=== PATIENT | male | born 1950 | race Caucasian/White ===

== ENCOUNTER 2019-11-11 05:32 | Outpatient (RCR) | payer MEDICARE, OTHER, SELFPAY | END 2019-11-24 00:01 | LOC: ONCMED 05:32 | PROVIDERS: Family Provider Family Medicine; Visit Provider Internal Medicine Hematology & Oncology | DX: Z51.12 Encounter for antineoplastic immunotherapy (principal); C34.11 Malignant neoplasm of upper lobe, right bronchus or lung; J43.9 Emphysema, unspecified; F17.210 Nicotine dependence, cigarettes, uncomplicated; M06.9 Rheumatoid arthritis, unspecified; I48.92 Unspecified atrial flutter; R63.4 Abnormal weight loss; E03.9 Hypothyroidism, unspecified; Z79.899 Other long term (current) drug therapy; Z79.82 Long term (current) use of aspirin; Z79.01 Long term (current) use of anticoagulants; Z79.891 Long term (current) use of opiate analgesic; Z92.3 Personal history of irradiation; Z92.21 Personal history of antineoplastic chemotherapy | CPT/HCPCS: 36591; 80053 ×2; 85025 ×2; 96413 ×2; 99213; 99214 ×2; J1642 ×4; J7050 ×2; J9173 ×4 ==

== ENCOUNTER 2019-12-23 05:52 | Outpatient (RCR) | payer MEDICARE, OTHER, SELFPAY ==
--- NOTE | 2019-11-29 23:02 | ONC FU_ITS ---
[facility] Patient Note Patient: Chaitanya Underwood Unit #: [id number]: 1950 Dictated By: Artie QuinnDate of Visit: Nov 26, 2019 Onc MED Follow-Up/Prog Note Chief Complaint: Lung cancer History of Present Illness: Mr. Underwood is a 69-year-old gentleman who developed right upper back pain including spasm and stiffness. The pain was also radiating to the right arm and axillary area. It was a progressive in nature. He was evaluated by his primary care physician and on 11/03/2018 he had x-ray of the thoracic spine which was suspicious for large mass right upper lobe. On 11/04/[address] scan of thoracic spine which showed no evidence of thoracic spine fracture, central canal or neuroforaminal stenosis or widening or destruction. Again there were reports of the right upper lobe mass abuts the posterior and medial upper lung pleural without evidence of rib or vertebral body destruction. Thoracic spine central canal and neuroforaminal metastatic disease not entirely excluded. On same day he had CT scan of chest done which showed right upper lobe apical segment centrally necrotic mass with irregular thickened wall. No evidence of chest wall invasion or extension into thoracic spine foramina or vertebral bodies.. Mass measures 6.7 x 7.3 x 7.7. Right middle lobe groundglass 4.9 mm nodule is identified. Right lower lobe lateral segment 5 mm noncalcified pulmonary nodule unchanged. Right hilar 2.3 x 1.5 x 1.8 x 1.8 cm necrotic appearing lymph node is also noted. No axillary, mediastinal or left hilar enlarged lymph node seen. Chronic emphysema and pulmonary artery enlargement also seen. Unchanged right middle and lower lobe subcentimeter nodules. 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 CT PET scan done on 12/13/2018 reported 8.2 x 7.7 x 8.9 right apex mass with central necrosis SUV 18.9. Right superior hilar lymph node with SUV 10.9 and additional mid right hilum and precarinal lymph node with SUV of 7.2. No left-sided lymphadenopathy or osseous or liver metastases. 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 Status post colonoscopy done in October 2018 #2 polyps of sigmoid colon removed otherwise unremarkable Mr Underwood has a 40+ year history of smoking now pipe smoker. Had a 20+ pound weight loss due to poor appetite. Rheumatoid arthritis and was on anti-RA medication. Which will be on hold during chemotherapy except low-dose prednisone on as-needed basis He was started on combined chemoradiation with weekly carboplatin and Taxol on 12/30/2018. This treatment plan was concluded combined chemoradiation on 01/30/2019 followed by consolidation therapy with 3 week carboplatin/Taxol on 02/19/2019 and 03/19/2019. He then started on maintenance therapy with immunotherapy durvalumab biweekly for 12 months on 05/01/2019. Patient was on low dose methotrexate and Humira for chronic arthritis, low-dose prednisone and ibuprofen as-needed basis for arthritis again Patient has history of atrial flutter for which he underwent ablation and now on low-dose anticoagulation with Eliquis 2.5 mg twice a day Follow-up CT scan of chest done on 03/20/2019 showed interval cavitation and slightly smaller right upper lobe neoplasm; postradiation changes and stable appearance right lower lobe 3-4 mm noncalcified pulmonary nodule, chronic emphysema; Decrease in the right hilar lymphadenopathy He does admit that he is having a flare of joint/muscle pain and swelling on the day after the durvalumab is administered. He states he is having significant pain in the last 4-5 days. He is using Tylenol and occasionally ibuprofen for the pain. His prednisone dose has not changed. He continues to take 5 mg twice a day. He states he sees Dr. Sheth He does continue with the methotrexate. He is not yet considered resuming the Humira as we have limited data of use with immunotherapy Follow-up CT PET scan done on 08/08/2019 showed marked interval improvement in the right upper lobe mass next Resolution of malignant right hilar and mediastinal lymph nodes and resolution of right cervical lymph node. Continues on durvalumab maintenance therapy. CT PET scan done on 10/24/2019 showed there is a minimal ongoing improvement in the right upper lobe mass now measures 6.6 x 5 cm with SUV of 10.7 and continues to demonstrate significant central necrosis and cavitation. He continues with immunotherapy. Mr. Underwood presents today stating he is having more muscle and joint pain. He states it is been getting worse after each cycle and is now to the point to where he is almost measurable . He states the pain had been letting up between cycles but now does not. He states his pain is as bad today as it was the day after treatment. He has been trying oxycodone/APAP 5/325 mg and is not getting adequate relief. He states that he has had a history of left pleurisy and this pain hurts worse or as bad as a per se. He states his ball valving the left line and the right side chest wall. He states the chest wall pain feels a lot like pleurisy. He states that he thinks maybe the prednisone did help some but is not eager to increase it at this time. He has weaned himself down to 5 mg [address] He states Dr[address] Weiss did talk to him about changing his pain medication and he is willing to do that at this point. He states his pain is affecting his appetite and his ability to take care of himself as much as able to get out do things that he wants to do. He has had shortness of breath with the chest wall pain. He denies any diarrhea or constipation. He said no abdominal cramping. He states he is coughing off and on however it is been nonproductive and there is been no hemoptysis. He denies fever or chills. His states that she has seen a decline in his performance status as well to. His ECOG is 2. Past Medical History: Atrial flutter History of polio Past Surgical History: L-5 discectomy Left hammer toe surgery Left knee repair Right rotator cuff repair Partial colon resection in 2010 Allergies: Aricept Medications: Aspirin 1 Tablet (of 81 mg) Tablet Oral daily Colace 1 (100 mg) Capsule Oral daily PRN DilTIAZem HCl 1 Tablet (of 60 mg) Oral b.i.d. Eliquis 1 Tablet (of 2.5 mg) Oral b.i.d. Folic Acid 1 Tablet (of 2000 mg) Oral daily Ibuprofen 1 Tablet (of 200 mg) Tablet Oral q 6 hours PRN Irbesartan 1 Tablet (of 150 mg) Oral daily methotrexate 1 mg Solution q 7 days Metoprolol Tartrate 1 Tablet (of 50 mg) Oral b.i.d. MiraLax Pack Oral daily Oxycodone-Acetaminophen 1 Tablet (of 10-325 mg) Oral q 4 hours PRN Pantoprazole Sodium 1 Tablet (of 40 mg) Tablet, enteric coated Oral daily PredniSONE 1 Tablet (of 5 mg) Oral daily Family History: Mr. Underwood's mother at age 60: emphysema. Mr. Underwood's father at age 57: brain cancer. His paternal grandfather is : lung cancer. Social History: Mr. Underwood is and he is retired. Mr. Underwood no longer smokes but had smoked for 45 years. He has no history of drinking. He has indicated exposure to the following products: pipe. Pt states he quit smoking this past weekend. Review Of Symptoms: Constitutional Denies fevers, chills, worsening night sweats. He has excessive fatigue-due to pain. Allergic/Immunologic No reactions. Eyes Denies significant visual changes. No diplopia. No amaurosis. ENMT Denies changes in hearing, sore throat, mouth sores, difficulty or changes in swallowing ability, and/or sinus drainage. Hematologic/Lymphatic Denies easy bruising or bleeding. The patient denies any tender or palpable lymph nodes. Respiratory He is having dyspnea on exertion due to persistent chest wall pain. He has intermittent cough but no hemoptysis. Denies orthopnea. Cardiovascular Denies anginal chest pain, palpitations or orthopnea. Gastrointestinal Denies nausea, vomiting, diarrhea, GI bleeding, or worsening constipation. He has chronic constipation but is controlled with meds . Denies change in bowel habits and/or stool color, no heartburn or early satiety. Genitourinary (M) Denies hematuria, dysuria, increased frequency, urgency, hesitancy or incontinence. Musculoskeletal Denies joint pain, swelling or redness-currently. No decreased range of motion. Is having flare of RA symptoms the day after treatment and now they are lasting the entire 2 weeks between treatments-see above. Integumentary Denies chronic rashes, inflammation, ulcerations or skin changes. Neurologic Denies headache, blurred vision, and no areas of focal weakness or numbness. Assisted gait with cane. No sensory problems. Psychiatric Denies insomnia, depression, renuka or mood swings. Vital Signs: Performed on Nov 26, 2019 14:09 Height - 69.00 in Weight - 148.0 lbs (LOW) BSA - 1.82 sq.m BMI - 21.86 Temperature - 98.2 F (LOW) Pulse - 58 /min (LOW) Respiration - 22 /min BP - 117/53 mm(hg) O2 Sat - 100 % Pain - 6,1 - No physically strenuous activity, but ambulatory and able to carry out light or sedentary work (e.g. office work, light house work). (ECOG) Physical Examination: Constitutional Alert, oriented, no acute distress. Skin pink, warm and dry. Head Normocephalic; atraumatic. Eyes Conjunctivae and sclerae are clear and without icterus. Pupils are reactive and equal. Neck Supple without masses or thyromegaly. No jugular venous distension. Hematologic/Lymphatic No petechiae or purpura. No tender or palpable lymph nodes in the cervical or supraclavicular areas. Respiratory Lungs are clear to auscultation without rhonchi or wheezing. Cardiovascular Regular rate and rhythm of heart without murmurs,clicks, gallops or rubs. Chest Left subclavian venous access device insertion site is unremarkable. Abdomen Non-tender, non-distended, no masses, ascites. Good bowel sounds noted in all quads. No guarding or rebound tenderness. No pulsatile masses. Back/Spine Non-tender to palpation. Extremities No visible deformities, no cyanosis, clubbing or edema. Musculoskeletal No tenderness or swelling, normal range of motion without obvious weakness. Integumentary No rashes or lesions. Neurologic No sensory or motor deficits, normal cerebellar function, gait assisted with cane-chronic. Psychiatric Alert and oriented times three. Coherent speech. Verbalizes understanding of our discussions today. Laboratory:Test performed on Nov 10, 2019 08:10 Sodium 139 mmol/L Potassium 3.9 mmol/L Chloride 100 mmol/L CO2 26 mmol/L Anion Gap 16.9 BUN 27 mg/dL Creatinine 0.8 mg/dL Cr Clearance (Est) 83.5900 mL/min eGFR 96.4 mL/min Glucose 97 mg/dl Calcium 9.5 mg/dL Protein, Total 7.2 g/dL Albumin 4.4 g/dL Globulin 2.8 gm/dL Bilirubin, Total 0.4 mg/dL ALT (SGPT) 10 U/L AST (SGOT) 15 U/L Alkaline Phosphatase 95 U/L WBC 7.8 10 3/uL RBC 3.30 10 6/uL HGB 10.6 g/dL HCT 32.9 % MCV 99.7 fl MCH 32.1 pg MCHC 32.2 g/dl RDW 14.9 % Platelet Count 227 10 3/cmm MPV 10.5 fl Neutrophils 5.7 10 3/uL Lymphocytes 1.0 10 3/uL Monocytes 0.9 10 3/uL Eosinophils 0.1 10 3/uL Basophils 0.1 10 3/uL Neutrophil % 73.2 % Lymphocyte % 13.0 % Monocyte % 11.2 % Eosinophil % 1.7 % Basophils % 0.6 % Impression: Poorly differentiated squamous cell carcinoma of right upper lobe per CT-guided biopsy done on 11/14/2018 CT scan of chest done on 11/04/2018 showed right upper lobe mass 6.7 x 7.3 x 7.7 cm with right hilar 2.3 x 1.5 x 1.8 x 1.[address] scan of thoracic spine showed no evidence of thoracic spine fracture, or destruction or neuroforaminal stenosis. CT PET scan done on 12/13/2018 showed 8.2 x 7.7 x 8.9 cms mass right apex with central necrosis and SUV 18.9. T4 Right superior hilar lymph node with SUV 10.9 Additional mid right hilar and precarinal lymphadenopathy with SUV 7.2 No left sided lymphadenopathy or osseous liver metastases. A subcentimeter right cervical level IV lymph node FDG positive suspicious for metastatic disease N3 History of atrial flutter, being managed by cardiology Anemia, normocytic normochromic, due to chemotherapy MRI scan of the head done on 12/10/2018 showed no brain metastases Clinical stage IIIC Right upper back/axillary area pain due to right upper lobe malignancy Chronic emphysema/chronic smoking Weight loss History of colonic high-grade dysplastic polyps status post segmental resection with end-to-end anastomosis and recently done colonoscopy in October 2018 was unremarkable except 2 benign polyps were removed. Started on combined chemoradiation on 12/30/2018 with weekly carboplatin and Taxol Concluded on 01/30/2019 Along with SB RT to the cervical lymph node seen on CT PET scan Started on consolidation therapy with 3 weekly dose of carboplatin/Taxol on 02/19/2019 and finished 2 cycles of consolidation chemotherapy on 03/19/2019 as patient is high risk for recurrence of disease, as per NCCN guidelines, consolidation therapy with two cycle of chemotherapy followed by maintenance therapy with immunotherapy with durvalumab every 2 weeks for 12 months , may give him the best recurrence/progression free status, as literature has shown overall survival at 24 months was 66.3% for durvalumab versus 55.6% for placebo and progression free survival was 17.2 months for durvalumab versus 5.6 month with placebo and median time to or distant metastases was significant longer with durvalumab e.g 28.3 months versus 16.2 months with placebo Follow-up CT scan scan of chest done on 03/20/2019 showed interval cavitation and slightly smaller right upper lobe neoplasm. No interval rib destruction Interval right lateral mediastinal and tracheoesophageal groove fat induration at the level of the mass. Possible represent postradiation changes however tumoral infiltration not entirely excluded Stable appearance of right lower lobe 3-4 mm noncalcified pulmonary nodule Chronic emphysema Cold extremities, hypotension with mild bradycardia, blood pressure 92/39 pulse 60/m, probably medication induced patient is on CARMEN inhibitor, beta blockers and calcium channel beltran, discussed with Dr. Bardales merchandiser seasonal on 05/14/2019 and will reduce his irbesartan dose to 75 mg by mouth daily from 150 mg by mouth daily. Decrease right hilar lymphadenopathy measuring up to 12 mm compared to 18 mm. Follow-up CT PET scan done on 08/08/2019 showed right upper lobe mass now measures 7.3 x 4.8 cm is significantly more necrotic and now demonstrates central cavitation with medial hypermetabolic segments of soft tissue demonstrating an SUV of 11.9. This is consistent with positive response to therapy. There has been resolution of right superior hilar, right mid hilum, pre-carinal and right cervical level IV lymph node. He did have follow-up PET/CT on 10/24/2019 which continues to report minimal improvement in the right upper lobe mass. At that time it measured 6.6 x 5 cm with an SUV of 10.7. There is continued evidence of significant central necrosis and cavitation. There were no other findings to indicate metastatic disease or osseous disease. Mr. Underwood has completed 15 cycles of the Imfinzi. He states that every cycle he is having significant pain but is worsening every time. He states that just about the time it is due to repeat the Imfinzi he is starting to get slight relief. However with this last cycle he has not gotten any relief at all between the cycles. He is requesting to stop the Imfinzi at least temporarily to see if this will help his symptoms. Plan: 1. Hold Imfinzi at Mr. Underwood's request due to worsening side effects. 2. We will plan to set him up with a PET CT for restaging. His last PET/CT was September 2019-however, he is now experiencing more chest wall and lung pain; significant joint and muscle pain after each treatment with immunotherapy-Presumed flare of his rheumatoid arthritis. 3. He is currently using oxycodone 5/325 mg 2 tablets every 4 hours and this is not controlling his pain. We will switch him to MS IR 15 mg and have him try 1 or 2 every 2-4 hours as needed pain. We have also discussed that he could increase his prednisone from 5 mg daily back to 5 mg twice daily but he does not really want to change the prednisone currently. He states he really wants to get off of it. He is aware that he does not feel the morphine is helping much with his pain that he can try that???increasing the prednisone to 5 twice daily. 4. We could plan to add gabapentin in the future if the MSIR and increase prednisone is not helping his pain. 5. We will plan to have him follow-up with Dr. Weiss with a CBC CMP and a TSH after his PET scan. Requested the PET/CT scan be on December 05, 2019. I have also asked that the follow-up appointment not be on Saturday as we have not been getting the PET CT results until Saturday. 6. Mr. Underwood was instructed to contact us in interim should questions or problems arise. 7. Written prescription for MSIR per Dr. Lombardo. I have asked Mr. Underwood to let us know early next week if this is not helping his pain. Signed By: Artie Quinn-TORY, AOROMAN Weiss MD <<Signature on File>>
[2019-12-09 09:00] LABS: Basophils % 0.3 %; Eosinophils # 0.1 10^3/uL (0.0-0.8); Eosinophils % 0.4 %; Hematocrit 34.1 % (42.0-52.0); Lymphocytes # 0.8 10^3/uL (0.8-4.8); Lymphocytes % 7.2 %; Mean Corpuscular HGB Conc 32.3 g/dL (30.0-36.0); Mean Corpuscular Hemoglobin 32.8 pg (28.0-34.0); Mean Corpuscular Volume 101.8 fL (80-94); Mean Platelet Volume 10.7 fL (7.4-10.4); Monocytes # 0.7 10^3/uL (0.2-0.9); Monocytes % 5.9 %; Neutrophils # 9.5 10^3/uL (1.8-7.7); Neutrophils % 85.8 %; Nucleated Red Blood Cells % 0 %; Platelet Count 229 10^3/cmm (130-400); Red Blood Count 3.35 10^6/uL (4.1-5.3); Red Cell Distribution Width 15.6 % (12.1-15.1); White Blood Count 11.1 10^3/uL (4.0-10.0)
[2019-12-09 09:24] LABS: Alanine Aminotransferase 10 U/L (0-41); Alkaline Phosphatase 91 IU/L (40-130); Anion Gap 14.7 (5-19); Aspartate Amino Transferase 14 U/L (0-40); Blood Urea Nitrogen 30 mg/dL (8-23); Calcium 10.2 mg/Dl (8.8-10.2); Carbon Dioxide 27 mmol/L (22-29); Chloride 98 mmol/L (98-107); Globulin 3.3 g/dL (1.3-4.6); Glomerular Filtration Rate 84.2 mL/min (90-130); Glucose 123 mg/dL (74-106); Potassium 4.7 mmol/L (3.5-5.1); Sodium 135 mmol/L (136-145); Thyroid Stimulating Hormone 2.89 uIU/mL (0.27-4.20); Total Bilirubin 0.6 mg/dL (0.15-1.2); Total Protein 7.3 g/dL (6.6-8.7)
--- NOTE | 2019-12-10 08:11 | ONC FU_ITS ---
Dr. Weiss follow up note Patient: Chaitanya Underwood Unit #: [id number]: 1950 Dicatated By: Carmen Weiss M.D.Date of Visit:Dec 09, 2019 Onc Med Follow-up/Prog Note History of Present Illness: Mr. Underwood is a 69-year-old gentleman who developed right upper back pain including spasm and stiffness. The pain was also radiating to the right arm and axillary area. It was a progressive in nature. He was evaluated by his primary care physician and on 11/03/2018 he had x-ray of the thoracic spine which was suspicious for large mass right upper lobe. On 11/04/[address] scan of thoracic spine which showed no evidence of thoracic spine fracture, central canal or neuroforaminal stenosis or widening or destruction. Again there were reports of the right upper lobe mass abuts the posterior and medial upper lung pleural without evidence of rib or vertebral body destruction. Thoracic spine central canal and neuroforaminal metastatic disease not entirely excluded. On same day he had CT scan of chest done which showed right upper lobe apical segment centrally necrotic mass with irregular thickened wall. No evidence of chest wall invasion or extension into thoracic spine foramina or vertebral bodies.. Mass measures 6.7 x 7.3 x 7.7. Right middle lobe groundglass 4.9 mm nodule is identified. Right lower lobe lateral segment 5 mm noncalcified pulmonary nodule unchanged. Right hilar 2.3 x 1.5 x 1.8 x 1.8 cm necrotic appearing lymph node is also noted. No axillary, mediastinal or left hilar enlarged lymph node seen. Chronic emphysema and pulmonary artery enlargement also seen. Unchanged right middle and lower lobe subcentimeter nodules. 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 CT PET scan done on 12/13/2018 reported 8.2 x 7.7 x 8.9 right apex mass with central necrosis SUV 18.9. Right superior hilar lymph node with SUV 10.9 and additional mid right hilum and precarinal lymph node with SUV of 7.2. No left-sided lymphadenopathy or osseous or liver metastases. 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 Status post colonoscopy done in October 2018 #2 polyps of sigmoid colon removed otherwise unremarkable Mr Underwood has a 40+ year history of smoking now pipe smoker. Had a 20+ pound weight loss due to poor appetite. Rheumatoid arthritis and was on anti-RA medication. Which will be on hold during chemotherapy except low-dose prednisone on as-needed basis He was started on combined chemoradiation with weekly carboplatin and Taxol on 12/30/2018. This treatment plan was concluded combined chemoradiation on 01/30/2019 followed by consolidation therapy with 3 week carboplatin/Taxol on 02/19/2019 and 03/19/2019. He then started on maintenance therapy with immunotherapy durvalumab biweekly for 12 months on 05/01/2019. Patient was on low dose methotrexate and Humira for chronic arthritis, low-dose prednisone and ibuprofen as-needed basis for arthritis again Patient has history of atrial flutter for which he underwent ablation and now on low-dose anticoagulation with Eliquis 2.5 mg twice a day Follow-up CT scan of chest done on 03/20/2019 showed interval cavitation and slightly smaller right upper lobe neoplasm; postradiation changes and stable appearance right lower lobe 3-4 mm noncalcified pulmonary nodule, chronic emphysema; Decrease in the right hilar lymphadenopathy He does admit that he is having a flare of joint/muscle pain and swelling on the day after the durvalumab is administered. He states he is having significant pain in the last 4-5 days. He is using Tylenol and occasionally ibuprofen for the pain. His prednisone dose has not changed. He continues to take 5 mg twice a day. He states he sees Dr. Sheth He does continue with the methotrexate. He is not yet considered resuming the Humira as we have limited data of use with immunotherapy Follow-up CT PET scan done on 08/08/2019 showed marked interval improvement in the right upper lobe mass next Resolution of malignant right hilar and mediastinal lymph nodes and resolution of right cervical lymph node. Continues on durvalumab maintenance therapy. CT PET scan done on 10/24/2019 showed there is a minimal ongoing improvement in the right upper lobe mass now measures 6.6 x 5 cm with SUV of 10.7 and continues to demonstrate significant central necrosis and cavitation. He continues with immunotherapy. having more muscle and joint pain. He states it is been getting worse after each cycle and is now to the point to where he is almost measurable . He states the pain had been letting up between cycles but now does not. He states his pain is as bad today as it was the day after treatment. He has been trying oxycodone/APAP 5/325 mg and is not getting adequate relief. He states that he has had a history of left pleurisy and this pain hurts worse or as bad as a per se. He states his ball valving the left line and the right side chest wall. Was started on short-acting morphine Follow-up CT PET scan done on 12/05/2019 showed right upper lobe mass is minimally progressed in size at 7.7 x 4.9 cm but now has SUV of 17.2 up from 10.7 on previous study. Progression is most pronounced in the medial paravertebral portion of the mass. The central portion mass is entirely FDG negative indicating necrosis. Denies ongoing erosion of right fifth rib and a new lytic erosion of T5 vertebral body. Came for follow-up, complaining of progressive mid back pain not sufficiently controlled with short-acting morphine and otherwise no urine or stool incontinence, no lower extremity weakness. No fever or chills, no nausea or vomiting. Patient has history of chronic back pain in the past he has cord ' back surgery'for back pain. Also has history of disc prolapse. But no fever or chills no nausea or vomiting, no shortness of breath no peripheral neuropathy. Medications: Aspirin 1 Tablet (of 81 mg) Tablet Oral daily, Colace 1 (100 mg) Capsule Oral daily PRN, DilTIAZem HCl 1 Tablet (of 60 mg) Oral b.i.d., Eliquis 1 Tablet (of 2.5 mg) Oral b.i.d., Folic Acid 1 Tablet (of 2000 mg) Oral daily, Ibuprofen 1 Tablet (of 200 mg) Tablet Oral q 6 hours PRN, Irbesartan 1 Tablet (of 150 mg) Oral daily, methotrexate 1 mg Solution q 7 days, Metoprolol Tartrate 1 Tablet (of 50 mg) Oral b.i.d., MiraLax Pack Oral daily, Morphine Sulfate 1 - 2 Tablet (of 15 mg) Oral q 2 to 4 hours PRN, Oxycodone-Acetaminophen 1 Tablet (of 10-325 mg) Oral q 4 hours PRN, Pantoprazole Sodium 1 Tablet (of 40 mg) Tablet, enteric coated Oral daily, PredniSONE 1 Tablet (of 5 mg) Oral daily Allergies: Aricept Review of Systems: Constitutional - Appetite is fair and weight is stable. No fever, chills, hot flashes. Positive for occasional night sweats. Energy level is fair, ENMT - No sinus congestion/drainage. No mouth sores. No sore throat or difficulty swallowing, Hematologic/Lymphatic - Pt reports easy bruising, Respiratory - Occasional shortness of breath. Positive for mild cough. No pleuritic pain or hemoptysis, Cardiovascular - No angina pain. No palpitations, Gastrointestinal - No nausea, no vomiting. No heartburn or acid reflux. No diarrhea. Mild constipation. No blood in the stool or black stools, Genitourinary (M) - No dysuria or hematuria. No urinary frequency. No urgency or incontinence, Musculoskeletal - Positive for joint pain, Neurologic - No headache or dizziness. Occasional numbness/tingling in hands and feet. Pt also reports what he believes is nerve pain in his back, Psychiatric - No anxiety/depression at this time, Positive for insomnia. Vital Signs: Performed on Dec 09, 2019 09:53 Height - 69.00 in Weight - 145.8 lbs (LOW) BSA - 1.81 sq.m BMI - 21.53 Temperature - 98.4 F Pulse - 63 /min Respiration - 18 /min BP - 110/47 mm(hg) O2 Sat - 100 % Pain - 9 Performance Status: 2 - Ambulatory/capable of all self-care, unable to perform any work activities. Up and about more than 50% of waking hours. (ECOG) Physical Examination: ENMT - No oral exudates, ulcers, masses, thrush or mucositis. Oropharynx clear. Tongue normal, Respiratory - Lungs are clear to auscultation without rhonchi or wheezing, Cardiovascular - Regular rate and rhythm of heart, Abdomen - Non-tender, non-distended, Good bowel sounds. No guarding or rebound tenderness. No pulsatile masses, Extremities - no edema. Lab/Imaging: Test performed on Dec 09, 2019 09:32 Glucose 123 mg/dL BUN 30 mg/dL Creatinine 0.9 mg/dL Cr Clearance (Est) 74.30 mL/min Sodium 135 mmol/L Potassium 4.7 mmol/L Chloride 98 mmol/L CO2 27 mmol/L Calcium 10.2 mg/dL Protein, Total 7.3 g/dL Albumin 4 g/dL Globulin 3.3 g/dL Bilirubin, Total 0.6 mg/dL Alkaline Phosphatase 91 IU/L AST (SGOT) 14 IU/L ALT (SGPT) 10 IU/L WBC 11.1 10^9/L RBC 3.35 10^12/L HGB 11 g/dL HCT 34.1 % MCV 101.8 fl MCH 32.8 pg MCHC 32.3 g/dL RDW 15.6 % Platelet Count 229 10^9/L MPV 10.7 fL Neutrophils (Gran) 9.5 10^9/L Lymphocytes 0.8 10^9/L Monocytes 0.7 10^9/L Eosinophils 0.1 10^9/L Basophils 0 10^9/L Manual Lymphocytes 7.2 % Manual Monocytes 5.9 % Manual Eosinophils 0.4 % Manual Basophils 0.3 % NRBCs 0 /100 WBC Test performed on Dec 09, 2019 08:45 Neutrophil % 0.4 % Test performed on Nov 10, 2019 08:10 Anion Gap 16.9 eGFR 96.4 mL/min Lymphocyte % 13.0 % Monocyte % 11.2 % Eosinophil % 1.7 % Basophils % 0.6 % Impression: Poorly differentiated squamous cell carcinoma of right upper lobe per CT-guided biopsy done on 11/14/2018 CT scan of chest done on 11/04/2018 showed right upper lobe mass 6.7 x 7.3 x 7.7 cm with right hilar 2.3 x 1.5 x 1.8 x 1.[address] scan of thoracic spine showed no evidence of thoracic spine fracture, or destruction or neuroforaminal stenosis. CT PET scan done on 12/13/2018 showed 8.2 x 7.7 x 8.9 cms mass right apex with central necrosis and SUV 18.9. T4 Right superior hilar lymph node with SUV 10.9 Additional mid right hilar and precarinal lymphadenopathy with SUV 7.2 No left sided lymphadenopathy or osseous liver metastases. A subcentimeter right cervical level IV lymph node FDG positive suspicious for metastatic disease N3 History of atrial flutter, being managed by cardiology Anemia, normocytic normochromic, due to chemotherapy MRI scan of the head done on 12/10/2018 showed no brain metastases Clinical stage IIIC Right upper back/axillary area pain due to right upper lobe malignancy Chronic emphysema/chronic smoking Weight loss History of colonic high-grade dysplastic polyps status post segmental resection with end-to-end anastomosis and recently done colonoscopy in October 2018 was unremarkable except 2 benign polyps were removed. Started on combined chemoradiation on 12/30/2018 with weekly carboplatin and Taxol Concluded on 01/30/2019 Along with SB RT to the cervical lymph node seen on CT PET scan Started on consolidation therapy with 3 weekly dose of carboplatin/Taxol on 02/19/2019 and finished 2 cycles of consolidation chemotherapy on 03/19/2019 as patient is high risk for recurrence of disease, as per NCCN guidelines, consolidation therapy with two cycle of chemotherapy followed by maintenance therapy with immunotherapy with durvalumab every 2 weeks for 12 months , may give him the best recurrence/progression free status, as literature has shown overall survival at 24 months was 66.3% for durvalumab versus 55.6% for placebo and progression free survival was 17.2 months for durvalumab versus 5.6 month with placebo and median time to or distant metastases was significant longer with durvalumab e.g 28.3 months versus 16.2 months with placebo Follow-up CT scan scan of chest done on 03/20/2019 showed interval cavitation and slightly smaller right upper lobe neoplasm. No interval rib destruction Interval right lateral mediastinal and tracheoesophageal groove fat induration at the level of the mass. Possible represent postradiation changes however tumoral infiltration not entirely excluded Stable appearance of right lower lobe 3-4 mm noncalcified pulmonary nodule Chronic emphysema Cold extremities, hypotension with mild bradycardia, blood pressure 92/39 pulse 60/m, probably medication induced patient is on CARMEN inhibitor, beta blockers and calcium channel beltran, discussed with Dr. Bardales milliner helper on 05/14/2019 and will reduce his irbesartan dose to 75 mg by mouth daily from 150 mg by mouth daily. Decrease right hilar lymphadenopathy measuring up to 12 mm compared to 18 mm. Follow-up CT PET scan done on 08/08/2019 showed right upper lobe mass now measures 7.3 x 4.8 cm is significantly more necrotic and now demonstrates central cavitation with medial hypermetabolic segments of soft tissue demonstrating an SUV of 11.9. This is consistent with positive response to therapy. There has been resolution of right superior hilar, right mid hilum, pre-carinal and right cervical level IV lymph node. He did have follow-up PET/CT on 10/24/2019 which continues to report minimal improvement in the right upper lobe mass. At that time it measured 6.6 x 5 cm with an SUV of 10.7. There is continued evidence of significant central necrosis and cavitation. There were no other findings to indicate metastatic disease or osseous disease. Mr. Underwood has completed 15 cycles of the Imfinzi. He states that every cycle he is having significant pain but is worsening every time. He states that just about the time it is due to repeat the Imfinzi he is starting to get slight relief. However with this last cycle he has not gotten any relief at all between the cycles. He is requesting to stop the Imfinzi at least temporarily to see if this will help his symptoms. Plan: . Discussed with patient regarding his CT PET scan which was done on 12/05/2019 showed minimal progression in the size of right upper lobe mass which is 7.7 x 4.9 cm now an SUV of 17.2 up from 10.7 on the previous study. Progression is more pronounced in the medial paravertebral portion of the mass. Center portion of the mass is FDG negative indicating necrosis. There is ongoing erosion of right fifth rib and new lytic erosion of T5 vertebral body. As per patient every time with immunotherapy infusion his pain gets worse and now his mid back pain is more pronounced and progressive and CT PET scan did not show enough changes to explain reason for progressive mid back pain except ongoing healing of right fifth rib and now a lytic erosion lesion of T5 vertebral body. At this point we'll consider MRI scan of thoracic spine to rule out nonmalignant reasons for back pain including disc prolapse or nerve impingement or vertebral or paravertebral pathology. And we'll discuss with radiation oncology regarding CT PET scan and MRI scan findings and if there is any role of palliative radiation In the meantime we will discontinue with durvalumab and consider starting him on palliative chemotherapy with weekly cisplatin/Gemzar, will modified dose according to his performance status and plan to give him cisplatin 25 mg/m??? day 1 and 8 along with gemcitabine thousand milligrams per meter squared on day 1 and 8 and repeat cycle every 21 days Also consider adding long-acting morphine 30 mg every 12 hours and he will continue his pain medication for breakthrough and patient return to clinic after MRI scan of thoracic spine in the meantime we'll obtain approval from his insurance regarding chemotherapy. All the side effect possible benefits associated with chemotherapy including bone marrow suppression, nephrotoxicity, ototoxicity especially with cisplatin were mentioned further teaching will be done by chemotherapy nurse. Signed By: Carmen Weiss M.D. <<Signature on File>>
[2019-12-17 09:23] LABS: Basophils % 0.1 %; Eosinophils # 0.1 10^3/uL (0.0-0.8); Eosinophils % 1.3 %; Hemoglobin 9.9 g/dL (11.7-16.6); Lymphocytes # 0.6 10^3/uL (0.8-4.8); Mean Corpuscular Hemoglobin 31.9 pg (28.0-34.0); Mean Corpuscular Volume 96.8 fL (80-94); Mean Platelet Volume 10.9 fL (7.4-10.4); Monocytes # 0.8 10^3/uL (0.2-0.9); Monocytes % 10.5 %; Neutrophils # 6.4 10^3/uL (1.8-7.7); Neutrophils % 79.7 %; Nucleated Red Blood Cells % 0 %; Platelet Count 210 10^3/cmm (130-400); Red Cell Distribution Width 14.6 % (12.1-15.1)
--- NOTE | 2019-12-17 09:28 | MR_ITS ---
WS: [id number] MRI THORACIC SPINE with and without contrast. HISTORY: RESTAGING EVAL; HX CANCER;BACK PAIN;LUNG CANCER COMPARISON: PET/CT 12/05/2019 TECHNIQUE: Multiplanar sequences are performed in sagittal and axial planes. Study performed with and without contrast. Survey the cervical spine demonstrates disc bulging and stenosis centrally. Progression of known metastatic involvement of the thoracic vertebra and the adjacent paravertebral s oft tissues and ribs. T1 areas of decreased signal in the RIGHT lateral T4 and T5 vertebral bodies wi th extension into the posterior elements and through the T4-5 disc space and paravertebral soft tissu es. Mass from the RIGHT upper lobe pulmonary neoplasm with contiguous extension into the soft tissue s and osseous structures. RIGHT upper lobe, paravertebral and osseous mass extends over at least a le ngth of 8.7 cm and transversely greater than 7 cm. There is enhancement of soft tissues and bone invo lvement of the transverse process and posterior elements of T5 and to a lesser extent T4. Neoplastic extension into the T4-5 neural foramen. There is enhancement abutting the RIGHT lateral thecal sac an d epidural space. Additional mild enhancement in the RIGHT T3-4 foramen. Metastatic involvement of th e fourth and fifth ribs posterior laterally on the RIGHT. There is pleural thickening and enhancement in the RIGHT upper lobe and necrotic RIGHT upper lobe pulmonary mass. Compared to the PET/CT the necrotic RIGHT upper lobe mass and pleural involvement have not significan tly changed. Progression of metastatic disease to the fourth and fifth vertebral bodies. No cord compression. There is enhancement in the prevertebral soft tissue space extending into the posterior mediastinum a djacent to the esophagus. Visualized upper abdomen is negative. MR/MR thoracic spine wo/w [id number] IMPRESSION: 1. 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 2. Soft tissue tumor enhancement extends through the RIGHT T4-5 foramen to abu t the epidural space. There is no cord compression at this time. Additional enh ancement without extension to the epidural space in the RIGHT T3-4 foramen. 3. Necrotic RIGHT upper lobe neoplasm and adjacent pleural involvement. Pleura l involvement has progressed but the overall neoplasm on this examination is pr obably not changed. 4. Soft tissue tumor extends into the prevertebral soft tissue space and exten ds posterior to the esophagus at the T3-T5 levels.
[2019-12-17 09:37] LABS: Alanine Aminotransferase 10 U/L (0-41); Albumin Level 3.5 g/dL (3.5-5.2); Alkaline Phosphatase 80 IU/L (40-130); Aspartate Amino Transferase 15 U/L (0-40); Blood Urea Nitrogen 23 mg/dL (8-23); Calcium 10.1 mg/Dl (8.8-10.2); Carbon Dioxide 28 mmol/L (22-29); Chloride 93 mmol/L (98-107); Globulin 3.1 g/dL (1.3-4.6); Glomerular Filtration Rate 84.2 mL/min (90-130); Glucose 127 mg/dL (74-106); Sodium 132 mmol/L (136-145); Total Bilirubin 0.4 mg/dL (0.15-1.2); Total Protein 6.6 g/dL (6.6-8.7)
--- NOTE | 2019-12-21 15:34 | ONC FU_ITS ---
Dr. Weiss follow up note Patient: Chaitanya Underwood Unit #: [id number]: 1950 Dicatated By: Carmen Weiss M.D.Date of Visit:Dec 21, 2019 Onc Med Follow-up/Prog Note History of Present Illness: Mr. Underwood is a 69-year-old gentleman who developed right upper back pain including spasm and stiffness. The pain was also radiating to the right arm and axillary area. It was a progressive in nature. He was evaluated by his primary care physician and on 11/03/2018 he had x-ray of the thoracic spine which was suspicious for large mass right upper lobe. On 11/04/[address] scan of thoracic spine which showed no evidence of thoracic spine fracture, central canal or neuroforaminal stenosis or widening or destruction. Again there were reports of the right upper lobe mass abuts the posterior and medial upper lung pleural without evidence of rib or vertebral body destruction. Thoracic spine central canal and neuroforaminal metastatic disease not entirely excluded. On same day he had CT scan of chest done which showed right upper lobe apical segment centrally necrotic mass with irregular thickened wall. No evidence of chest wall invasion or extension into thoracic spine foramina or vertebral bodies.. Mass measures 6.7 x 7.3 x 7.7. Right middle lobe groundglass 4.9 mm nodule is identified. Right lower lobe lateral segment 5 mm noncalcified pulmonary nodule unchanged. Right hilar 2.3 x 1.5 x 1.8 x 1.8 cm necrotic appearing lymph node is also noted. No axillary, mediastinal or left hilar enlarged lymph node seen. Chronic emphysema and pulmonary artery enlargement also seen. Unchanged right middle and lower lobe subcentimeter nodules. 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 CT PET scan done on 12/13/2018 reported 8.2 x 7.7 x 8.9 right apex mass with central necrosis SUV 18.9. Right superior hilar lymph node with SUV 10.9 and additional mid right hilum and precarinal lymph node with SUV of 7.2. No left-sided lymphadenopathy or osseous or liver metastases. 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 Status post colonoscopy done in October 2018 #2 polyps of sigmoid colon removed otherwise unremarkable Mr Underwood has a 40+ year history of smoking now pipe smoker. Had a 20+ pound weight loss due to poor appetite. Rheumatoid arthritis and was on anti-RA medication. Which will be on hold during chemotherapy except low-dose prednisone on as-needed basis He was started on combined chemoradiation with weekly carboplatin and Taxol on 12/30/2018. This treatment plan was concluded combined chemoradiation on 01/30/2019 followed by consolidation therapy with 3 week carboplatin/Taxol on 02/19/2019 and 03/19/2019. He then started on maintenance therapy with immunotherapy durvalumab biweekly for 12 months on 05/01/2019. Patient was on low dose methotrexate and Humira for chronic arthritis, low-dose prednisone and ibuprofen as-needed basis for arthritis again Patient has history of atrial flutter for which he underwent ablation and now on low-dose anticoagulation with Eliquis 2.5 mg twice a day Follow-up CT scan of chest done on 03/20/2019 showed interval cavitation and slightly smaller right upper lobe neoplasm; postradiation changes and stable appearance right lower lobe 3-4 mm noncalcified pulmonary nodule, chronic emphysema; Decrease in the right hilar lymphadenopathy He does admit that he is having a flare of joint/muscle pain and swelling on the day after the durvalumab is administered. He states he is having significant pain in the last 4-5 days. He is using Tylenol and occasionally ibuprofen for the pain. His prednisone dose has not changed. He continues to take 5 mg twice a day. He states he sees Dr. Sheth He does continue with the methotrexate. He is not yet considered resuming the Humira as we have limited data of use with immunotherapy Follow-up CT PET scan done on 08/08/2019 showed marked interval improvement in the right upper lobe mass next Resolution of malignant right hilar and mediastinal lymph nodes and resolution of right cervical lymph node. Continues on durvalumab maintenance therapy. CT PET scan done on 10/24/2019 showed there is a minimal ongoing improvement in the right upper lobe mass now measures 6.6 x 5 cm with SUV of 10.7 and continues to demonstrate significant central necrosis and cavitation. He continues with immunotherapy. having more muscle and joint pain. He states it is been getting worse after each cycle and is now to the point to where he is almost measurable . He states the pain had been letting up between cycles but now does not. He states his pain is as bad today as it was the day after treatment. He has been trying oxycodone/APAP 5/325 mg and is not getting adequate relief. He states that he has had a history of left pleurisy and this pain hurts worse or as bad as a per se. He states his ball valving the left line and the right side chest wall. Was started on short-acting morphine Follow-up CT PET scan done on 12/05/2019 showed right upper lobe mass is minimally progressed in size at 7.7 x 4.9 cm but now has SUV of 17.2 up from 10.7 on previous study. Progression is most pronounced in the medial paravertebral portion of the mass. The central portion mass is entirely FDG negative indicating necrosis. Denies ongoing erosion of right fifth rib and a new lytic erosion of T5 vertebral body. complaining of progressive mid back pain not sufficiently controlled with short-acting morphine and otherwise no urine or stool incontinence, no lower extremity weakness. No fever or chills, no nausea or vomiting. Patient has history of chronic back pain in the past he has ' back surgery'for back pain. 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 There is no cord compression at this time. Additional enhancement without extension to the epidural space and the right T3-4 for a month. Necrotic right upper lobe neoplasm and adjacent pleural involvement. Involvement has progressed but overall neoplasm on the examination is probably not changed. Soft tissue tumor extends into prevertebral soft tissue space and extends posterior to the esophagus at the T3-5 levels. Came for follow-up, complaining of mid back pain especially when he moves and current pain medication is controlling that reasonably well. Pain is less when he stabilize his spine. Denies any lower extremity weakness or numbness denies any urine or stool incontinence. He is here to discuss but is MRI thoracic spine findings and further plans Medications: Aspirin 1 Tablet (of 81 mg) Tablet Oral daily, Colace 1 (100 mg) Capsule Oral daily PRN, DilTIAZem HCl 1 Tablet (of 60 mg) Oral b.i.d., Eliquis 1 Tablet (of 2.5 mg) Oral b.i.d., Folic Acid 1 Tablet (of 2000 mg) Oral daily, Ibuprofen 1 Tablet (of 200 mg) Tablet Oral q 6 hours PRN, Irbesartan 1 Tablet (of 150 mg) Oral daily, methotrexate 1 mg Solution q 7 days, Metoprolol Tartrate 1 Tablet (of 50 mg) Oral b.i.d., MiraLax Pack Oral daily, Morphine Sulfate 1 - 2 Tablet (of 15 mg) Oral q 2 to 4 hours PRN, Oxycodone-Acetaminophen 1 Tablet (of 10-325 mg) Oral q 4 hours PRN, Pantoprazole Sodium 1 Tablet (of 40 mg) Tablet, enteric coated Oral daily, PredniSONE 1 Tablet (of 5 mg) Oral daily Allergies: Aricept Review of Systems: Constitutional - Appetite is fair and weight is stable. No fever, chills, hot flashes. Positive for occasional night sweats. Energy level is fair, ENMT - No sinus congestion/drainage. No mouth sores. No sore throat or difficulty swallowing, Hematologic/Lymphatic - Pt reports easy bruising, Respiratory - Occasional shortness of breath. Positive for mild cough. No pleuritic pain or hemoptysis, Cardiovascular - No angina pain. No palpitations, Gastrointestinal - No nausea, no vomiting. No heartburn or acid reflux. No diarrhea. Mild constipation. No blood in the stool or black stools, Genitourinary (M) - No dysuria or hematuria. No urinary frequency. No urgency or incontinence, Musculoskeletal - Positive for joint pain, Neurologic - No headache or dizziness. Occasional numbness/tingling in hands and feet. Pt also reports what he believes is nerve pain in his back, Psychiatric - No anxiety/depression at this time, Positive for insomnia. Vital Signs: Performed on Dec 21, 2019 08:43 Height - 69.00 in Weight - 142.8 lbs (LOW) BSA - 1.79 sq.m BMI - 21.09 Temperature - 98.5 F Pulse - 66 /min Respiration - 20 /min BP - 103/40 mm(hg) O2 Sat - 97 % Pain - 8 Performance Status: 2 - Ambulatory/capable of all self-care, unable to perform any work activities. Up and about more than 50% of waking hours. (ECOG) Physical Examination: ENMT - No oral exudates, ulcers, masses, thrush or mucositis. Oropharynx clear. Tongue normal, Respiratory - Lungs are clear to auscultation without rhonchi or wheezing, Cardiovascular - Regular rate and rhythm of heart, Abdomen - Non-tender, non-distended, Good bowel sounds. No guarding or rebound tenderness. No pulsatile masses, Extremities - no edema. Lab/Imaging: Test performed on Dec 17, 2019 09:05 Sodium 132 mmol/L Potassium 4.0 mmol/L Chloride 93 mmol/L CO2 28 mmol/L Anion Gap 15.0 BUN 23 mg/dL Creatinine 0.9 mg/dL Cr Clearance (Est) 74.50 mL/min eGFR 84.2 mL/min Glucose 127 mg/dL Calcium 10.1 mg/Dl Protein, Total 6.6 g/dL Albumin 3.5 g/dL Globulin 3.1 g/dL Bilirubin, Total 0.4 mg/dL ALT (SGPT) 10 U/L AST (SGOT) 15 U/L Alkaline Phosphatase 80 IU/L WBC 8.0 10 3/uL RBC 3.10 10 6/uL HGB 9.9 g/dL HCT 30.0 % MCV 96.8 fL MCH 31.9 pg MCHC 33.0 g/dL RDW 14.6 % Platelet Count 210 10 3/cmm MPV 10.9 fL Neutrophils 6.4 10 3/uL Lymphocytes 0.6 10 3/uL Monocytes 0.8 10 3/uL Eosinophils 0.1 10 3/uL Basophils 0.0 10 3/uL Neutrophil % 79.7 % Lymphocyte % 8.0 % Monocyte % 10.5 % Eosinophil % 1.3 % Basophils % 0.1 % Test performed on Dec 09, 2019 09:32 Manual Lymphocytes 7.2 % Manual Monocytes 5.9 % Manual Eosinophils 0.4 % Manual Basophils 0.3 % NRBCs 0 /100 WBC Impression: Poorly differentiated squamous cell carcinoma of right upper lobe per CT-guided biopsy done on 11/14/2018 CT scan of chest done on 11/04/2018 showed right upper lobe mass 6.7 x 7.3 x 7.7 cm with right hilar 2.3 x 1.5 x 1.8 x 1[address] scan of thoracic spine showed no evidence of thoracic spine fracture, or destruction or neuroforaminal stenosis. CT PET scan done on 12/13/2018 showed 8.2 x 7.7 x 8.9 cms mass right apex with central necrosis and SUV 18.9. T4 Right superior hilar lymph node with SUV 10.9 Additional mid right hilar and precarinal lymphadenopathy with SUV 7.2 No left sided lymphadenopathy or osseous liver metastases. A subcentimeter right cervical level IV lymph node FDG positive suspicious for metastatic disease N3 History of atrial flutter, being managed by cardiology Anemia, normocytic normochromic, due to chemotherapy MRI scan of the head done on 12/10/2018 showed no brain metastases Clinical stage IIIC Right upper back/axillary area pain due to right upper lobe malignancy Chronic emphysema/chronic smoking Weight loss History of colonic high-grade dysplastic polyps status post segmental resection with end-to-end anastomosis and recently done colonoscopy in October 2018 was unremarkable except 2 benign polyps were removed. Started on combined chemoradiation on 12/30/2018 with weekly carboplatin and Taxol Concluded on 01/30/2019 Along with SB RT to the cervical lymph node seen on CT PET scan Started on consolidation therapy with 3 weekly dose of carboplatin/Taxol on 02/19/2019 and finished 2 cycles of consolidation chemotherapy on 03/19/2019 as patient is high risk for recurrence of disease, as per NCCN guidelines, consolidation therapy with two cycle of chemotherapy followed by maintenance therapy with immunotherapy with durvalumab every 2 weeks for 12 months , may give him the best recurrence/progression free status, as literature has shown overall survival at 24 months was 66.3% for durvalumab versus 55.6% for placebo and progression free survival was 17.2 months for durvalumab versus 5.6 month with placebo and median time to or distant metastases was significant longer with durvalumab e.g 28.3 months versus 16.2 months with placebo Follow-up CT scan scan of chest done on 03/20/2019 showed interval cavitation and slightly smaller right upper lobe neoplasm. No interval rib destruction Interval right lateral mediastinal and tracheoesophageal groove fat induration at the level of the mass. Possible represent postradiation changes however tumoral infiltration not entirely excluded Stable appearance of right lower lobe 3-4 mm noncalcified pulmonary nodule Chronic emphysema Cold extremities, hypotension with mild bradycardia, blood pressure 92/39 pulse 60/m, probably medication induced patient is on CARMEN inhibitor, beta blockers and calcium channel beltran, discussed with Dr. Bardales chief credit officer on 05/14/2019 and will reduce his irbesartan dose to 75 mg by mouth daily from 150 mg by mouth daily. Decrease right hilar lymphadenopathy measuring up to 12 mm compared to 18 mm. Follow-up CT PET scan done on 08/08/2019 showed right upper lobe mass now measures 7.3 x 4.8 cm is significantly more necrotic and now demonstrates central cavitation with medial hypermetabolic segments of soft tissue demonstrating an SUV of 11.9. This is consistent with positive response to therapy. There has been resolution of right superior hilar, right mid hilum, pre-carinal and right cervical level IV lymph node. He did have follow-up PET/CT on 10/24/2019 which continues to report minimal improvement in the right upper lobe mass. At that time it measured 6.6 x 5 cm with an SUV of 10.7. There is continued evidence of significant central necrosis and cavitation. There were no other findings to indicate metastatic disease or osseous disease. Mr. Underwood has completed 15 cycles of the Imfinzi. He states that every cycle he is having significant pain but is worsening every time. He states that just about the time it is due to repeat the Imfinzi he is starting to get slight relief. However with this last cycle he has not gotten any relief at all between the cycles. He is requesting to stop the Imfinzi at least temporarily to see if this will help his symptoms. Plan: . Discussed with patient regarding his labs white blood count 8 hemoglobin 9.9 hematocrit 30 platelets 210,000 CMP within normal limit except sodium 132. An MRI scan of thoracic spine findings which showed disease progression but no cord compression or epidural space involvement. Clinically, patient is doing reasonably well at in moderate distress due to progressive mid upper back pain and follow-up MRI scan of thoracic spine shows disease progression but no evidence of cord compression or epidural space involvement at this time. His case was discussed with radiation oncology Dr. Aldana who will evaluate him for palliative radiation if possible if not then will consider palliative chemotherapy with weekly cisplatin/gemcitabine, once approval from his insurance obtained. We will refer him to radiation oncology for evaluation if palliative radiation is considered then will hold his chemotherapy therapy until radiation is completed otherwise start him on palliative chemotherapy as planned. And return to clinic 1 week after chemotherapy is initiated. Patient was also advised to use thoracic brace to stabilize T4-T5 spine area, which may improve his pain while taking pain medication as directed. Role of hospice was also discussed but patient and his wants to try radiation if possible if not then palliative chemotherapy before they consider hospice care. Signed By: Carmen Weiss M.D. <<Signature on File>>
[2019-12-22] MEDS: sodium chloride 0.9% 1,000 ML 999 ML IV (10:25)
--- NOTE | 2019-12-23 | CTR_ITS ---
Radation Therapy Planning CT images; total exam DLP: 386.16 mGy-cm MTDD
== END 2019-12-25 23:59 | disposition home or self-care (01) ==
LOC: ONCMED 05:52
PROVIDERS: Internal Medicine Hematology & Oncology; Family Provider Family Medicine; PCP Family Medicine; Visit Provider Radiology Radiation Oncology
DX: C79.51 Secondary malignant neoplasm of bone (principal); C34.11 Malignant neoplasm of upper lobe, right bronchus or lung; C77.8 Secondary and unspecified malignant neoplasm of lymph nodes of multiple regions; C78.2 Secondary malignant neoplasm of pleura; R63.4 Abnormal weight loss; M06.9 Rheumatoid arthritis, unspecified; I48.92 Unspecified atrial flutter; Z79.01 Long term (current) use of anticoagulants; J43.9 Emphysema, unspecified; D64.81 Anemia due to antineoplastic chemotherapy; G89.3 Neoplasm related pain (acute) (chronic); Z79.899 Other long term (current) drug therapy; Z79.82 Long term (current) use of aspirin; Z79.52 Long term (current) use of systemic steroids; Z79.891 Long term (current) use of opiate analgesic; Z90.49 Acquired absence of other specified parts of digestive tract; Z92.3 Personal history of irradiation; Z87.891 Personal history of nicotine dependence; Z86.12 Personal history of poliomyelitis; Z92.21 Personal history of antineoplastic chemotherapy
CPT/HCPCS: 36591; 72157; 77290; 77334; 77470; 80053; 84443; 85025; 96360; 99214; 99215; A9579; J7030; Q9967

== ENCOUNTER → 2019-12-29 13:13 | Outpatient (BNVA) | payer MEDICARE, OTHER, SELFPAY | PROVIDERS: Family Provider Family Medicine; PCP Family Medicine; Visit Provider Internal Medicine Rheumatology | DX: M05.89 Other rheumatoid arthritis with rheumatoid factor of multiple sites (principal); Z79.899 Other long term (current) drug therapy; M15.9 Polyosteoarthritis, unspecified; J44.9 Chronic obstructive pulmonary disease, unspecified; Z87.891 Personal history of nicotine dependence | CPT/HCPCS: 99214 ==

== ENCOUNTER 2020-01-08 05:47 | Outpatient (RCR) | payer MEDICARE, OTHER, SELFPAY ==
--- NOTE | 2019-12-31 17:57 | ONCRAD TMN_ITS ---
Radiation Oncology Weekly Treatment Management Patient: Chaitanya Underwood MR#: [id number] : 1950> Age: 69> Sex: Male Dictated by: Dr. Armand Aldana Date of Service: 12/30/2019 Referring Physician(s) : Fernando Guerrero M.D. Primary Diagnosis: C79.51 - Secondary malignant neoplasm of bone, Diagnosed 12/21/2019 (Active) C34.11 - Malignant neoplasm of upper lobe, right bronchus or lung, Diagnosed 11/14/2018 (Active) Stage IIIB, T4, N3, M0 Radiotherapy to date: Course: T SpineSBRT, Treatment Site: T spine SBRT, Ref. ID: [id number], Energy: 6X, Dose/Fx (cGy): 500, #Fx: , Dose Correction (cGy): 0, Total Dose (cGy): 500, Start Date: 12/30/2019, Elapsed Days: 0 Current Complaints/Interval History: Constitutional Complains of fever. Denies lack of appetite. Weight gain of 5 lbs since starting decadron. Complains of mid upper back pain that was improved with decadron Respiratory Denies cough, dyspnea and wheezing. Gastrointestinal Complains of constipation. Current Medications: Aspirin, colace, dilTIAZem HCl, eliquis, folic Acid, ibuprofen, irbesartan, methotrexate, metoprolol Tartrate, miraLax, morphine Sulfate, morphine Sulfate, morphine Sulfate ER, oxycodone-Acetaminophen, oxycodone-Acetaminophen, pantoprazole Sodium, predniSONE. Allergies: Aricept. Vital Signs: Performed on 12/30/2019 1:56 PM Weight - 149 lbs, Temperature - 97.9 f, Pulse - 57, Respiration - 16, O2 Sat - 100 %, Pain - 7 and BP - 139/ 59 mm(hg)(/low). Physical Exam: Appears stable, no skin erythema or desquamation. Performance Status: 2 - Ambulatory/capable of all self-care, unable to perform any work activities. Up and about more than 50% of waking hours. (ECOG) Lab: Test performed on 12/17/2019 9:05 AM RBC - 3.10 10 6/ul (low), HGB - 9.9 g/dl (low), HCT - 30.0 % (low), MCV - 96.8 fl (high), MPV - 10.9 fl (high), Lymphocytes - 0.6 10 3/ul (low), Sodium - 132 mmol/l (low), Chloride - 93 mmol/l (low), eGFR - 84.2 ml/min (low) and Glucose - 127 mg/dl (high). Imaging: No new diagnostic imaging was performed since the last weekly treatment visit. All radiation therapy related imaging (including but not limited to CBCT generated images) was reviewed. Appropriate changes, if any, were made to assure accurate target localization. Impression/Plan: Tolerating treatment well. Continue treatment as planned. I instructed the patient to decrease the use of morphine since his pain is better and he is constipated. Continue decadron 4mg bid and start tapering to 4mg daily on this coming Saturday x 5days, then continue tapering to 2mg daily x 5 days and then stop. CPT: 49134 Signed by: Dr. Armand Aldana>12/31/2019 5:55:49 PM <<Signature on File>>
== END 2020-01-23 23:59 | disposition home or self-care (01) ==
LOC: ONCMED 05:47
PROVIDERS: Family Provider Family Medicine; PCP Family Medicine; Visit Provider Radiology Radiation Oncology
DX: Z51.0 Encounter for antineoplastic radiation therapy (principal); C79.51 Secondary malignant neoplasm of bone; C34.11 Malignant neoplasm of upper lobe, right bronchus or lung; G89.3 Neoplasm related pain (acute) (chronic); K59.00 Constipation, unspecified; Z79.01 Long term (current) use of anticoagulants; Z79.891 Long term (current) use of opiate analgesic
CPT/HCPCS: 77014; 77280; 77295; 77300; 77334; 77336; 77370; 77373; 77435

== ENCOUNTER 2020-01-20 15:35 | Inpatient (IN) | payer MEDICARE, OTHER, SELFPAY ==
[2020-01-20 15:43] VITALS: BP 137/43; PULSE 62; RESP 18; TEMP 36.8; O2SAT 97; BMI 22.1
--- NOTE | 2020-01-20 20:00 | XR_ITS ---
WS: [id number] Portable AP upright chest, 01/20/2020 Clinical Data: soa Comparison: Portable chest, 11/14/2018. Findings: The right upper lobe mass has diminished slightly in size compared to the previous chest x- ray. There is a left subclavian catheter ending in the superior vena cava. The left lung is normal. T he pulmonary vascularity is not increased. No pneumonia or pneumothorax is seen. The aortic arch show s calcification and tortuosity. Heart is normal. The pulmonary vascularity is not increased. The righ t pedicle on the T5 vertebral body is absent which is consistent with invasion of the T5 vertebral b tess. XR/XR chest 1V portable [id number] Impression: 1. Decrease in size of right apical mass. 2. Satisfactory position of left subclavian catheter. 3. Atherosclerosis.
--- NOTE | 2020-01-20 20:01 | ECG_ITS ---
Measurements Intervals [place] Rate: 128 P: [place]: 0 QRS: 50 QRSD: 102 T: 56 QT: 294 QTc: 429 ATRIAL FLUTTER WITH RAPID VENTRICULAR RESPONSE INDETERMINATE AXIS INCOMPLETE RIGHT BUNDLE BRANCH BLOCK MODERATE ST DEPRESSION [0.05+ mV ST DEPRESSION] Compared to ECG 01/14/2016 07:13:08 Indeterminate axis now present Incomplete right bundle-branch block now present ST (T wave) deviation now present Sinus rhythm no longer present Early repolarization no longer present Electronically Signed On 01-21-2020 6:27:14 [employer] by Lidia Kenny M.D. [email or web address]
--- NOTE | 2020-01-20 20:03 | ED_ITS ---
Entered by Capri Murphy, acting as scribe for Jan 20, 2020 15:35 HPI - SOB/Dyspnea General: Chief Complaint: Shortness of Breath/Dyspnea Stated Complaint: sob Time Seen by Provider: 01/20/20 20:00 Source: patient and RN notes reviewed Mode of arrival: ambulatory Limitations: no limitations History of Present Illness: HPI Narrative: 69 yo male presents to ED with complaints of shortness of breath and bilateral lower extremity swelling. He said he called Dr Aldana's nurse last week, after he was taken off of steroids for a week, and has had no relief of the swelling. He feels better sleeping while in a recliner. He said he had an episode of sharp RLQ pain that lasted a few seconds. MD elicited complaint: shortness of breath Pertinent past history: other (primary squamous cell carcinoma of R lung) Onset (ago): week(s) (1) Context: other (medication change) Timing: constant Severity: moderate Exacerbating factors: lying flat and exertion Relieving factors: rest and upright position Known history of: other (primary squamous cell carcinoma or R lung) Associated symptoms: Reports orthopnea; Deny abdominal pain, fever(s), nausea, polyuria or vomiting Related Data: Home oxygen amount: none Review of Systems General: Reports: 10 or more systems reviewed and unremarkable except in HPI and below Const: Denies: fever or chills Eyes: Denies: change in vision ENMT: Denies: throat pain Card: Reports: shortness of breath when lying down GI: Denies: abdominal pain, nausea, vomiting or change in bowel habits Musc: Denies: muscle weakness Skin/Breast: Denies: rash Neuro: Denies: headache Psych: Denies: hopelessness or suicidal ideation Endo: Denies: excessive urination Jasmeet/Lymph: Denies: easy bruising or easy bleeding All/Imm: Denies: hives PFS ED PFSH: Medical History (Updated 12/29/19 @ 07:33 by Rosalee Sheth MD) Immunosuppression 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 Social History (Updated 12/29/19 @ 13:48 by Kim Drew LPN) Smoking and tobacco status: never smoked Quit status (tobacco): has quit using tobacco Year quit tobacco: 2108 Lives independently: Yes Household members: spouse Marital status: History of recent travel: No Physical Exam Const: COMMON NORMALS: no apparent distress, oriented x3, alert and well nourished HENMT: COMMON NORMALS: normocephalic and external nose normal HEAD & SCALP: normocephalic NOSE: external nose normal MOUTH: no trismus Eye: COMMON NORMALS: EOMs intact bilaterally and conjunctivae normal CONJUNCTIVA: Yes conjunctivae normal Neck/C-Spine: COMMON NORMALS: full ROM, no lymphadenopathy and supple CERVICAL SPINE: Yes cervical ROM normal Lymph: LYMPHATIC: no lymphadenopathy noted Resp: COMMON NORMALS: normal respiratory effort, no retractions, no use of accessory muscles and clear to auscultation bilaterally EFFORT & INSPECTION: Yes able to speak in complete sentences AUSCULTATION: clear to auscultation bilaterally Cardio: OTHER: Tacky rate approximately 140 on exam GI: COMMON NORMALS: normal to inspection, nondistended, normoactive bowel sounds, soft to palpation, non-tender and no masses INSPECTION: Yes normal to inspection AUSCULTATION: Yes normoactive bowel sounds PALPATION: Yes soft, No guarding and No rigid Back/Pelvis: OTHER: Normal range of motion Extremity: RIGHT LOWER EXTREMITY: Yes lower leg (2+ edema) LEFT LOWER EXTREMITY: Yes lower leg (2+ edema) Neuro: COMMON NORMALS: oriented x3 and CN's II-XII intact bilaterally SENSORIUM/ORIENTATION: Yes alert SPEECH: speech normal Psych: COMMON NORMALS: mental status grossly normal Skin: COMMON NORMALS: no rashes or lesions noted GENERAL SKIN EXAM: no rashes or lesions noted Course Vital Signs: Vital signs: Vital Signs Temperature 98.3 F 01/20/20 15:43 Pulse Rate 62 01/20/20 15:43 Respiratory Rate 10 L 01/20/20 21:23 Blood Pressure 137/43 01/20/20 15:43 Pulse Oximetry 98 01/20/20 21:23 MDM - SOB/Dyspnea MDM Narrative: Medical decision making narrative: 69-year-old male with 1 week history of significant lower extremity edema and known history of lung cancer undergoing radiation but not chemotherapy. On exam he had a heart rate in the 140s and has a known history of a flutter. He was given Cardizem 20 mg IV which improved his heart rate temporarily to the 70s but then increased back up to 140. Cardizem drip was ordered to be started and hospitalist was consulted for admission. He would likely benefit from at least observation stay for further work-up of his new lower extremity edema. He has not had an echo that I can find recently but his chest x-ray does not show an enlarged heart at this time. Lab Data: Labs: Lab Results 01/20/20 01/20/20 01/20/20 Range/Units 20:08 20:08 20:08 WBC 4.3 (4.0-10.0) 10^3/ uL RBC 3.24 L (4.1-5.3) 10^6/u L Hgb 10.0 L (11.7-16.6) g/dL Hct 30.9 L (42.0-52.0) % MCV 95.4 H (80-94) fL MCH 30.9 (28.0-34.0) pg MCHC 32.4 (30.0-36.0) g/dL RDW 16.8 H (12.1-15.1) % Plt Count 206 (130-400) 10^3/c mm MPV 10.3 (7.4-10.4) fL Neut % (Auto) 75.5 % Lymph % (Auto) 13.2 % Humphreys % (Auto) 9.5 % Eos % (Auto) 0.9 % Baso % (Auto) 0.2 % Neut # (Auto) 3.3 (1.8-7.7) 10^3/u L Lymph # (Auto) 0.6 L (0.8-4.8) 10^3/u L Humphreys # (Auto) 0.4 (0.2-0.9) 10^3/u L Eos # (Auto) 0.0 (0.0-0.8) 10^3/u L Baso # (Auto) 0.0 (0.0-0.1) 10^3/u L Nucleated RBC % (a uto) 0 % Nucleated RBCs # 0.0 /100WBC Sodium 130 L (136-145) mmol/L Potassium 4.1 (3.5-5.1) mmol/L Chloride 95 L (98-107) mmol/L Carbon Dioxide 27 (22-29) mmol/L Anion Gap 12.1 (5-19) BUN 24 H (8-23) mg/dL Creatinine 0.6 L (0.7-1.2) mg/dL GFR Calculation 134.4 H (90-130) mL/min Glucose 87 (65-115) mg/dL Calcium 9.8 (8.5-10.5) mg/dL Magnesium 1.8 (1.7-2.3) mg/dL Total Bilirubin 0.6 (0.15-1.2) mg/dL AST 25 (0-40) U/L ALT 34 (0-41) U/L Alkaline Phosphata se 97 (40-130) IU/L NT-Pro-B Natriuret Pep 1632 H (0-125) pg/mL Total Protein 6.8 (6.6-8.7) g/dL Albumin 3.0 L (3.5-5.2) g/dL Globulin 3.8 (1.3-4.6) g/dL Imaging Data^: CXR: Attestation: I personally reviewed and interpreted this imaging study as follows: My impression: No cardiomegaly. There is opacity which is his tumor right upper lobe that appears unchanged from previous x-ray EKG Data^: EKG 1: Attestation: I personally reviewed and interpreted this EKG as follows: EKG Interpretation Date: 01/20/20 EKG interpretation time: 21:18 Interpretation: A flutter with RVR rate 128 Discharge Plan Discharge Prescriptions: No Action irbesartan 75 mg tablet 75 mg PO DAILY RF: 0 diltiazem HCl 60 mg capsule,extended release 12 hr 60 mg PO BID RF: 0 metoprolol tartrate 50 mg tablet 50 mg PO BID RF: 0 Eliquis 2.5 mg tablet 2.5 mg PO BID RF: 0 pantoprazole 40 mg tablet,delayed release (DR/EC) 40 mg PO DAILY RF: 0 aspirin [Adult Aspirin Regimen] 81 mg tablet,delayed release (DR/EC) 81 mg PO DAILY RF: 0 FOLIC ACID 2,000 mg tablet 1 cap PO DAILY RF: 0 prednisone 5 mg tablet 5 mg PO DAILY PRN (Reason: UNKNOWN) RF: 0 oxycodone-acetaminophen [Percocet] 5-325 mg tablet 1 tab PO Q6H PRN (Reason: Pain) RF: 0 morphine 30 mg capsule, ER multiphase 24 hr 30 mg PO Q24H RF: 0 morphine 30 mg tablet 30 mg PO Q6H PRN (Reason: Pain) RF: 0 Coding Level of Care Code ED Oil Filters Inspector for Chg Fwd Exam Comprehensive The documentation recorded by the Jeffrey chan Valerie R, accurately reflects the service I personally performed and the decisions made by me, Barb Clemons MD Jan 20, 2020 15:35
[2020-01-20 20:16] LABS: Basophils % 0.2 %; Eosinophils % 0.9 %; Hematocrit 30.9 % (42.0-52.0); Lymphocytes # 0.6 10^3/uL (0.8-4.8); Lymphocytes % 13.2 %; Mean Corpuscular HGB Conc 32.4 g/dL (30.0-36.0); Mean Corpuscular Hemoglobin 30.9 pg (28.0-34.0); Mean Corpuscular Volume 95.4 fL (80-94); Mean Platelet Volume 10.3 fL (7.4-10.4); Monocytes # 0.4 10^3/uL (0.2-0.9); Monocytes % 9.5 %; Neutrophils # 3.3 10^3/uL (1.8-7.7); Neutrophils % 75.5 %; Nucleated Red Blood Cells % 0 %; Platelet Count 206 10^3/cmm (130-400); Red Blood Count 3.24 10^6/uL (4.1-5.3); Red Cell Distribution Width 16.8 % (12.1-15.1); White Blood Count 4.3 10^3/uL (4.0-10.0)
[2020-01-20 20:44] LABS: Alanine Aminotransferase 34 U/L (0-41); Alkaline Phosphatase 97 IU/L (40-130); Anion Gap 12.1 (5-19); Aspartate Amino Transferase 25 U/L (0-40); Blood Urea Nitrogen 24 mg/dL (8-23); Calcium 9.8 mg/dL (8.5-10.5); Carbon Dioxide 27 mmol/L (22-29); Chloride 95 mmol/L (98-107); Globulin 3.8 g/dL (1.3-4.6); Glomerular Filtration Rate 134.4 mL/min (90-130); Glucose 87 mg/dL (65-115); NT Pro B Type Natriuretic Pept 1632 pg/mL (0-125); Potassium 4.1 mmol/L (3.5-5.1); Sodium 130 mmol/L (136-145); Total Bilirubin 0.6 mg/dL (0.15-1.2); Total Protein 6.8 g/dL (6.6-8.7)
[2020-01-20 21:17] VITALS: RESP 11; O2SAT 97
[2020-01-20] MEDS: morphine 4 mg/mL SDV 1 mL IVP (21:17)
[2020-01-20 21:23] VITALS: RESP 10; O2SAT 98
[2020-01-20 21:23] LABS: Magnesium 1.8 mg/dL (1.7-2.3)
[2020-01-20] MEDS: FUROsemide 10 mg/mL SDV 2mL 20 MG IVP (21:29)
[2020-01-20 23:32] VITALS: BP 132/77; PULSE 68; RESP 18; O2SAT 98
[2020-01-20 23:51] VITALS: BP 119/56; PULSE 64; RESP 14; TEMP 36.8; O2SAT 98
[2020-01-21] VITALS (60 sets, daily range): BP systolic 81–121; BP diastolic 50–68; PULSE 59–143; RESP 4–28; TEMP 36.6–36.8; O2SAT 92–95
--- NOTE | 2020-01-21 00:53 | PC.NURSE ---
PT CAME TO ROOM 112-2 FROM ED. PT HAS BILATERAL 2+ PITTING EDEMA WITH THE RIGHT LEG BEING LARGER THAN THE LEFT. PT CAME WITH A CARDIZEM GTTS, BUT IT WAS NOT GOING. WHEN PT WAS HOOKED UP TO THE MONITOR. PT WAS IN NSR AT A RATE OF 64. CARDIZEM WASN'T RESTARTED. APPLICATION SYSTEMS ENGINEER NURSE ACCESSED PT'S PORT USING STERILE TECHNIQUE. PT V/S BP 119/56, HR 60, RR 12, SPO2 96%, T 98.2. THERE IS BRUISING AROUND THE RIGHT FOOT TOES THAT THE PT SAID CAME FROM WORKING ON THEIR SINK AT HOME. PT STATES THAT THEY MUST HAVE BROKEN SOME BLOOD VESSELS. PT ALSO STATED THAT BILATERAL LOWER EXTREMITIES ARE VERY SENSITIVE TO TOUCH. PT C/O 5/10 PAIN IN BLE. WILL CONTINUE TO MONITOR.
--- NOTE | 2020-01-21 02:37 | PC.NURSE ---
SALES ENGINEER ENGINEERED PRODUCTS NURSE STARTED CARDIZEM GTT AT 5ML/HR D/T PT HR JUMPING UP TO 146. DR SAGE WAS NOTIFIED.
--- NOTE | 2020-01-21 02:50 | USCV_ITS ---
Chaitanya Underwood Age: 69 Gender: M : 1950 Exam Date: 01/21/2020 08:05 Ordering Phys: Ludmila Hackett MD Technologist: Shannan Hilario Exam Location: [facility] – [place] Indication: SOB AND EDEMA BP: 104 / 68 HR: 58 Rhythm: Sinus Technical Quality: Adequate MEASUREMENTS (Male / Female) Normal Values 2D ECHO LV Diastolic Diameter PLAX 3.7 cm 4.2 - 5.9 / 3.9 - 5.3 cm LV Systolic Diameter PLAX 2.6 cm LV Chamber Size 4.1 cm IVS Diastolic Thickness 0.9 cm 0.6 - 1.0 / 0.6 - 0.9 cm IVS Systolic Thickness 2.0 cm LVPW Diastolic Thickness 1.5 cm 0.6 - 1.0 / 0.6 - 0.9 cm LVPW Systolic Thickness 1.6 cm RV Chamber Size 3.5 cm LVOT Diameter 2.1 cm LV Ejection Fraction 2D Teich 58.4 % LV Ejection Fraction MOD 2C 50.4 % LV Ejection Fraction 2C AL 46.1 % LA Diameter 4.0 cm LA Width 3.6 cm LA Height 6.3 cm RA Width 3.6 cm RA Height 4.6 cm Aorta at Sinotubular Diameter 2.9 cm M-MODE LV Diastolic Diameter MM 4.9 cm 4.2 - 5.9 / 3.9 - 5.3 cm LV Systolic Diameter MM 3.2 cm LV Ejection Fraction MM Teich 63.3 % IVS Diastolic Thickness MM 1.3 cm 0.6 - 1.0 / 0.6 - 0.9 cm IVS Systolic Thickness MM 1.8 cm LVPW Diastolic Thickness MM 1.3 cm 0.6 - 1.0 / 0.6 - 0.9 cm LVPW Systolic Thickness MM 1.8 cm RV Diastolic Diameter MM 2.5 cm Aortic Annulus Diameter 3.6 cm LA Ao Ratio MM 1.1 MV E Point Septal Separation 0.1 cm DOPPLER AV Peak Velocity 122.0 cm/s LVOT Peak Velocity 59.0 cm/s AV Area Cont Eq vti 1.9 cm squared AV Area Cont Eq pk 1.6 cm squared MV Area PHT 3.6 cm squared Mitral E to A Ratio 1.4 MV E' Velocity 16.0 cm/s Mitral E to MV E' Ratio 5.0 Mitral E to LV E' Lateral Ratio 4.9 Mitral E to LV E' Septal Ratio 5.2 TR Peak Velocity 276.0 cm/s TR Peak Gradient 30.5 mmHg TR Mean Velocity 219.4 cm/s TR Mean Gradient 20.4 mmHg TR Velocity Time Integral 67.6 cm TV Peak E Velocity 70.0 cm/s Right Atrial Pressure 3.0 mmHg Pulmonary Artery Systolic Pressu 33.5 mmHg PV Peak Velocity 47.0 cm/s RV Acceleration Time 0.1 s RV Ejection Time 0.3 s RV AcT/ET 0.4 FINDINGS Left Ventricle Normal left ventricular cavity size and systolic function. Left ventricular ejection fraction is estimated at 60 %. No diagnostic regional wall motion abnormality. Normal diastolic function. Right Ventricle Probably mildly increased right ventricular size and normal systolic function. Right ventricular systolic pressure 38 mmHg. Right Atrium Normal right atrial size. Right atrial pressure estimated at 8 mmHg. Left Atrium Left atrium not well visualized. Mitral Valve Thickened mitral valve. Trace mitral valve regurgitation. Aortic Valve Mildly thickened trileaflet aortic valve. No aortic valve stenosis. Tricuspid Valve Structurally normal tricuspid valve. Mild tricuspid valve regurgitation. Pulmonic Valve Structurally normal pulmonic valve. No pulmonary valve stenosis. Trace pulmonary valve regurgitation. Pericardium No pericardial effusion. Aorta Aorta not well visualized. CONCLUSIONS 1. Normal left ventricular cavity size and systolic function. Left ventricular ejection fraction is estimated at 60 %. No diagnostic regional wall motion abnormality. 2. Right atrial pressure estimated at 8 mmHg. 3. Pulmonary artery pressure estimated at 38 mmHg. 4. Mild tricuspid valve regurgitation. 5. When compared to previous echocardiogram dated 01/14/2016, diastolic function seems to have improved. Lidia Kenny MD (Electronically Signed) Final Date: 21 January 2020 18:34 S
--- NOTE | 2020-01-21 03:11 | PC.NURSE ---
DOOR FRAME BUILDER NURSE INCREASED CARDIZEM TO 10ML/HR.
--- NOTE | 2020-01-21 03:13 | PC.NURSE ---
Increased Cardizem gtt to 10 cc/hour related to heart rate @ 144
[2020-01-21] MEDS: morphine IR 15 mg Tablet 30 MG PO ×3 (03:21→18:02)
--- NOTE | 2020-01-21 05:16 | PC.NURSE ---
Increased Cardizem drip to 15 cc/hour, heart rate 144
--- NOTE | 2020-01-21 05:56 | PC.NURSE ---
CARTOGRAPHY SUPERVISOR NURSE INCREASED CARDIZEM GTT TO 15ML/HR FOR HR 142. PT HAS 0 C/O CHEST PAIN AT THIS TIME. WILL CONTINUE TO MONITOR.
--- NOTE | 2020-01-21 06:58 | P.HP_ITS ---
Providers/Chief Complaint Admitting Physician: Ludmila Hackett MD Primary Care Provider: Fernando Guerrero MD Chief Complaint: sob History of Present Illness Chaitanya Underwood is a 69 year old male who presented to the emergency room with increasing difficulty breathing as well as increasing lower extremity edema. This is been developing over the last couple of weeks. He tries to stay active but has not been able to do as much as he usually does because of the shortness of breath. He had been on steroids in the form of prednisone for many years because of rheumatoid arthritis and was switched to dexamethasone during the course of his treatment for lung cancer. Because of the increasing lower extremity edema the steroids were decreased in dose and ultimately stopped. Dr. Sheth, his environmental emergencies assistant, is aware that he is not on any steroids at the moment. Despite not being on the steroids anymore, he has not had any relief from the edema. He admits that he does not elevate his legs very much. He has chronic problems with pain in his back and cannot lie down in a bed. He does not always elevate his feet when he does sleep in a recliner. He has chronic pain in his legs that is also gotten worse as the degree of swelling has worsened. He has not been on any diuretics. He does not carry a diagnosis of CHF though does have a history of atrial flutter. He is chronically on anticoagulation for this. No known history of coronary artery disease but again he does have rheumatoid arthritis. Review of Systems Const: Reports: change in weight, fatigue, malaise and night sweats; Denies: fever, chills or change in appetite Eyes: Denies: change in vision ENMT: Denies: throat pain Card: Reports: palpitations, edema, swelling of feet/ankles, shortness of breath on exertion and shortness of breath when lying down; Denies: chest pain Resp: Reports: shortness of breath, productive cough and non-productive cough; Denies: pain on inspiration or coughing up blood GI: Denies: abdominal pain, nausea, vomiting or change in bowel habits Musc: Reports: back pain, extremity pain, joint pain and muscle weakness; Denies: redness or joint warmth Skin/Breast: Denies: rash Neuro: Reports: numbness in extremities (Left more so than right chronically) and weakness in extremities (Left more so than right chronically); Denies: headache Endo: Denies: excessive urination Jasmeet/Lymph: Denies: easy bruising or easy bleeding Medications/Allergies Allergies Allergy/AdvReac Type Severity Reaction Status Date / Time donepezil [From Aricept] AdvReac Intermediate DIARRHEA Verified 12/29/19 13:36 Additional Medication Information Additional Medication Information: Home Medications Medication Instructions Recorded Confirmed Type FOLIC ACID 1 cap PO DAILY 12/29/19 01/20/20 History apixaban 2.5 mg tablet 2.5 mg PO BID 12/29/19 01/20/20 History aspirin 81 mg tablet,delayed 81 mg PO DAILY 12/29/19 01/20/20 History release diltiazem HCl 60 mg 60 mg PO BID 12/29/19 01/20/20 History capsule,extended release 12 hr irbesartan 75 mg tablet 75 mg PO DAILY 12/29/19 01/20/20 History metoprolol tartrate 50 mg tablet 50 mg PO BID 12/29/19 01/20/20 History morphine 30 mg capsule,extended 30 mg PO Q24H 12/29/19 01/20/20 History release 24 hr multiphase morphine 30 mg immediate release 30 mg PO Q6H PRN 12/29/19 01/20/20 History tablet oxycodone-acetaminophen 5 mg-325 1 tab PO Q6H PRN 12/29/19 01/20/20 History mg tablet pantoprazole 40 mg tablet,delayed 40 mg PO DAILY 12/29/19 01/20/20 History release prednisone 5 mg tablet 5 mg PO DAILY PRN 12/29/19 01/20/20 History PFSH Acute PFSH: Medical History Atrial flutter Chronic anticoagulation Eliquis History of post-polio syndrome Left lower extremity chronically smaller than right lower extremity Immunosuppression Methotrexate and prednisone for rheumatoid arthritis 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 Has completed chemotherapy. Immunotherapy has been stopped. Has received palliative radiation to the spine. Seropositive rheumatoid arthritis of multiple joints Surgical History History of discectomy L5 History of left knee surgery History of partial colectomy History of repair of right rotator cuff Status post left foot surgery Hammertoe Family History Other Cancer Lung disease Social History Smoking and tobacco status: never smoked Quit status (tobacco): has quit using tobacco Year quit tobacco: 2108 Lives independently: Yes Household members: spouse Marital status: History of recent travel: No Vitals/I&O/Wt Last Vital Signs Temp 98 F 01/21/20 06:06 Pulse 94 01/21/20 06:06 Resp 21 H 01/21/20 06:06 BP 104/68 01/21/20 06:06 Pulse Ox 95 01/21/20 06:06 01/20/20 01/20/20 01/21/20 14:59 22:59 06:59 Intake Total 145.583 / 145.583 Output Total 350 / 350 Balance -204.417 / -204.417 Weight last 48 hrs Weight 68.039 kg Physical Exam Const: COMMON NORMALS: oriented x3 and alert HENMT: HEAD & SCALP: normocephalic and atraumatic Eye: COMMON NORMALS: PERRL and EOMs intact bilaterally Neck/C-Spine: COMMON NORMALS: supple Resp: COMMON NORMALS: normal respiratory effort and no use of accessory muscles AUSCULTATION: rales bilateral at the base Cardio: COMMON NORMALS: regular rate, no gallops, no murmurs and no rub GI: COMMON NORMALS: soft to palpation and non-tender AUSCULTATION: Yes normoactive bowel sounds Back/Pelvis: THORACIC SPINE/UPPER BACK: Yes pain with ROM LUMBAR SPINE /LOWER BACK: Yes pain with ROM Extremity: NARRATIVE EXTREMITY EXAM: Left lower extremity is atrophied compared to right lower extremity. Both extremities have 3+ pitting edema. More marked on the right than the left even beyond the comparison for the baseline atrophy. Patient has prominent MCPs on both hands left more so than right. No acute synovitis is noted. Both lower extremities are tender to touch in the areas of the swelling. Neuro: COMMON NORMALS: moves all extremities Psych: COMMON NORMALS: thought process normal and cooperative Skin: NARRATIVE SKIN EXAM: Hyperpigmented chronic changes noted to sun exposed areas. On the lower extremities he has some stretch mccarty from the degree of edema noted. There is an area of hyperpigmentation and dry skin above the medial malleolus on the right but it is not warm to touch. Data : 01/20/20 20:08 01/20/20 20:08 A&P Assessment and plan (1) Dyspnea on exertion: Suspect multifactorial, related to lung cancer, impact of increasing pain in his back on breathing plus or minus some pulmonary hypertension/cor pulmonale/CHF. No significant wheezes currently but does have some bibasilar Rales. Status: Acute Code(s): R06.09 - Other forms of dyspnea (2) Lower extremity edema: Patient is slightly hypoproteinemic which is a developing issue for him but his albumin is only down to 3 currently. It certainly can account for some of the edema that we are seeing. I think it is probably exacerbated by some venous insufficiency and the fact that he does not really ever elevate his legs due to his back discomfort. He is chronically on anticoagulation in the form of Eliquis for atrial flutter so blood clot is less likely but still within the differential. No indication of lymphatic obstruction on exam but would be difficult to tell fully. Status: Acute Code(s): R60.0 - Localized edema (3) Atrial flutter: With rapid ventricular response. I suspect some part related to progressive shortness of breath. It is possible that lack of rate control for a flutter is contributing to the symptoms he has been having as well. Status: Chronic Qualifiers: Atrial flutter type: typical Qualified Code(s): I48.3 - Typical atrial flutter Code(s): I48.92 - Unspecified atrial flutter (4) Chronic anticoagulation: With Eliquis Status: Chronic Code(s): Z79.01 - oysterman (current) use of anticoagulants (5) Primary squamous cell carcinoma of right lung: With metastases to the spine. Has completed chemotherapy. Immunotherapy has been stopped due to symptoms. Has received palliative radiation to the spine. Status: Chronic Code(s): C34.91 - Malignant neoplasm of unspecified part of right bronchus or lung (6) Seropositive rheumatoid arthritis of multiple joints: Not currently on prednisone though has been on it chronically. Methotrexate has been held for radiation therapy but has been resumed. Takes folate regularly. Status: Chronic Code(s): M05.79 - Rheumatoid arthritis with rheumatoid factor of multiple sites without organ or systems involvement Additional A&P Information Inpatient admission Telemetry monitoring Continue Cardizem drip currently as patient does achieve good rate control with this. Probably need to look at increasing his chronic Cardizem dosing. We will continue metoprolol. Check echocardiogram Continue daily Lasix for now and monitor response to treatment Continue ARB Monitor renal function with diuresis CLAUDY hose Venous Dopplers of the legs Continue Eliquis which is a home medication Elevate lower extremities which I discussed with the patient Low threshold for stress dose steroids in this patient who has recently come off of them Continue usual pain medications for rheumatoid arthritis PT evaluation Supportive care otherwise Full code Plans discussed with patient and he was given an opportunity to ask questions. Attestations Medical Necessity Statement*: Anticipated stay greater than 2 midnights in a patient with significant lower extremity edema and increasing dyspnea and comorbid conditions as noted above. Attempts to address this on an outpatient basis have been unsuccessful thus far. Plans are as indicated. Coding Level of Care Code Acute Wall Insulation Sprayer for Antoine Granados Diagnoses Dyspnea on exertion R06.09 Lower extremity edema R60.0 Atrial flutter I48.3 Atrial flutter type: typical Chronic anticoagulation Z79.01 Primary squamous cell carcinoma of right lung C34.91 Seropositive rheumatoid arthritis of multiple joints M05.79
--- NOTE | 2020-01-21 07:50 | USCV_ITS ---
Chaitanya Underwood Age: 69 Gender: M : 1950 Exam Date: 01/21/2020 08:29 Ordering Phys: Ludmila Hackett MD Technologist: Shannan Hilario Exam Location: [facility] [place] Indication: SWOLLEN LEGS HISTORY: Bilateral leg swelling PROCEDURES: The venous duplex Doppler examination of both lower extremities was performed in the standard fashion. The following venous structures were evaluated: common femoral vein, profunda vein, proximal portion of the greater saphenous vein, superficial femoral vein, and the popliteal vein. In addition, the posterior tibial and peroneal trunk were evaluated. Serial compression, augmentation maneuvers, and spectral Doppler flow evaluation were performed. FINDINGS: Edema noted lower legs. Normal 2-D Doppler and augmentation and compressibility throughout the lower extremity venous structures. Additional imaging through the proximal calf veins also reveals no thrombus. Limited evaluation of the greater saphenous vein is patent with no thrombus. CONCLUSIONS No DVT bilateral lower extremities. Bilateral subcutaneous lower extremity edema noted. Dr. Caitlin Gonzales DO (Electronically Signed) Final Date: 21 January 2020 14:16 S
[2020-01-21] MEDS: losartan 50 mg Tablet 25 MG PO (09:37)
[2020-01-21] MEDS: FUROsemide 10 mg/mL SDV 4mL 20 MG IVP (09:37)
[2020-01-21] MEDS: aspirin 81 mg EC Tablet PO (09:37)
[2020-01-21] MEDS: pantoprazole DR 40 mg Tablet PO (09:37)
[2020-01-21] MEDS: apixaban 5 mg Tablet 2.5 MG PO ×2 (09:37→17:59)
[2020-01-21] MEDS: folic acid 1 mg Tablet 2 MG PO (09:37)
[2020-01-21] MEDS: metoprolol tartrate 50 mg Tablet PO ×2 (09:38→18:00)
[2020-01-21] MEDS: sennosides-docusate Tablet 1 TAB PO ×2 (09:38→18:00)
--- NOTE | 2020-01-21 10:37 | PM.PN ---
Subjective Subjective: Interval history: History and physical was reviewed. Patient reports he is feeling pretty good currently. He reports he cannot usually tell when he is in atrial fibrillation flutter. He reports he does have some calf tenderness on the right. Relates skin seems to hurt there as well. Medications: Reviewed: Yes Vitals/I&O/Wt Last Vital Signs Temp 98 F 01/21/20 06:06 Pulse 143 H 01/21/20 09:35 Resp 18 01/21/20 09:36 BP 104/68 01/21/20 09:37 Pulse Ox 95 01/21/20 06:06 01/20/20 01/21/20 01/21/20 22:59 06:59 14:59 Intake Total 145.583 / 145.583 42.75 / 42.75 Output Total 350 / 350 300 / 300 Balance -204.417 / -204.417 -257.25 / -257.25 Weight last 48 hrs Weight 68.039 kg Physical Exam Narrative: EXAM NARRATIVE: General exam is no apparent distress Cardiovascular regular rate and rhythm without murmur. Telemetry indicates sinus rhythm currently Lungs are clear but with diminished breath sounds at the bases Abdomen is soft with positive bowel sounds Extremities 1+ edema bilaterally right greater than left. Data : 01/20/20 20:08 01/20/20 20:08 A&P Assessment and plan (1) Dyspnea on exertion: Suspect multifactorial, related to lung cancer, impact of increasing pain in his back on breathing plus or minus some pulmonary hypertension/cor pulmonale/CHF. No significant wheezes currently but does have some bibasilar Rales. Overall he feels improved. A. fib with RVR could have contributed. He is back in this rhythm currently. Continue low-dose Lasix Status: Acute Code(s): R06.09 - Other forms of dyspnea (2) Lower extremity edema: Likely venous stasis. Await venous duplex to rule out DVT Could be some element of acute diastolic heart failure secondary to his atrial fibrillation/flutter. He could have had lack of control for quite some time. Status: Acute Code(s): R60.0 - Localized edema (3) Atrial flutter: Was in sinus rhythm earlier. After diltiazem drip was discontinued and he got his oral diltiazem his atrial fibrillation/flutter has recurred. Digoxin 500 mcg IV x1. 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 Has completed chemotherapy. Immunotherapy has been stopped due to symptoms. Has received palliative radiation to the spine. Status: Chronic Code(s): C34.91 - Malignant neoplasm of unspecified part of right bronchus or lung (6) Seropositive rheumatoid arthritis of multiple joints: Not currently on prednisone though has been on it chronically. Methotrexate has been held for radiation therapy but has been resumed. Takes folate regularly. Status: Chronic Code(s): M05.79 - Rheumatoid arthritis with rheumatoid factor of multiple sites without organ or systems involvement Additional A&P Information Rheumatoid arthritis, continue pain medications Continue physical therapy Full code Eliquis will suffice for DVT prophylaxis Attestations Medical Necessity Statement*: Needs continued hospitalization, for adjustment of medications for atrial flutter/fibrillation with rapid ventricular rate. Coding Level of Care Code Acute Milk Drying Machine Operator for Antoine Granados Diagnoses Dyspnea on exertion R06.09 Lower extremity edema R60.0 Atrial flutter I48.3 Atrial flutter type: typical Chronic anticoagulation Z79.01 Primary squamous cell carcinoma of right lung C34.91 Seropositive rheumatoid arthritis of multiple joints M05.79
[2020-01-21] MEDS: digoxin 250 mcg/ml INJ 2 mL 500 MCG IVP (10:51)
--- NOTE | 2020-01-21 12:44 | PC.CHAP ---
Pastoral Care Encounter/Spiritual Assessment Type of Contact [] Declined lead care manager visit [] Patient/Family/Request visit [] Outpatient visit [] Follow-up visit [] Physician referral [] Code/Alert [x] Routine visit [] Staff referral [] Actively dying [] Patient sleeping [] Family support [] [] Out of room [] Palliative care [] [] Receiving care in room [] Pre-surgical visit [] Trauma [] Long length of stay [] ICU visit [] Other: Relational/Emotional Strength [x] Patient feels connected with others/family/visitors/staff [] Distress [] Loneliness/isolation [] Abandonment Spirituality of Patient [x] Person of Soo [] Attends Church of their Soo [x] Believes in Prayer [] Reads Bible or Yazidism materials [] There are Spiritual issues to be addressed Office Machine Installer Interventions [x] Prayer [x] Active listening [x] Non-anxious presence [x] Spiritual/emotional support [] Crisis/trauma care [x] Spiritual counseling [] Bereavement support [] Provided bereavement packet [] Provided Bible/devotional materials [] Provided toy/stuffed animal, coloring book to patient or family member [] Provided Communion [] Anointing/[place] [] Salvation [] Completed spiritual assessment [] Other: Impact on Illness or Injury [] Angry [] Fearful [] Anxious [] Often cries [] Exhaustion [] Unable to work [] Unable to attend jew [] Unable to walk/stand [] Unable to read [] Unable to drive [] Unable to eat/drink [] Unable to sleep [] Unable to be with family [] Patient intubated [x] Other: n/a Summary Time spent with patient 3-minutes
[2020-01-21] MEDS: digoxin 250 mcg/ml INJ 2 mL IVP (18:01)
[2020-01-21] MEDS: morphine ER (12 HR) 30 mg tablet PO (18:05)
[2020-01-22] VITALS: BP 130/52; PULSE 66; RESP 20; TEMP 36.8; O2SAT 90
[2020-01-22 02:37] VITALS: RESP 22; O2SAT 96
[2020-01-22] MEDS: morphine IR 15 mg Tablet 30 MG PO (02:37)
[2020-01-22 03:47] LABS: Eosinophils % 0.7 %; Hematocrit 27.7 % (42.0-52.0); Hemoglobin 9.2 g/dL (11.7-16.6); Lymphocytes # 0.7 10^3/uL (0.8-4.8); Lymphocytes % 16.2 %; Mean Corpuscular HGB Conc 33.2 g/dL (30.0-36.0); Mean Corpuscular Hemoglobin 31.7 pg (28.0-34.0); Mean Corpuscular Volume 95.5 fL (80-94); Mean Platelet Volume 10.1 fL (7.4-10.4); Monocytes # 0.5 10^3/uL (0.2-0.9); Monocytes % 11.8 %; Neutrophils # 3.1 10^3/uL (1.8-7.7); Neutrophils % 70.8 %; Nucleated Red Blood Cells % 0 %; Platelet Count 204 10^3/cmm (130-400); Red Cell Distribution Width 16.5 % (12.1-15.1); White Blood Count 4.3 10^3/uL (4.0-10.0)
[2020-01-22 04:00] VITALS: BP 128/53; PULSE 66; RESP 15; TEMP 36.8; O2SAT 91
[2020-01-22 04:05] LABS: Blood Urea Nitrogen 12 mg/dL (8-23); Calcium 9.1 mg/dL (8.5-10.5); Carbon Dioxide 27 mmol/L (22-29); Chloride 97 mmol/L (98-107); Glomerular Filtration Rate 134.4 mL/min (90-130); Glucose 94 mg/dL (65-115); Magnesium 1.6 mg/dL (1.7-2.3); Osmolality Calculated 270 mOsm/kg (285-295); Sodium 132 mmol/L (136-145)
[2020-01-22 05:38] VITALS: BMI 22.1
[2020-01-22 08:00] VITALS: BP 128/56; PULSE 66; RESP 17; TEMP 36.7; O2SAT 93
[2020-01-22] MEDS: FUROsemide 10 mg/mL SDV 4mL 20 MG IVP (09:05)
[2020-01-22 09:06] VITALS: BP 128/56; PULSE 64
[2020-01-22] MEDS: apixaban 5 mg Tablet 2.5 MG PO (09:06)
[2020-01-22] MEDS: losartan 50 mg Tablet 25 MG PO (09:06)
[2020-01-22] MEDS: pantoprazole DR 40 mg Tablet PO (09:06)
[2020-01-22] MEDS: aspirin 81 mg EC Tablet PO (09:06)
[2020-01-22] MEDS: digoxin 125 mcg Tablet PO (09:06)
[2020-01-22] MEDS: sennosides-docusate Tablet 1 TAB PO (09:06)
[2020-01-22] MEDS: metoprolol tartrate 50 mg Tablet PO (09:07)
[2020-01-22] MEDS: folic acid 1 mg Tablet 2 MG PO (09:07)
--- NOTE | 2020-01-22 11:17 | PM.DCS ---
Discharge Providers Date of Admission: 01/20/20 22:48 Date of Discharge: January 22, 2020 Attending Provider at Admission: Ludmila Hackett MD Attending Provider at Discharge: Ross Handley MD Primary Care Provider: Fernando Guerrero MD Diagnoses at Discharge Discharge Diagnosis (1) Dyspnea on exertion: Status: Acute Problem details: Resolved (2) Lower extremity edema: Status: Acute Problem details: Resolved. Discharged on Lasix (3) Atrial flutter: Status: Chronic Problem details: Rate uncontrolled. With addition of digoxin rate is now controlled. Qualifiers: Atrial flutter type: typical Qualified Code(s): I48.3 - Typical atrial flutter (4) Chronic anticoagulation: Status: Chronic Problem details: Eliquis (5) Primary squamous cell carcinoma of right lung: Status: Chronic Problem details: With metastases to the spine. Has completed chemotherapy. Immunotherapy has been stopped. Has received palliative radiation to the spine. (6) Seropositive rheumatoid arthritis of multiple joints: Status: Chronic Reason for Visit Reason for Visit: Reason For Visit: sob Hospital Course Discharge Summary: Chaitanya presented to the hospital short of breath, with lower extremity swelling. He was noted to be in atrial fibrillation with rapid ventricular rate. He was placed in the hospital and diuresis initiated. Cardizem was started for his atrial fibrillation/flutter. With IV Cardizem his rate became under better control. With restart of his home medicines he had recurrent of atrial fibrillation and digoxin was added. From that point forward rate was under good control and he subsequently converted to sinus rhythm. He had no evidence of significant bradycardia during this hospital stay. With diuresis his lower extremities improved dramatically. Lower extremity venous duplex demonstrated no V DVT. Echocardiogram demonstrated EF of 60%, pulmonary artery pressure of 38. By January 22 he was doing much better and it was thought he could be discharged home. At that time he was on room air, with a heart rate of 64 and no dizziness with ambulation. Physical Exam Narrative: EXAM NARRATIVE: General exam is no apparent distress Cardiovascular regular rate and rhythm without murmur Lungs clear Abdomen is soft with positive bowel sounds Extremities no cyanosis clubbing or edema Discharge Data Data Completed and Pending: Completed Studies During Hospitalization Category Date Time Status XR chest 1V aleks ble [id number] Urgent Exams 01/20/20 20:00 Completed CV echo complete* [id number] Routine Ultrasound 01/21/20 02:50 [place] [id number] Routin e Ultrasound 01/21/20 07:50 Completed Labs from last 24 hours 01/22/20 01/22/20 03:25 03:25 WBC 4.3 RBC 2.90 L Hgb 9.2 L Hct 27.7 L MCV 95.5 H MCH 31.7 MCHC 33.2 RDW 16.5 H Plt Count 204 MPV 10.1 Neut % (Auto) 70.8 Lymph % (Auto) 16.2 [place] % (Auto) 11.8 Eos % (Auto) 0.7 Baso % (Auto) 0.0 Neut # (Auto) 3.1 Lymph # (Auto) 0.7 L [place] # (Auto) 0.5 Eos # (Auto) 0.0 Baso # (Auto) 0.0 Nucleated RBC % (a uto) 0 Nucleated RBCs # 0.0 Sodium 132 L Potassium 4.0 Chloride 97 L Carbon Dioxide 27 Anion Gap 12.0 BUN 12 Creatinine 0.6 L GFR Calculation 134.4 H Glucose 94 Calculated Osmolal ity 270 L Calcium 9.1 Magnesium 1.6 L Vitals: Last Vital Signs Temp 98.1 F 01/22/20 08:00 Pulse 64 01/22/20 09:06 Resp 17 01/22/20 08:00 BP 128/56 01/22/20 09:06 Pulse Ox 93 01/22/20 08:00 Discharge Plan Discharge Patient Disposition: Home, Self-Care Condition: Stable Prescriptions: New potassium chloride 10 mEq Tablet Extended Release 10 meq PO DAILY Qty: 30 RF: 0 digoxin 125 mcg (0.125 mg) Tablet 125 mcg PO DAILY Qty: 30 RF: 0 furosemide [Lasix] 20 mg tablet 20 mg PO QAM Qty: 30 RF: 0 Continued irbesartan 75 mg tablet 75 mg PO DAILY RF: 0 diltiazem HCl 60 mg capsule,extended release 12 hr 60 mg PO BID RF: 0 metoprolol tartrate 50 mg tablet 50 mg PO BID RF: 0 Eliquis 2.5 mg tablet 2.5 mg PO BID RF: 0 pantoprazole 40 mg tablet,delayed release (DR/EC) 40 mg PO DAILY RF: 0 aspirin [Adult Aspirin Regimen] 81 mg tablet,delayed release (DR/EC) 81 mg PO DAILY RF: 0 FOLIC ACID 2,000 mg tablet 1 cap PO DAILY RF: 0 prednisone 5 mg tablet 5 mg PO DAILY PRN (Reason: UNKNOWN) RF: 0 oxycodone-acetaminophen [Percocet] 5-325 mg tablet 1 tab PO Q6H PRN (Reason: Pain) RF: 0 morphine 30 mg capsule, ER multiphase 24 hr 30 mg PO Q24H RF: 0 morphine 30 mg tablet 30 mg PO Q6H PRN (Reason: Pain) RF: 0 Discharge Orders: Discharge Order (Routine); Ordered 01/22/20 Ordered By: Ross Handley Referrals: Armin Bardales MD [Physician] - 2 weeks (Follow-up atrial fibrillation, addition of digoxin. Digoxin level on follow-up) Fernando Guerrero MD [Primary Care Provider] - 4-7 days Discharge Diet: Cardiac Discharge Activity: Resume usual activity Activity Restrictions/Additional Instructions: Take medicine as prescribed Follow-up as instructed Weigh yourself daily, if over 3 pounds weight gain in 2 days call cardiology. Discharge Attestations Time Spent in Discharge Care*: greater than 30 min Quality Metrics Clinical Quality Measures During this hospital stay, did patient experience: None Coding Level of Care Code Acute Expenditure Requisition Clerk for Chg Fwd Diagnoses Dyspnea on exertion R06.09 Lower extremity edema R60.0 Atrial flutter I48.3 Atrial flutter type: typical Chronic anticoagulation Z79.01 Primary squamous cell carcinoma of right lung C34.91 Seropositive rheumatoid arthritis of multiple joints M05.79
[2020-01-22 12:38] VITALS: BP 128/56; PULSE 64
--- NOTE | 2020-01-22 17:04 | PC.RESP ---
Patient does not have a qualifying hx of lung disease at this time.
== END 2020-01-22 13:41 | disposition home or self-care (01) | DRG 309 ==
LOC: ER 20:00 → CSU 23:03
PROVIDERS: Admitting Provider Hospitalist; Emergency Provider Emergency Medicine; Family Provider Family Medicine; PCP Family Medicine; Visit Provider Internal Medicine
DX: I48.91 Unspecified atrial fibrillation (principal); C79.51 Secondary malignant neoplasm of bone; C34.91 Malignant neoplasm of unspecified part of right bronchus or lung; I48.92 Unspecified atrial flutter; Z88.8 Allergy status to other drugs, medicaments and biological substances; Z79.82 Long term (current) use of aspirin; Z79.891 Long term (current) use of opiate analgesic; Z79.899 Other long term (current) drug therapy; Z79.01 Long term (current) use of anticoagulants; M05.9 Rheumatoid arthritis with rheumatoid factor, unspecified; Z87.891 Personal history of nicotine dependence; I87.8 Other specified disorders of veins; R06.09 Other forms of dyspnea
CPT/HCPCS: 12345; 36415; 71045; 80048; 80053; 83735; 83880; 85025; 93005; 93306; 93970; 96375; 97110; 97161; 99282; J1160; J1642; J1940; J2270; J3490

== ENCOUNTER → 2020-02-09 12:09 | Outpatient (BNVA) | payer MEDICARE, OTHER, SELFPAY | PROVIDERS: Family Provider Family Medicine; PCP Family Medicine; Visit Provider Internal Medicine Rheumatology | DX: M05.79 Rheumatoid arthritis with rheumatoid factor of multiple sites without organ or systems involvement (principal); M19.90 Unspecified osteoarthritis, unspecified site; C34.11 Malignant neoplasm of upper lobe, right bronchus or lung; Z92.21 Personal history of antineoplastic chemotherapy; Z92.3 Personal history of irradiation; Z87.891 Personal history of nicotine dependence | CPT/HCPCS: 99214 ==

== ENCOUNTER 2020-02-23 06:34 | Outpatient (RCR) | payer MEDICARE, OTHER, SELFPAY ==
--- NOTE | 2020-02-08 13:13 | ONCRAD EPV_ITS ---
Radiation Oncology Established Patient Visit Patient: Raheem MR#: [id number] : 1950> Age: 69> Sex: Male> Dictated by: Dr. Tod Faria Date of Service: 02/08/2020 Referring Physician(s) : Fernando Guerrero M.D. Diagnosis: C79.51 - Secondary malignant neoplasm of bone, Diagnosed 12/21/2019 (Active) C34.11 - Malignant neoplasm of upper lobe, right bronchus or lung, Diagnosed 11/14/2018 (Active) Stage IIIB, T4, N3, M0 Radiotherapy to Date: Course: T SpineSBRT, Treatment Site: T spine SBRT, Ref. ID: [id number], Energy: 6X, Dose/Fx (cGy): 500, #Fx: 5 / 5, Dose Correction (cGy): 0, Total Dose (cGy): 2,500, Start Date: 12/30/2019, End Date: 01/08/2020, Elapsed Days: 9 Chief Complaint / History of Present Illness: Mr. Underwood returns for follow-up. He is a 69-year-old man with locally advanced lung cancer. He received combined chemotherapy and radiation. On subsequent imaging he was found to have local progression in the area of prior treatment. He was counseled on the risk of retreatment and agreed to proceed. From 12/30/2019 through 01/08/2020 he received 2500 cGy in 5 fractions. Early on his pain improved however, over the last couple of weeks he has noted worsening pain again. Mr. Underwood has discontinued long-acting morphine but continues to take immediate release morphine. He needs pain medication every 4-6 hours. He states if he goes as long as 8 hours that he has severe pain and it takes about an hour for the pain medication to start working. The pain is just above the mid thoracic spine and extends posterior and laterally around the right rib cage. Mr. Underwood has noted a distinct area of pain in the right lateral rib cage. This area of focally increased discomfort is within the distribution of the pain that seems to radiate around from the spine. He also has noted an intermittent pain in the left lumbar paraspinous area. That pain is very intermittent and is not a significant quality of life factor. Mr. Underwood is ambulatory. He has no peripheral neurologic symptoms suggesting spinal cord compression. He has had continuing weight loss and has a poor appetite. Mr. Underwood was hospitalized January 20 because of peripheral edema and some shortness of breath with exertion. He was found to have atrial flutter. With treatment he improved promptly. He currently denies dyspnea. He states the peripheral edema still occurs, but is less of a problem. Digoxin, furosemide, and potassium were added to his medication regimen. Current Medications: Aspirin, colace, decadron, dilTIAZem HCl, eliquis, folic Acid, ibuprofen, irbesartan, methotrexate, metoprolol Tartrate, miraLax, morphine Sulfate, morphine Sulfate, morphine Sulfate ER, oxycodone-Acetaminophen, oxycodone-Acetaminophen, pantoprazole Sodium, predniSONE. Allergies: Aricept. Current Complaints / Review of Systems: SAFETY AIDE: No complaint of headache, nausea, altered consciousness or blackouts. He has no peripheral neurologic symptoms. Ambulatory. Pulmonary: No troublesome cough, sputum production, hemoptysis, or dyspnea. ardiac mild peripheral edema. No complaint of chest pain or dyspnea. Musculoskeletal: See history of present illness.. Vital Signs: Performed on 02/08/2020 10:19 AM BMI - 20.793 kg/m2, Height - 69.00 in, Weight - 140.8 lbs, Temperature - 97.7 f, Pulse - 68, Respiration - 20, O2 Sat - 95 % (low), Pain - 6 and BP - 103/ 62 mm(hg)(/low). Physical Exam: General: Alert and oriented x 3. No acute distress. HEENT: Normocephalic, atraumatic. . NECK: Supple without supraclavicular or jugular lymphadenopathy. LUNGS: Clear to auscultation bilaterally without rales, rhonchi or wheeze. Breath sounds mildly decreased bilaterally. HEART: Regular rate and rhythm, normal S1 and S2 without murmur, gallop or rub. MUSCULOSKELETAL: The thoracic spine is tender just above the midlevel. The tenderness is easily reproducible with moderate intensity palpation. There is tenderness of the ribs adjacent to the spine on the right. No tenderness of the ribs on the left. Palpation around the rib cage reveals an area of tenderness in the mid lateral rib cage that is easily reproducible. The pain is moderate. The hint that the anterior right rib cage is nontender. No tenderness of the left rib cage noted at all. Palpation along the lumbar spine revealed no tenderness. No tenderness of the sacrum or upper posterior pelvis. In the left paraspinous area the patient had an area of mild to moderate tenderness.. ABDOMEN: Soft, nontender, nondistended without masses or organomegaly. Bowell sounds are prese Performance Status: 2 - Ambulatory/capable of all self-care, unable to perform any work activities. Up and about more than 50% of waking hours. (ECOG) Lab: None pending. Test performed on 12/09/2019 9:32 AM Manual Lymphocytes - 7.2 % (low), Test performed on 12/17/2019 9:05 AM RBC - 3.10 10 6/ul (low), HGB - 9.9 g/dl (low), HCT - 30.0 % (low), MCV - 96.8 fl (high), MPV - 10.9 fl (high), Lymphocytes - 0.6 10 3/ul (low), Sodium - 132 mmol/l (low), Chloride - 93 mmol/l (low), eGFR - 84.2 ml/min (low) and Glucose - 127 mg/dl (high). Pathology: Primary, c79.51 - secondary malignant neoplasm of bone, Diagnosed 12/21/2019 (active), Primary, c34.11 - malignant neoplasm of upper lobe, right bronchus or lung, Diagnosed 11/14/2018 (active) stage iiib, t4, n3, m0 and Secondary, z92.3 - personal history of irradiation, Diagnosed 01/30/2019 (active). Imaging: See HPI Impression: I discussed the situation with Mr. Underwood and his . I told him that it appears to me that his most troublesome pain is still coming from the thoracic spine area in the area where he has received previous treatment. I told him it is very unlikely that additional treatment could be given to this area. Since he does not have trouble some peripheral neurologic symptoms, I see no point in performing imaging of the spine at this time. I also discussed the area of focal pain in the right rib cage and the pain in the left lower paraspinous area. I told him if these pains are related to new metastases that it is unlikely that focal treatment to these areas would do anything to help his overall level of discomfort. Therefore I do not feel that new imaging would be beneficial in his overall evaluation at this time. Mr. Underwood has not seen Dr. Weiss for some time. I recommended that he see him to discuss whether systemic therapy is an option or not. The patient's is under the impression that it may not be, but we agree that a firm opinion needs to be rendered. Certainly if the patient goes downhill further, it will be much more difficult for him to tolerate any advised systemic therapy. At this time, we will not proceed with any new tests or imaging. He will see Dr. Weiss for evaluation for systemic therapy. I also advised that Mr. Underwood consider going back on the extended release morphine. I told him that may smooth out his pattern of pain and that he may receive relief more promptly when he takes the immediate release morphine and that the relief may be more enduring. Signed by: 02/08/2020 1:12:02 PM <<Signature on File>> Time spent with patient: CPT Code: CPT Code:
--- NOTE | 2020-02-24 15:34 | ONC FU_ITS ---
Dr. Weiss follow up note Patient: Chaitanya Underwood Unit #: [id number]: 1950 Dicatated By: Carmen Weiss M.D.Date of Visit:Feb 23, 2020 Onc Med Follow-up/Prog Note History of Present Illness: Mr. Underwood is a 69-year-old gentleman who developed right upper back pain including spasm and stiffness. The pain was also radiating to the right arm and axillary area. It was a progressive in nature. He was evaluated by his primary care physician and on 11/03/2018 he had x-ray of the thoracic spine which was suspicious for large mass right upper lobe. On 11/04/[address] scan of thoracic spine which showed no evidence of thoracic spine fracture, central canal or neuroforaminal stenosis or widening or destruction. Again there were reports of the right upper lobe mass abuts the posterior and medial upper lung pleural without evidence of rib or vertebral body destruction. Thoracic spine central canal and neuroforaminal metastatic disease not entirely excluded. On same day he had CT scan of chest done which showed right upper lobe apical segment centrally necrotic mass with irregular thickened wall. No evidence of chest wall invasion or extension into thoracic spine foramina or vertebral bodies.. Mass measures 6.7 x 7.3 x 7.7. Right middle lobe groundglass 4.9 mm nodule is identified. Right lower lobe lateral segment 5 mm noncalcified pulmonary nodule unchanged. Right hilar 2.3 x 1.5 x 1.8 x 1.8 cm necrotic appearing lymph node is also noted. No axillary, mediastinal or left hilar enlarged lymph node seen. Chronic emphysema and pulmonary artery enlargement also seen. Unchanged right middle and lower lobe subcentimeter nodules. 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 CT PET scan done on 12/13/2018 reported 8.2 x 7.7 x 8.9 right apex mass with central necrosis SUV 18.9. Right superior hilar lymph node with SUV 10.9 and additional mid right hilum and precarinal lymph node with SUV of 7.2. No left-sided lymphadenopathy or osseous or liver metastases. 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 Status post colonoscopy done in October 2018 #2 polyps of sigmoid colon removed otherwise unremarkable Mr Underwood has a 40+ year history of smoking now pipe smoker. Had a 20+ pound weight loss due to poor appetite. Rheumatoid arthritis and was on anti-RA medication. Which will be on hold during chemotherapy except low-dose prednisone on as-needed basis He was started on combined chemoradiation with weekly carboplatin and Taxol on 12/30/2018. This treatment plan was concluded combined chemoradiation on 01/30/2019 followed by consolidation therapy with 3 week carboplatin/Taxol on 02/19/2019 and 03/19/2019. He then started on maintenance therapy with immunotherapy durvalumab biweekly for 12 months on 05/01/2019. Patient was on low dose methotrexate and Humira for chronic arthritis, low-dose prednisone and ibuprofen as-needed basis for arthritis again Patient has history of atrial flutter for which he underwent ablation and now on low-dose anticoagulation with Eliquis 2.5 mg twice a day Follow-up CT scan of chest done on 03/20/2019 showed interval cavitation and slightly smaller right upper lobe neoplasm; postradiation changes and stable appearance right lower lobe 3-4 mm noncalcified pulmonary nodule, chronic emphysema; Decrease in the right hilar lymphadenopathy He does admit that he is having a flare of joint/muscle pain and swelling on the day after the durvalumab is administered. He states he is having significant pain in the last 4-5 days. He is using Tylenol and occasionally ibuprofen for the pain. His prednisone dose has not changed. He continues to take 5 mg twice a day. He states he sees Dr. Sheth He does continue with the methotrexate. He is not yet considered resuming the Humira as we have limited data of use with immunotherapy Follow-up CT PET scan done on 08/08/2019 showed marked interval improvement in the right upper lobe mass next Resolution of malignant right hilar and mediastinal lymph nodes and resolution of right cervical lymph node. Continues on durvalumab maintenance therapy. CT PET scan done on 10/24/2019 showed there is a minimal ongoing improvement in the right upper lobe mass now measures 6.6 x 5 cm with SUV of 10.7 and continues to demonstrate significant central necrosis and cavitation. He continues with immunotherapy. having more muscle and joint pain. He states it is been getting worse after each cycle and is now to the point to where he is almost measurable . He states the pain had been letting up between cycles but now does not. He states his pain is as bad today as it was the day after treatment. He has been trying oxycodone/APAP 5/325 mg and is not getting adequate relief. He states that he has had a history of left pleurisy and this pain hurts worse or as bad as a per se. He states his ball valving the left line and the right side chest wall. Was started on short-acting morphine Follow-up CT PET scan done on 12/05/2019 showed right upper lobe mass is minimally progressed in size at 7.7 x 4.9 cm but now has SUV of 17.2 up from 10.7 on previous study. Progression is most pronounced in the medial paravertebral portion of the mass. The central portion mass is entirely FDG negative indicating necrosis. Denies ongoing erosion of right fifth rib and a new lytic erosion of T5 vertebral body. complaining of progressive mid back pain not sufficiently controlled with short-acting morphine and otherwise no urine or stool incontinence, no lower extremity weakness. No fever or chills, no nausea or vomiting. Patient has history of chronic back pain in the past he has ' back surgery'for back pain. 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 There is no cord compression at this time. Additional enhancement without extension to the epidural space and the right T3-4 for a month. Necrotic right upper lobe neoplasm and adjacent pleural involvement. Involvement has progressed but overall neoplasm on the examination is probably not changed. Soft tissue tumor extends into prevertebral soft tissue space and extends posterior to the esophagus at the T3-5 levels.patient was referred to radiation oncology for evaluation For palliative radiation therapy which was considered and he finish palliative radiation therapy to this area on 01/08/2020 Came for follow-up, denies any specific complaint but persistent mid upper back pain more on certain position. Radiation therapy has helped him some but still requiring narcotics to control pain. Not using thoracic brace otherwise as per now he is forgetting things, and think his dementia is getting worse. No headaches or blurred vision or double vision, no fever or chills, no nausea or vomiting, no diarrhea constipation. Appetite is reasonable. Medications: Aspirin 1 Tablet (of 81 mg) Tablet Oral daily, Colace 1 (100 mg) Capsule Oral daily PRN, Digoxin 1 Tablet (of 125 mcg) Oral daily, DilTIAZem HCl 1 Tablet (of 60 mg) Oral b.i.d., Eliquis 1 Tablet (of 2.5 mg) Oral b.i.d., Folic Acid 1 Tablet (of 2000 mg) Oral daily, Furosemide 1 Tablet (of 20 mg) Oral daily, Irbesartan 1 Tablet (of 75 mg) Oral daily, methotrexate 1 mg Solution q 7 days, Metoprolol Tartrate 1 Tablet (of 50 mg) Oral b.i.d., MiraLax Pack Oral daily, Morphine Sulfate 1 - 2 Tablet (of 30 mg) Oral q 2 to 4 hours PRN, Morphine Sulfate ER 1 Tablet (of 30 mg) Tablet, controlled release Oral q 12 hours, Pantoprazole Sodium 1 Tablet (of 40 mg) Tablet, enteric coated Oral daily, PredniSONE 1 Tablet (of 5 mg) Oral daily PRN Allergies: Aricept Review of Systems: Constitutional - Appetite is fair and weight is stable. No fever, chills, hot flashes, night sweats. Energy level is fair, ENMT - No sinus congestion/drainage. No mouth sores. No sore throat or difficulty swallowing, Hematologic/Lymphatic - Pt reports easy bruising, Respiratory - Occasional shortness of breath. Positive for mild cough. No pleuritic pain or hemoptysis, Cardiovascular - No angina pain. No palpitations, Gastrointestinal - No nausea, no vomiting. No heartburn or acid reflux. No diarrhea. Mild constipation. No blood in the stool or black stools, Genitourinary (M) - No dysuria or hematuria. No urinary frequency. No urgency or incontinence, Musculoskeletal - Positive for pain, Neurologic - No headache or dizziness. Occasional numbness/tingling in hands and feet. Pt also continues to report what he believes is nerve pain in his back, Psychiatric - No anxiety/depression at this time, Positive for insomnia. Vital Signs: Performed on Feb 23, 2020 08:50 Height - 69.00 in Weight - 134.4 lbs (LOW) BSA - 1.74 sq.m BMI - 19.85 Temperature - 98.3 F (LOW) Pulse - 66 /min Respiration - 20 /min BP - 102/49 mm(hg) Pain - 6 Performance Status: 1 - No physically strenuous activity, but ambulatory and able to carry out light or sedentary work (e.g. office work, light house work). (ECOG) Physical Examination: ENMT - . No oral exudates, ulcers, masses, thrush or mucositis. Oropharynx clear. Tongue normal, Respiratory - Lungs are clear to auscultation without rhonchi or wheezing, Cardiovascular - Regular rate and rhythm of heart, Abdomen - Non-tender, non-distended, Good bowel sounds. No guarding or rebound tenderness. No pulsatile masses, Extremities - no edema. Lab/Imaging: Test performed on Dec 17, 2019 09:05 Sodium 132 mmol/L Potassium 4.0 mmol/L Chloride 93 mmol/L CO2 28 mmol/L Anion Gap 15.0 BUN 23 mg/dL Creatinine 0.9 mg/dL Cr Clearance (Est) 74.50 mL/min eGFR 84.2 mL/min Glucose 127 mg/dL Calcium 10.1 mg/Dl Protein, Total 6.6 g/dL Albumin 3.5 g/dL Globulin 3.1 g/dL Bilirubin, Total 0.4 mg/dL ALT (SGPT) 10 U/L AST (SGOT) 15 U/L Alkaline Phosphatase 80 IU/L WBC 8.0 10 3/uL RBC 3.10 10 6/uL HGB 9.9 g/dL HCT 30.0 % MCV 96.8 fL MCH 31.9 pg MCHC 33.0 g/dL RDW 14.6 % Platelet Count 210 10 3/cmm MPV 10.9 fL Neutrophils 6.4 10 3/uL Lymphocytes 0.6 10 3/uL Monocytes 0.8 10 3/uL Eosinophils 0.1 10 3/uL Basophils 0.0 10 3/uL Neutrophil % 79.7 % Lymphocyte % 8.0 % Monocyte % 10.5 % Eosinophil % 1.3 % Basophils % 0.1 % Test performed on Dec 09, 2019 09:32 Manual Lymphocytes 7.2 % Manual Monocytes 5.9 % Manual Eosinophils 0.4 % Manual Basophils 0.3 % NRBCs 0 /100 WBC Impression: Poorly differentiated squamous cell carcinoma of right upper lobe per CT-guided biopsy done on 11/14/2018 CT scan of chest done on 11/04/2018 showed right upper lobe mass 6.7 x 7.3 x 7.7 cm with right hilar 2.3 x 1.5 x 1.8 x 1.[address] scan of thoracic spine showed no evidence of thoracic spine fracture, or destruction or neuroforaminal stenosis. CT PET scan done on 12/13/2018 showed 8.2 x 7.7 x 8.9 cms mass right apex with central necrosis and SUV 18.9. T4 Right superior hilar lymph node with SUV 10.9 Additional mid right hilar and precarinal lymphadenopathy with SUV 7.2 No left sided lymphadenopathy or osseous liver metastases. A subcentimeter right cervical level IV lymph node FDG positive suspicious for metastatic disease N3 History of atrial flutter, being managed by cardiology Anemia, normocytic normochromic, due to chemotherapy MRI scan of the head done on 12/10/2018 showed no brain metastases Clinical stage IIIC Right upper back/axillary area pain due to right upper lobe malignancy Chronic emphysema/chronic smoking Weight loss History of colonic high-grade dysplastic polyps status post segmental resection with end-to-end anastomosis and recently done colonoscopy in October 2018 was unremarkable except 2 benign polyps were removed. Started on combined chemoradiation on 12/30/2018 with weekly carboplatin and Taxol Concluded on 01/30/2019 Along with SB RT to the cervical lymph node seen on CT PET scan Started on consolidation therapy with 3 weekly dose of carboplatin/Taxol on 02/19/2019 and finished 2 cycles of consolidation chemotherapy on 03/19/2019 as patient is high risk for recurrence of disease, as per NCCN guidelines, consolidation therapy with two cycle of chemotherapy followed by maintenance therapy with immunotherapy with durvalumab every 2 weeks for 12 months , may give him the best recurrence/progression free status, as literature has shown overall survival at 24 months was 66.3% for durvalumab versus 55.6% for placebo and progression free survival was 17.2 months for durvalumab versus 5.6 month with placebo and median time to or distant metastases was significant longer with durvalumab e.g 28.3 months versus 16.2 months with placebo Follow-up CT scan scan of chest done on 03/20/2019 showed interval cavitation and slightly smaller right upper lobe neoplasm. No interval rib destruction Interval right lateral mediastinal and tracheoesophageal groove fat induration at the level of the mass. Possible represent postradiation changes however tumoral infiltration not entirely excluded Stable appearance of right lower lobe 3-4 mm noncalcified pulmonary nodule Chronic emphysema Cold extremities, hypotension with mild bradycardia, blood pressure 92/39 pulse 60/m, probably medication induced patient is on CARMEN inhibitor, beta blockers and calcium channel beltran, discussed with Dr. Bardales training personnel supervisor on 05/14/2019 and will reduce his irbesartan dose to 75 mg by mouth daily from 150 mg by mouth daily. Decrease right hilar lymphadenopathy measuring up to 12 mm compared to 18 mm. Follow-up CT PET scan done on 08/08/2019 showed right upper lobe mass now measures 7.3 x 4.8 cm is significantly more necrotic and now demonstrates central cavitation with medial hypermetabolic segments of soft tissue demonstrating an SUV of 11.9. This is consistent with positive response to therapy. There has been resolution of right superior hilar, right mid hilum, pre-carinal and right cervical level IV lymph node. He did have follow-up PET/CT on 10/24/2019 which continues to report minimal improvement in the right upper lobe mass. At that time it measured 6.6 x 5 cm with an SUV of 10.7. There is continued evidence of significant central necrosis and cavitation. There were no other findings to indicate metastatic disease or osseous disease. Mr. Underwood has completed 15 cycles of the Imfinzi. He states that every cycle he is having significant pain but is worsening every time. He states that just about the time it is due to repeat the Imfinzi he is starting to get slight relief. However with this last cycle he has not gotten any relief at all between the cycles. He is requesting to stop the Imfinzi at least temporarily to see if this will help his symptoms. Plan: . Discussed with patient and regarding his disease status and further treatment options including observation or hospice care or palliative therapy. Patient said palliative radiation to his mid back did help him some but still has significant pain especially with certain position change. But no lower extremity weakness no urine or stool incontinence. We have a lengthy discussion regarding treatment options including hospice care patient and wants to discuss these options including palliative chemotherapy or hospice care or observation but there make decision after reviewing follow-up CT PET scan. So this point, was schedule him for CT PET scan to assess disease status and based that patient will make decision whether he wants to pursue palliative chemotherapy or hospice care.as far as persistent mid upper back pain is concern patient was advised to use thoracic brace while he is up and continue with his pain medication and refill if needed Return to clinic after CT PET scan. Signed By: Carmen Weiss M.D. <<Signature on File>>
== END 2020-02-23 23:59 | disposition home or self-care (01) ==
LOC: ONCMED 06:34
PROVIDERS: Family Provider Family Medicine; PCP Family Medicine; Visit Provider Internal Medicine Hematology & Oncology
DX: C34.11 Malignant neoplasm of upper lobe, right bronchus or lung (principal); C77.8 Secondary and unspecified malignant neoplasm of lymph nodes of multiple regions; C79.51 Secondary malignant neoplasm of bone; I48.92 Unspecified atrial flutter; G89.3 Neoplasm related pain (acute) (chronic); R60.0 Localized edema; J43.9 Emphysema, unspecified; M06.9 Rheumatoid arthritis, unspecified; Z79.82 Long term (current) use of aspirin; Z79.891 Long term (current) use of opiate analgesic; Z79.01 Long term (current) use of anticoagulants; Z79.52 Long term (current) use of systemic steroids; Z92.21 Personal history of antineoplastic chemotherapy; Z92.3 Personal history of irradiation; Z90.49 Acquired absence of other specified parts of digestive tract
CPT/HCPCS: 99214

== ENCOUNTER 2020-03-10 07:31 | Outpatient (RCR) | payer MEDICARE, OTHER, SELFPAY ==
[2020-03-09 17:09] LABS: Basophils % 0.4 %; Eosinophils # 0.2 10^3/uL (0.0-0.8); Eosinophils % 2.6 %; Hematocrit 29.7 % (42.0-52.0); Hemoglobin 8.9 g/dL (11.7-16.6); Lymphocytes # 1.3 10^3/uL (0.8-4.8); Lymphocytes % 17.9 %; Mean Corpuscular Hemoglobin 28.7 pg (28.0-34.0); Mean Corpuscular Volume 95.8 fL (80-94); Mean Platelet Volume 10.4 fL (7.4-10.4); Monocytes # 0.8 10^3/uL (0.2-0.9); Monocytes % 11.1 %; Neutrophils % 67.7 %; Nucleated Red Blood Cells % 0 %; Platelet Count 211 10^3/cmm (130-400); Red Cell Distribution Width 17.7 % (12.1-15.1); White Blood Count 7.3 10^3/uL (4.0-10.0)
[2020-03-09 18:39] LABS: Alanine Aminotransferase 7 U/L (0-41); Albumin Level 3.1 g/dL (3.5-5.2); Alkaline Phosphatase 79 IU/L (40-130); Anion Gap 14.5 (5-19); Aspartate Amino Transferase 10 U/L (0-40); Blood Urea Nitrogen 25 mg/dL (8-23); Calcium 9.8 mg/dL (8.5-10.5); Carbon Dioxide 29 mmol/L (22-29); Chloride 96 mmol/L (98-107); Globulin 3.6 g/dL (1.3-4.6); Glomerular Filtration Rate 96.4 mL/min (90-130); Glucose 107 mg/dL (65-115); Osmolality Calculated 277 mOsm/kg (285-295); Potassium 4.5 mmol/L (3.5-5.1); Sodium 135 mmol/L (136-145); Total Bilirubin 0.4 mg/dL (0.15-1.2); Total Protein 6.7 g/dL (6.6-8.7)
[2020-03-10] MEDS: denosumab 120 mg SDV SUBCUT (17:10)
--- NOTE | 2020-03-10 17:43 | ONC FU_ITS ---
Dr. Weiss follow up note Patient: Chaitanya Underwood Unit #: [id number]: 1950 Dicatated By: Carmen Weiss M.D.Date of Visit:Mar 10, 2020 Onc Med Follow-up/Prog Note History of Present Illness: Mr. Underwood is a 69-year-old gentleman who developed right upper back pain including spasm and stiffness. The pain was also radiating to the right arm and axillary area. It was a progressive in nature. He was evaluated by his primary care physician and on 11/03/2018 he had x-ray of the thoracic spine which was suspicious for large mass right upper lobe. On 11/04/[address] scan of thoracic spine which showed no evidence of thoracic spine fracture, central canal or neuroforaminal stenosis or widening or destruction. Again there were reports of the right upper lobe mass abuts the posterior and medial upper lung pleural without evidence of rib or vertebral body destruction. Thoracic spine central canal and neuroforaminal metastatic disease not entirely excluded. On same day he had CT scan of chest done which showed right upper lobe apical segment centrally necrotic mass with irregular thickened wall. No evidence of chest wall invasion or extension into thoracic spine foramina or vertebral bodies.. Mass measures 6.7 x 7.3 x 7.7. Right middle lobe groundglass 4.9 mm nodule is identified. Right lower lobe lateral segment 5 mm noncalcified pulmonary nodule unchanged. Right hilar 2.3 x 1.5 x 1.8 x 1.8 cm necrotic appearing lymph node is also noted. No axillary, mediastinal or left hilar enlarged lymph node seen. Chronic emphysema and pulmonary artery enlargement also seen. Unchanged right middle and lower lobe subcentimeter nodules. 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 CT PET scan done on 12/13/2018 reported 8.2 x 7.7 x 8.9 right apex mass with central necrosis SUV 18.9. Right superior hilar lymph node with SUV 10.9 and additional mid right hilum and precarinal lymph node with SUV of 7.2. No left-sided lymphadenopathy or osseous or liver metastases. 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 Status post colonoscopy done in October 2018 #2 polyps of sigmoid colon removed otherwise unremarkable Mr Underwood has a 40+ year history of smoking now pipe smoker. Had a 20+ pound weight loss due to poor appetite. Rheumatoid arthritis and was on anti-RA medication. Which will be on hold during chemotherapy except low-dose prednisone on as-needed basis He was started on combined chemoradiation with weekly carboplatin and Taxol on 12/30/2018. This treatment plan was concluded combined chemoradiation on 01/30/2019 followed by consolidation therapy with 3 week carboplatin/Taxol on 02/19/2019 and 03/19/2019. He then started on maintenance therapy with immunotherapy durvalumab biweekly for 12 months on 05/01/2019. Patient was on low dose methotrexate and Humira for chronic arthritis, low-dose prednisone and ibuprofen as-needed basis for arthritis again Patient has history of atrial flutter for which he underwent ablation and now on low-dose anticoagulation with Eliquis 2.5 mg twice a day Follow-up CT scan of chest done on 03/20/2019 showed interval cavitation and slightly smaller right upper lobe neoplasm; postradiation changes and stable appearance right lower lobe 3-4 mm noncalcified pulmonary nodule, chronic emphysema; Decrease in the right hilar lymphadenopathy He does admit that he is having a flare of joint/muscle pain and swelling on the day after the durvalumab is administered. He states he is having significant pain in the last 4-5 days. He is using Tylenol and occasionally ibuprofen for the pain. His prednisone dose has not changed. He continues to take 5 mg twice a day. He states he sees Dr. Sheth He does continue with the methotrexate. He is not yet considered resuming the Humira as we have limited data of use with immunotherapy Follow-up CT PET scan done on 08/08/2019 showed marked interval improvement in the right upper lobe mass next Resolution of malignant right hilar and mediastinal lymph nodes and resolution of right cervical lymph node. Continues on durvalumab maintenance therapy. CT PET scan done on 10/24/2019 showed there is a minimal ongoing improvement in the right upper lobe mass now measures 6.6 x 5 cm with SUV of 10.7 and continues to demonstrate significant central necrosis and cavitation. He continues with immunotherapy. having more muscle and joint pain. He states it is been getting worse after each cycle and is now to the point to where he is almost measurable . He states the pain had been letting up between cycles but now does not. He states his pain is as bad today as it was the day after treatment. He has been trying oxycodone/APAP 5/325 mg and is not getting adequate relief. He states that he has had a history of left pleurisy and this pain hurts worse or as bad as a per se. He states his ball valving the left line and the right side chest wall. Was started on short-acting morphine Follow-up CT PET scan done on 12/05/2019 showed right upper lobe mass is minimally progressed in size at 7.7 x 4.9 cm but now has SUV of 17.2 up from 10.7 on previous study. Progression is most pronounced in the medial paravertebral portion of the mass. The central portion mass is entirely FDG negative indicating necrosis. Denies ongoing erosion of right fifth rib and a new lytic erosion of T5 vertebral body. complaining of progressive mid back pain not sufficiently controlled with short-acting morphine and otherwise no urine or stool incontinence, no lower extremity weakness. No fever or chills, no nausea or vomiting. Patient has history of chronic back pain in the past he has ' back surgery'for back pain. 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 There is no cord compression at this time. Additional enhancement without extension to the epidural space and the right T3-4 for a month. Necrotic right upper lobe neoplasm and adjacent pleural involvement. Involvement has progressed but overall neoplasm on the examination is probably not changed. Soft tissue tumor extends into prevertebral soft tissue space and extends posterior to the esophagus at the T3-5 levels.patient was referred to radiation oncology for evaluation For palliative radiation therapy which was considered and he finish palliative radiation therapy to this area on 01/08/2020 Follow-up CT PET scan done on 03/05/2020 showed qualitative mild improvement in the right upper lobe malignancy. No new lesion no evidence of metastatic disease Destruction of right fifth rib and right aspect of T5 is stable but erosion of right fourth rib is now more evident. The cavitary and necrotic portion of the mass remained FDG negative. Came for follow-up, complaining of persistent right upper mid back pain more with movements or cough, patient has thoracic brace but is noncompliant with its use. Patient said pain medicine helps him most of time but sometime as unbearable. Otherwise denies any trauma to this area. Denies any hemoptysis or hematemesis denies any headaches blurred vision double vision. Denies any new bony pains but patient has history of chronic arthritis and chronic back pain in the past Medications: Aspirin 1 Tablet (of 81 mg) Tablet Oral daily, Colace 1 (100 mg) Capsule Oral daily PRN, Digoxin 1 Tablet (of 125 mcg) Oral daily, DilTIAZem HCl 1 Tablet (of 60 mg) Oral b.i.d., Eliquis 1 Tablet (of 2.5 mg) Oral b.i.d., Folic Acid 1 Tablet (of 2000 mg) Oral daily, Furosemide 1 Tablet (of 20 mg) Oral daily, Irbesartan 1 Tablet (of 75 mg) Oral daily, Metoprolol Tartrate 1 Tablet (of 50 mg) Oral b.i.d., MiraLax Pack Oral daily, Morphine Sulfate 1 - 2 Tablet (of 30 mg) Oral q 2 to 4 hours PRN, Morphine Sulfate ER 1 Tablet (of 30 mg) Tablet, controlled release Oral q 12 hours, Pantoprazole Sodium 1 Tablet (of 40 mg) Tablet, enteric coated Oral daily, PredniSONE 1 Tablet (of 5 mg) Oral daily PRN, sulfaSALAzine (500 mg) Tablet Oral Take as Directed Allergies: Aricept Review of Systems: Constitutional - Appetite is fair and weight is stable. No fever, chills, hot flashes, night sweats. Energy level is fair, ENMT - No sinus congestion/drainage. No mouth sores. No sore throat or difficulty swallowing, Hematologic/Lymphatic - Pt reports easy bruising, Respiratory - Occasional shortness of breath. Positive for mild cough. No pleuritic pain or hemoptysis, Cardiovascular - No angina pain. No palpitations, Gastrointestinal - No nausea, no vomiting. No heartburn or acid reflux. No diarrhea. Mild constipation. No blood in the stool or black stools, Genitourinary (M) - No dysuria or hematuria. No urinary frequency. No urgency or incontinence, Musculoskeletal - Positive for pain, Neurologic - No headache or dizziness. Occasional numbness/tingling in hands and feet. Pt also continues to report what he believes is nerve pain in his back, Psychiatric - No anxiety/depression at this time, Positive for insomnia. Vital Signs: Performed on Mar 10, 2020 16:13 Height - 69.00 in Weight - 140 lbs (HIGH) BSA - 1.78 sq.m BMI - 20.67 Temperature - 98.5 F Pulse - 57 /min (LOW) Respiration - 17 /min BP - 102/43 mm(hg) O2 Sat - 97 % Pain - 8 Performance Status: 2 - Ambulatory/capable of all self-care, unable to perform any work activities. Up and about more than 50% of waking hours. (ECOG) Physical Examination: ENMT - no mouth sores, Respiratory - poor air entry, no wheezing, Cardiovascular - Regular rate and rhythm, Abdomen - no abdominal pain or distention, Extremities - no visible edema. Lab/Imaging: Test performed on Dec 17, 2019 09:05 Sodium 132 mmol/L Potassium 4.0 mmol/L Chloride 93 mmol/L CO2 28 mmol/L Anion Gap 15.0 BUN 23 mg/dL Creatinine 0.9 mg/dL Cr Clearance (Est) 74.50 mL/min eGFR 84.2 mL/min Glucose 127 mg/dL Calcium 10.1 mg/Dl Protein, Total 6.6 g/dL Albumin 3.5 g/dL Globulin 3.1 g/dL Bilirubin, Total 0.4 mg/dL ALT (SGPT) 10 U/L AST (SGOT) 15 U/L Alkaline Phosphatase 80 IU/L WBC 8.0 10 3/uL RBC 3.10 10 6/uL HGB 9.9 g/dL HCT 30.0 % MCV 96.8 fL MCH 31.9 pg MCHC 33.0 g/dL RDW 14.6 % Platelet Count 210 10 3/cmm MPV 10.9 fL Neutrophils 6.4 10 3/uL Lymphocytes 0.6 10 3/uL Monocytes 0.8 10 3/uL Eosinophils 0.1 10 3/uL Basophils 0.0 10 3/uL Neutrophil % 79.7 % Lymphocyte % 8.0 % Monocyte % 10.5 % Eosinophil % 1.3 % Basophils % 0.1 % Test performed on Dec 09, 2019 09:32 Manual Lymphocytes 7.2 % Manual Monocytes 5.9 % Manual Eosinophils 0.4 % Manual Basophils 0.3 % NRBCs 0 /100 WBC Impression: Poorly differentiated squamous cell carcinoma of right upper lobe per CT-guided biopsy done on 11/14/2018 CT scan of chest done on 11/04/2018 showed right upper lobe mass 6.7 x 7.3 x 7.7 cm with right hilar 2.3 x 1.5 x 1.8 x 1.[address] scan of thoracic spine showed no evidence of thoracic spine fracture, or destruction or neuroforaminal stenosis. CT PET scan done on 12/13/2018 showed 8.2 x 7.7 x 8.9 cms mass right apex with central necrosis and SUV 18.9. T4 Right superior hilar lymph node with SUV 10.9 Additional mid right hilar and precarinal lymphadenopathy with SUV 7.2 No left sided lymphadenopathy or osseous liver metastases. A subcentimeter right cervical level IV lymph node FDG positive suspicious for metastatic disease N3 History of atrial flutter, being managed by cardiology Anemia, normocytic normochromic, due to chemotherapy MRI scan of the head done on 12/10/2018 showed no brain metastases Clinical stage IIIC Right upper back/axillary area pain due to right upper lobe malignancy Chronic emphysema/chronic smoking Weight loss History of colonic high-grade dysplastic polyps status post segmental resection with end-to-end anastomosis and recently done colonoscopy in October 2018 was unremarkable except 2 benign polyps were removed. Started on combined chemoradiation on 12/30/2018 with weekly carboplatin and Taxol Concluded on 01/30/2019 Along with SB RT to the cervical lymph node seen on CT PET scan Started on consolidation therapy with 3 weekly dose of carboplatin/Taxol on 02/19/2019 and finished 2 cycles of consolidation chemotherapy on 03/19/2019 as patient is high risk for recurrence of disease, as per NCCN guidelines, consolidation therapy with two cycle of chemotherapy followed by maintenance therapy with immunotherapy with durvalumab every 2 weeks for 12 months , may give him the best recurrence/progression free status, as literature has shown overall survival at 24 months was 66.3% for durvalumab versus 55.6% for placebo and progression free survival was 17.2 months for durvalumab versus 5.6 month with placebo and median time to or distant metastases was significant longer with durvalumab e.g 28.3 months versus 16.2 months with placebo Follow-up CT scan scan of chest done on 03/20/2019 showed interval cavitation and slightly smaller right upper lobe neoplasm. No interval rib destruction Interval right lateral mediastinal and tracheoesophageal groove fat induration at the level of the mass. Possible represent postradiation changes however tumoral infiltration not entirely excluded Stable appearance of right lower lobe 3-4 mm noncalcified pulmonary nodule Chronic emphysema Cold extremities, hypotension with mild bradycardia, blood pressure 92/39 pulse 60/m, probably medication induced patient is on CARMEN inhibitor, beta blockers and calcium channel beltran, discussed with Dr. 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 Decrease right hilar lymphadenopathy measuring up to 12 mm compared to 18 mm. Follow-up CT PET scan done on 08/08/2019 showed right upper lobe mass now measures 7.3 x 4.8 cm is significantly more necrotic and now demonstrates central cavitation with medial hypermetabolic segments of soft tissue demonstrating an SUV of 11.9. This is consistent with positive response to therapy. There has been resolution of right superior hilar, right mid hilum, pre-carinal and right cervical level IV lymph node. He did have follow-up PET/CT on 10/24/2019 which continues to report minimal improvement in the right upper lobe mass. At that time it measured 6.6 x 5 cm with an SUV of 10.7. There is continued evidence of significant central necrosis and cavitation. There were no other findings to indicate metastatic disease or osseous disease. Mr. Underwood has completed 15 cycles of the Imfinzi. He states that every cycle he is having significant pain but is worsening every time. He states that just about the time it is due to repeat the Imfinzi he is starting to get slight relief. However with this last cycle he has not gotten any relief at all between the cycles. He is requesting to stop the Imfinzi at least temporarily to see if this will help his symptoms. Plan: Discussed with patient regarding his labs white blood count 7.3 hemoglobin 8.9 hematocrit 29.7 platelets 211,000 CMP within normal limits and follow-up CT PET scan done on 03/05/2020 which shows no evidence of disease progression that is stable or some improvement in right upper lobe malignancy. And stable T5 and right fifth and fourth rib ribs Patient is more concerned about persistent mid upper back pain which is most likely due to damaged fifth/fourth and T5 vertebra. At this point we will refer him to pain clinic for evaluation for nerve block patient was advised to use thoracic brace. Patient also agreed for Xgeva therapy. We'll proceed with monthly Xgeva along with vitamin D and calcium supplement to prevent skeletal related complications. As far as non-small cell lung cancer is concern, treatment options were discussed palliative therapy versus observation, patient prefer observation for the time being, if his mid back pain improves, either with thoracic brace on Xgeva or nerve block then he may consider palliative therapy otherwise he may consider hospice care. In the meantime patient was advised to take pain medicine as directed and then return to clinic in one month with CBC CMP and for next dose of Xgeva and hopefully by that time he will have evaluation done by pain clinic for nerve block. And we will discuss about further treatment options. Mild to moderate anemia, etiology unclear could be multifactorial including anemia of chronic disease/malignancy. We will continue monitor if hemoglobin drops below 8 g consider blood transfusion. Next Return to clinic in one month with CBC CMP. Signed By: Carmen Weiss M.D. <<Signature on File>>
== END 2020-03-24 23:59 | disposition home or self-care (01) ==
LOC: ONCMED 07:31
PROVIDERS: Family Provider Family Medicine; PCP Family Medicine; Visit Provider Internal Medicine Hematology & Oncology
DX: C34.11 Malignant neoplasm of upper lobe, right bronchus or lung (principal); C79.51 Secondary malignant neoplasm of bone; G89.3 Neoplasm related pain (acute) (chronic); D64.9 Anemia, unspecified; J43.9 Emphysema, unspecified; I48.92 Unspecified atrial flutter; F17.290 Nicotine dependence, other tobacco product, uncomplicated; Z79.891 Long term (current) use of opiate analgesic; Z79.52 Long term (current) use of systemic steroids; Z86.010 Personal history of colon polyps; Z92.3 Personal history of irradiation; Z79.899 Other long term (current) drug therapy
CPT/HCPCS: 36415; 80053; 85025; 96372; 96523; 99214; J0897

== ENCOUNTER → 2020-03-24 12:29 | Outpatient (BNVA) | payer MEDICARE, OTHER, SELFPAY | PROVIDERS: Family Provider Family Medicine; PCP Family Medicine; Visit Provider Anesthesiology Pain Medicine | DX: M54.9 Dorsalgia, unspecified (principal); Z79.891 Long term (current) use of opiate analgesic | CPT/HCPCS: 99204; 99205 ==

== ENCOUNTER → 2020-04-04 08:43 | Outpatient (BNVA) | payer MEDICARE, OTHER, SELFPAY | PROVIDERS: Family Provider Family Medicine; PCP Family Medicine; Visit Provider Anesthesiology Pain Medicine | DX: R07.81 Pleurodynia (principal); M54.9 Dorsalgia, unspecified | CPT/HCPCS: 36415; 64420; 64421; 80053; 85025; J1030; J2001; J3490 ==

== ENCOUNTER 2020-04-07 06:42 | Outpatient (RCR) | payer MEDICARE, OTHER, SELFPAY ==
[2020-04-04 15:29] LABS: Basophils # 0.1 10^3/uL (0.0-0.1); Basophils % 0.9 %; Eosinophils # 0.1 10^3/uL (0.0-0.8); Eosinophils % 0.9 %; Hemoglobin 10.2 g/dL (11.7-16.6); Lymphocytes # 0.9 10^3/uL (0.8-4.8); Lymphocytes % 12.6 %; Mean Corpuscular Hemoglobin 27.6 pg (28.0-34.0); Mean Corpuscular Volume 91.9 fL (80-94); Mean Platelet Volume 10.8 fL (7.4-10.4); Monocytes # 0.7 10^3/uL (0.2-0.9); Monocytes % 9.6 %; Neutrophils # 5.2 10^3/uL (1.8-7.7); Neutrophils % 75.7 %; Nucleated Red Blood Cells % 0 %; Platelet Count 304 10^3/cmm (130-400); Red Cell Distribution Width 16.9 % (12.1-15.1); White Blood Count 6.8 10^3/uL (4.0-10.0)
[2020-04-04 15:56] LABS: Alanine Aminotransferase 8 U/L (0-41); Albumin Level 3.3 g/dL (3.5-5.2); Alkaline Phosphatase 92 IU/L (40-130); Anion Gap 15.2 (5-19); Aspartate Amino Transferase 12 U/L (0-40); Blood Urea Nitrogen 13 mg/dL (8-23); Calcium 8.7 mg/dL (8.5-10.5); Carbon Dioxide 28 mmol/L (22-29); Chloride 93 mmol/L (98-107); Globulin 3.7 g/dL (1.3-4.6); Glomerular Filtration Rate 96.4 mL/min (90-130); Glucose 152 mg/dL (65-115); Osmolality Calculated 273 mOsm/kg (285-295); Potassium 4.2 mmol/L (3.5-5.1); Sodium 132 mmol/L (136-145); Total Bilirubin 0.2 mg/dL (0.15-1.2)
[2020-04-07] MEDS: denosumab 120 mg SDV SUBCUT (12:25)
--- NOTE | 2020-04-07 17:36 | ONC FU_ITS ---
Dr. Weiss follow up note Patient: Chaitanya Underwood Unit #: [id number]: 1950 Dicatated By: Carmen Weiss M.D.Date of Visit:April 07, 2020 Onc Med Follow-up/Prog Note History of Present Illness: Mr. Underwood is a 69-year-old gentleman who developed right upper back pain including spasm and stiffness. The pain was also radiating to the right arm and axillary area. It was a progressive in nature. He was evaluated by his primary care physician and on 11/03/2018 he had x-ray of the thoracic spine which was suspicious for large mass right upper lobe. On 11/04/[address] scan of thoracic spine which showed no evidence of thoracic spine fracture, central canal or neuroforaminal stenosis or widening or destruction. Again there were reports of the right upper lobe mass abuts the posterior and medial upper lung pleural without evidence of rib or vertebral body destruction. Thoracic spine central canal and neuroforaminal metastatic disease not entirely excluded. On same day he had CT scan of chest done which showed right upper lobe apical segment centrally necrotic mass with irregular thickened wall. No evidence of chest wall invasion or extension into thoracic spine foramina or vertebral bodies.. Mass measures 6.7 x 7.3 x 7.7. Right middle lobe groundglass 4.9 mm nodule is identified. Right lower lobe lateral segment 5 mm noncalcified pulmonary nodule unchanged. Right hilar 2.3 x 1.5 x 1.8 x 1.8 cm necrotic appearing lymph node is also noted. No axillary, mediastinal or left hilar enlarged lymph node seen. Chronic emphysema and pulmonary artery enlargement also seen. Unchanged right middle and lower lobe subcentimeter nodules. 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 CT PET scan done on 12/13/2018 reported 8.2 x 7.7 x 8.9 right apex mass with central necrosis SUV 18.9. Right superior hilar lymph node with SUV 10.9 and additional mid right hilum and precarinal lymph node with SUV of 7.2. No left-sided lymphadenopathy or osseous or liver metastases. 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 Status post colonoscopy done in October 2018 #2 polyps of sigmoid colon removed otherwise unremarkable Mr Underwood has a 40+ year history of smoking now pipe smoker. Had a 20+ pound weight loss due to poor appetite. Rheumatoid arthritis and was on anti-RA medication. Which will be on hold during chemotherapy except low-dose prednisone on as-needed basis He was started on combined chemoradiation with weekly carboplatin and Taxol on 12/30/2018. This treatment plan was concluded combined chemoradiation on 01/30/2019 followed by consolidation therapy with 3 week carboplatin/Taxol on 02/19/2019 and 03/19/2019. He then started on maintenance therapy with immunotherapy durvalumab biweekly for 12 months on 05/01/2019. Patient was on low dose methotrexate and Humira for chronic arthritis, low-dose prednisone and ibuprofen as-needed basis for arthritis again Patient has history of atrial flutter for which he underwent ablation and now on low-dose anticoagulation with Eliquis 2.5 mg twice a day Follow-up CT scan of chest done on 03/20/2019 showed interval cavitation and slightly smaller right upper lobe neoplasm; postradiation changes and stable appearance right lower lobe 3-4 mm noncalcified pulmonary nodule, chronic emphysema; Decrease in the right hilar lymphadenopathy He does admit that he is having a flare of joint/muscle pain and swelling on the day after the durvalumab is administered. He states he is having significant pain in the last 4-5 days. He is using Tylenol and occasionally ibuprofen for the pain. His prednisone dose has not changed. He continues to take 5 mg twice a day. He states he sees Dr. Sheth He does continue with the methotrexate. He is not yet considered resuming the Humira as we have limited data of use with immunotherapy Follow-up CT PET scan done on 08/08/2019 showed marked interval improvement in the right upper lobe mass next Resolution of malignant right hilar and mediastinal lymph nodes and resolution of right cervical lymph node. Continues on durvalumab maintenance therapy. CT PET scan done on 10/24/2019 showed there is a minimal ongoing improvement in the right upper lobe mass now measures 6.6 x 5 cm with SUV of 10.7 and continues to demonstrate significant central necrosis and cavitation. He continues with immunotherapy. having more muscle and joint pain. He states it is been getting worse after each cycle and is now to the point to where he is almost measurable . He states the pain had been letting up between cycles but now does not. He states his pain is as bad today as it was the day after treatment. He has been trying oxycodone/APAP 5/325 mg and is not getting adequate relief. He states that he has had a history of left pleurisy and this pain hurts worse or as bad as a per se. He states his ball valving the left line and the right side chest wall. Was started on short-acting morphine Follow-up CT PET scan done on 12/05/2019 showed right upper lobe mass is minimally progressed in size at 7.7 x 4.9 cm but now has SUV of 17.2 up from 10.7 on previous study. Progression is most pronounced in the medial paravertebral portion of the mass. The central portion mass is entirely FDG negative indicating necrosis. Denies ongoing erosion of right fifth rib and a new lytic erosion of T5 vertebral body. complaining of progressive mid back pain not sufficiently controlled with short-acting morphine and otherwise no urine or stool incontinence, no lower extremity weakness. No fever or chills, no nausea or vomiting. Patient has history of chronic back pain in the past he has ' back surgery'for back pain. 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 There is no cord compression at this time. Additional enhancement without extension to the epidural space and the right T3-4 for a month. Necrotic right upper lobe neoplasm and adjacent pleural involvement. Involvement has progressed but overall neoplasm on the examination is probably not changed. Soft tissue tumor extends into prevertebral soft tissue space and extends posterior to the esophagus at the T3-5 levels.patient was referred to radiation oncology for evaluation For palliative radiation therapy which was considered and he finish palliative radiation therapy to this area on 01/08/2020 Follow-up CT PET scan done on 03/05/2020 showed qualitative mild improvement in the right upper lobe malignancy. No new lesion no evidence of metastatic disease Destruction of right fifth rib and right aspect of T5 is stable but erosion of right fourth rib is now more evident. The cavitary and necrotic portion of the mass remained FDG negative. Patient was referred to pain clinic where he underwent nerve block recently, felt somewhat better. Came for follow-up, denies any specific complaints, no nausea or vomiting, no diarrhea constipation, no fever or chills, mid back pain is under better control since Nerve block study. Otherwise denies any hemoptysis or hematemesis, denies any jaundice, denies any weight loss, denies any new bony pains, Medications: Aspirin 1 Tablet (of 81 mg) Tablet Oral daily, Colace 1 (100 mg) Capsule Oral daily PRN, Digoxin 1 Tablet (of 125 mcg) Oral daily, DilTIAZem HCl 1 Tablet (of 60 mg) Oral b.i.d., Eliquis 1 Tablet (of 2.5 mg) Oral b.i.d., Folic Acid 1 Tablet (of 2000 mg) Oral daily, Furosemide 1 Tablet (of 20 mg) Oral daily, Irbesartan 1 Tablet (of 75 mg) Oral daily, Metoprolol Tartrate 1 Tablet (of 50 mg) Oral b.i.d., MiraLax Pack Oral daily, Morphine Sulfate 1 - 2 Tablet (of 30 mg) Oral q 2 to 4 hours PRN, Morphine Sulfate ER 1 Tablet (of 30 mg) Tablet, controlled release Oral q 12 hours, Pantoprazole Sodium 1 Tablet (of 40 mg) Tablet, enteric coated Oral daily, PredniSONE 1 Tablet (of 5 mg) Oral daily PRN, sulfaSALAzine (500 mg) Tablet Oral Take as Directed Allergies: Aricept Review of Systems: Constitutional - Appetite is poor and weight is decreasing. No fever, hot flashes. Positive for chills and occasional night sweats. Energy level is poor, ENMT - No sinus congestion/drainage. No mouth sores. No sore throat or difficulty swallowing, Hematologic/Lymphatic - Pt reports easy bruising, Respiratory - Occasional shortness of breath. Positive for mild cough. No pleuritic pain or hemoptysis, Cardiovascular - No angina pain. No palpitations, Gastrointestinal - Positive for nausea, no vomiting. No heartburn or acid reflux. No diarrhea. Mild constipation. No blood in the stool or black stools, Genitourinary (M) - No dysuria or hematuria. No urinary frequency. No urgency or incontinence, Musculoskeletal - Positive for back pain, Neurologic - No headache or dizziness. No numbness/tingling in hands and feet. Pt also continues to report what he believes is nerve pain in his back, Psychiatric - Positive for occasional anxiety/depression, Positive for insomnia. Vital Signs: Performed on April 07, 2020 11:37 Height - 69.00 in Weight - 132.2 lbs (LOW) BSA - 1.73 sq.m BMI - 19.52 Temperature - 97.4 F (LOW) Pulse - 57 /min (LOW) Respiration - 16 /min BP - 104/40 mm(hg) O2 Sat - 99 % Pain - 7 Performance Status: 2 - Ambulatory/capable of all self-care, unable to perform any work activities. Up and about more than 50% of waking hours. (ECOG) Physical Examination: ENMT - no thrush or mouth sores, Respiratory - Lungs are clear, Cardiovascular - Regular rate and rhythm of heart, Abdomen - soft, bowel sounds present, Extremities - no edema or rash. Lab/Imaging: Test performed on April 04, 2020 14:25 Sodium 132 mmol/L Potassium 4.2 mmol/L Chloride 93 mmol/L CO2 28 mmol/L Anion Gap 15.2 BUN 13 mg/dL Creatinine 0.8 mg/dL Cr Clearance (Est) 83.8200 mL/min eGFR 96.4 mL/min Glucose 152 mg/dL Calcium 8.7 mg/dL Protein, Total 7.0 g/dL Albumin 3.3 g/dL Globulin 3.7 g/dL Bilirubin, Total 0.2 mg/dL ALT (SGPT) 8 U/L AST (SGOT) 12 U/L Alkaline Phosphatase 92 IU/L WBC 6.8 10 3/uL RBC 3.70 10 6/uL HGB 10.2 g/dL HCT 34.0 % MCV 91.9 fL MCH 27.6 pg MCHC 30.0 g/dL RDW 16.9 % Platelet Count 304 10 3/cmm MPV 10.8 fL Neutrophils 5.2 10 3/uL Lymphocytes 0.9 10 3/uL Monocytes 0.7 10 3/uL Eosinophils 0.1 10 3/uL Basophils 0.1 10 3/uL Neutrophil % 75.7 % Lymphocyte % 12.6 % Monocyte % 9.6 % Eosinophil % 0.9 % Basophils % 0.9 % Test performed on Dec 09, 2019 09:32 Manual Lymphocytes 7.2 % Manual Monocytes 5.9 % Manual Eosinophils 0.4 % Manual Basophils 0.3 % NRBCs 0 /100 WBC Impression: Poorly differentiated squamous cell carcinoma of right upper lobe per CT-guided biopsy done on 11/14/2018 CT scan of chest done on 11/04/2018 showed right upper lobe mass 6.7 x 7.3 x 7.7 cm with right hilar 2.3 x 1.5 x 1.8 x 1.[address] scan of thoracic spine showed no evidence of thoracic spine fracture, or destruction or neuroforaminal stenosis. CT PET scan done on 12/13/2018 showed 8.2 x 7.7 x 8.9 cms mass right apex with central necrosis and SUV 18.9. T4 Right superior hilar lymph node with SUV 10.9 Additional mid right hilar and precarinal lymphadenopathy with SUV 7.2 No left sided lymphadenopathy or osseous liver metastases. A subcentimeter right cervical level IV lymph node FDG positive suspicious for metastatic disease N3 History of atrial flutter, being managed by cardiology Anemia, normocytic normochromic, due to chemotherapy MRI scan of the head done on 12/10/2018 showed no brain metastases Clinical stage IIIC Right upper back/axillary area pain due to right upper lobe malignancy Chronic emphysema/chronic smoking Weight loss History of colonic high-grade dysplastic polyps status post segmental resection with end-to-end anastomosis and recently done colonoscopy in October 2018 was unremarkable except 2 benign polyps were removed. Started on combined chemoradiation on 12/30/2018 with weekly carboplatin and Taxol Concluded on 01/30/2019 Along with SB RT to the cervical lymph node seen on CT PET scan Started on consolidation therapy with 3 weekly dose of carboplatin/Taxol on 02/19/2019 and finished 2 cycles of consolidation chemotherapy on 03/19/2019 as patient is high risk for recurrence of disease, as per NCCN guidelines, consolidation therapy with two cycle of chemotherapy followed by maintenance therapy with immunotherapy with durvalumab every 2 weeks for 12 months , may give him the best recurrence/progression free status, as literature has shown overall survival at 24 months was 66.3% for durvalumab versus 55.6% for placebo and progression free survival was 17.2 months for durvalumab versus 5.6 month with placebo and median time to or distant metastases was significant longer with durvalumab e.g 28.3 months versus 16.2 months with placebo Follow-up CT scan scan of chest done on 03/20/2019 showed interval cavitation and slightly smaller right upper lobe neoplasm. No interval rib destruction Interval right lateral mediastinal and tracheoesophageal groove fat induration at the level of the mass. Possible represent postradiation changes however tumoral infiltration not entirely excluded Stable appearance of right lower lobe 3-4 mm noncalcified pulmonary nodule Chronic emphysema Cold extremities, hypotension with mild bradycardia, blood pressure 92/39 pulse 60/m, probably medication induced patient is on CARMEN inhibitor, beta blockers and calcium channel beltran, discussed with Dr. Bardales bilingual sales assistant on 05/14/2019 and will reduce his irbesartan dose to 75 mg by mouth daily from 150 mg by mouth daily. Decrease right hilar lymphadenopathy measuring up to 12 mm compared to 18 mm. Follow-up CT PET scan done on 08/08/2019 showed right upper lobe mass now measures 7.3 x 4.8 cm is significantly more necrotic and now demonstrates central cavitation with medial hypermetabolic segments of soft tissue demonstrating an SUV of 11.9. This is consistent with positive response to therapy. There has been resolution of right superior hilar, right mid hilum, pre-carinal and right cervical level IV lymph node. He did have follow-up PET/CT on 10/24/2019 which continues to report minimal improvement in the right upper lobe mass. At that time it measured 6.6 x 5 cm with an SUV of 10.7. There is continued evidence of significant central necrosis and cavitation. There were no other findings to indicate metastatic disease or osseous disease. Mr. Underwood has completed 15 cycles of the Imfinzi. He states that every cycle he is having significant pain but is worsening every time. He states that just about the time it is due to repeat the Imfinzi he is starting to get slight relief. However with this last cycle he has not gotten any relief at all between the cycles. He is requesting to stop the Imfinzi at least temporarily to see if this will help his symptoms. Plan: Discussed with patient regarding his labs white blood count 6.8 hemoglobin 10.2 hematocrit 34 platelets 304,000 CMP within normal limit except glucose 152 Clinically, patient is doing reasonably well, no signs symptoms suggestive of disease progression, now being observed at patient request. At this point we will proceed with his monthly dose of Xgeva and then change to every 2 months while continue with monthly port maintenance. Patient return to clinic in 2 months with CBC CMP As for his anemia is concerned, appears multifactorial, hemoglobin is improving and patient is not symptomatic, will continue to monitor As far as mid upper back pain is concern, patient recently underwent nerve block. And felt better we will also transfer his pain management care to the pain clinic under Dr. Richards, patient is scheduled to see him on 04/19/2020. Signed By: Carmen Weiss M.D. <<Signature on File>>
== END 2020-04-24 23:59 | disposition home or self-care (01) ==
LOC: ONCMED 06:42
PROVIDERS: PCP Family Medicine; Visit Provider Internal Medicine Hematology & Oncology
DX: Z51.12 Encounter for antineoplastic immunotherapy (principal); C34.11 Malignant neoplasm of upper lobe, right bronchus or lung; C79.51 Secondary malignant neoplasm of bone; Z92.3 Personal history of irradiation; I48.92 Unspecified atrial flutter; D64.81 Anemia due to antineoplastic chemotherapy; J43.8 Other emphysema; F17.210 Nicotine dependence, cigarettes, uncomplicated; R63.4 Abnormal weight loss; Z86.12 Personal history of poliomyelitis; Z45.2 Encounter for adjustment and management of vascular access device
CPT/HCPCS: 96372; 96523; 99214; J0897

== ENCOUNTER → 2020-04-19 13:30 | Outpatient (BNVA) | payer MEDICARE, OTHER, SELFPAY | PROVIDERS: PCP Family Medicine; Visit Provider Anesthesiology Pain Medicine | DX: M54.9 Dorsalgia, unspecified (principal); M05.79 Rheumatoid arthritis with rheumatoid factor of multiple sites without organ or systems involvement; C34.91 Malignant neoplasm of unspecified part of right bronchus or lung; K59.03 Drug induced constipation; T40.2X5A Adverse effect of other opioids, initial encounter; X58.XXXA Exposure to other specified factors, initial encounter; Z79.891 Long term (current) use of opiate analgesic | CPT/HCPCS: 99214 ==

== ENCOUNTER → 2020-05-10 10:05 | Outpatient (BNVA) | payer MEDICARE, OTHER, SELFPAY | PROVIDERS: PCP Family Medicine; Visit Provider Anesthesiology Pain Medicine | DX: M54.9 Dorsalgia, unspecified (principal); C34.91 Malignant neoplasm of unspecified part of right bronchus or lung; K59.03 Drug induced constipation; T40.2X5A Adverse effect of other opioids, initial encounter; Z79.891 Long term (current) use of opiate analgesic | CPT/HCPCS: 99214 ==

== ENCOUNTER → 2020-05-18 11:05 | Outpatient (BNVA) | payer MEDICARE, OTHER, SELFPAY | PROVIDERS: PCP Family Medicine; Visit Provider Anesthesiology Pain Medicine | DX: M54.9 Dorsalgia, unspecified (principal); C34.91 Malignant neoplasm of unspecified part of right bronchus or lung; K59.03 Drug induced constipation; T40.2X5A Adverse effect of other opioids, initial encounter; X58.XXXA Exposure to other specified factors, initial encounter; Z79.891 Long term (current) use of opiate analgesic | CPT/HCPCS: 99214 ==

== ENCOUNTER 2020-05-24 08:52 | Inpatient (IN) | payer MEDICARE, OTHER, SELFPAY ==
[2020-05-24] VITALS (11 sets, daily range): BP systolic 143–179; BP diastolic 63–88; PULSE 63–75; RESP 14–18; TEMP 36.4–37.5; O2SAT 95–100; BMI 20.3
--- NOTE | 2020-05-24 09:07 | ED_ITS ---
HPI - General Adult General: Chief complaint: General Medical Stated complaint: WEAKNESS, FALL, URINARY RETENTION Time Seen by Provider: 05/24/20 08:53 History of Present Illness: HPI narrative: 69-year-old male comes in complaining of generally not feeling well is got some abdominal discomfort earlier this morning he got up was standing in the home and he collapsed. He was able to get back up with the assistance of others. He has known history of non-small cell lung CA which she is just monitoring he has some invasive metastasis into the right thoracic spine that causes a fair amount of pain. He still has some upper back pain now. He feels like he has been able to void either in his abdominal discomfort. His old charts including oncology notes were reviewed. He has known mets to his thoracic spine. He has noticed the last few days increasing weakness in his right leg as well as urinary tension. Onset (ago): minute(s) Location: abdomen Severity: moderate Quality: aching Pain Consistency: intermittent Relieving factors: none Exacerbating factors: none Associated symptoms: Reports malaise, nausea and weakness; Deny chest pain, dyspnea or rash Treatments prior to arrival: none Review of Systems Const: Reports: malaise ENMT: Denies: throat pain, ear or mastoid pain, nasal discharge or nasal congestion Card: Denies: chest pain, edema, dyspnea on exertion or orthopnea Resp: Denies: dyspnea, productive cough or non-productive cough GI: Reports: nausea : Denies: flank pain, dysuria, urinary frequency or urinary urgency Skin/Breast: Denies: rash or pruritus [facility] ED PFSH: Medical History Atrial flutter Rate uncontrolled. With addition of digoxin rate is now controlled. 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 Has completed chemotherapy. Immunotherapy has been stopped. Has received palliative radiation to the spine. Seropositive rheumatoid arthritis of multiple joints Surgical History History of discectomy L5 History of left knee surgery History of partial colectomy History of repair of right rotator cuff Status post left foot surgery [place] Family History Other Cancer Lung disease Denies family history of Rheumatoid arthritis Lupus Social History Smoking and tobacco status: former smoker Quit status (tobacco): has quit using tobacco Year quit tobacco: 2108 Alcohol intake: never Lives independently: Yes Household members: spouse Marital status: History of recent travel: No Physical Exam Const: COMMON NORMALS: no acute distress GENERAL APPEARANCE: cooperative and comfortable ORIENTATION/CONSCIOUSNESS: Yes awake, Yes oriented to person, Yes oriented to place and Yes oriented to time HENMT: COMMON NORMALS: normocephalic, atraumatic, hearing grossly normal bilaterally, external ears normal, EAC's normal, TM's normal bilaterally, Normal nasal mucous membranes and turbinates present, moist oral mucous membranes and oropharynx normal HEAD & SCALP: normocephalic and atraumatic NOSE: Normal nasal mucous membranes and turbinates present EXTERNAL EAR: Yes external ears normal EXTERNAL AUDITORY CANAL: EAC's normal TYMPANIC MEMBRANE: TM's normal bilaterally Eye: COMMON NORMALS: Equal, round and reactive pupils present, EOMs intact bilaterally, conjunctivae normal and no scleral icterus CONJUNCTIVA: Yes conjunctivae normal PUPIL: Yes Equal, round and reactive pupils present Neck/C-Spine: COMMON NORMALS: full ROM, no lymphadenopathy, supple and no JVD Lymph: LYMPHATIC: no lymphadenopathy noted and no lymphedema noted Resp: COMMON NORMALS: normal respiratory effort, No retractions, No use of accessory muscles and clear to auscultation bilaterally AUSCULTATION: clear to auscultation bilaterally Cardio: COMMON NORMALS: no JVD, regular rate, regular rhythm and No murmurs present (Cardio) RATE: regular rate RHYTHM: regular rhythm GI: COMMON NORMALS: Soft to palpation and No hepatosplenomegaly present AUSCULTATION: Yes normoactive bowel sounds PALPATION: Yes Soft to palpation, No Tenderness to palpation present (GI), No Guarding due to palpation present (GI) and Yes No hepatosplenomegaly present Extremity: COMMON NORMALS: normal to inspection, capillary refill normal, no clubbing, cyanosis or edema, no calf tenderness and no pedal edema Neuro: SENSORIUM/ORIENTATION: Yes oriented to person, Yes oriented to place and Yes oriented to time Skin: COMMON NORMALS: no rashes or lesions noted GENERAL SKIN EXAM: no rashes or lesions noted Course Vital Signs: Vital signs: Vital Signs Temperature 98.0 F 05/26/20 11:59 Pulse Rate 53 L 05/26/20 11:59 Respiratory Rate 16 05/26/20 13:48 Blood Pressure 146/62 05/26/20 11:59 Pulse Oximetry 94 05/26/20 13:48 MDM - General Adult MDM Narrative: Medical decision making narrative: Patient in 900 and his bladder after urinating 300 on the blood bladder scan good relief of symptoms with placement of catheter and return of urine. Reviewed labs no sign of renal injury. He is chronically anemic. He is a little bit lower today down from 10 to date 6 may need outpatient transfusions shortly. After placing the catheter he is feeling much better. Given his increasing right leg weakness and urinary retention and cauda equina syndrome is a concern. He has been focusing more on palliative care we had a discussion about whether or not he would be aggressive what he might want to do if this tumor has invaded his spine and is causing problems. Ultimately decided he like to know before make a decision we will go ahead and get a CT of the lumbar spine and thoracic spine Lab Data: Attestation: I reviewed the patient's lab results. Labs: Lab Results 05/24/20 05/24/20 05/24/20 Range/Units 09:17 09:27 09:27 WBC 8.7 (4.0-10.0) 10^3/ uL RBC 3.07 L (4.1-5.3) 10^6/u L Hgb 8.6 L (11.7-16.6) g/dL Hct 27.9 L (42.0-52.0) % MCV 90.9 (80-94) fL MCH 28.0 (28.0-34.0) pg MCHC 30.8 (30.0-36.0) g/dL RDW 17.0 H (12.1-15.1) % Plt Count 317 (130-400) 10^3/c mm MPV 10.0 (7.4-10.4) fL Neut % (Auto) 80.8 % Lymph % (Auto) 8.2 % Smyth % (Auto) 7.8 % Eos % (Auto) 2.4 % Baso % (Auto) 0.5 % Neut # (Auto) 7.0 (1.8-7.7) 10^3/u L Lymph # (Auto) 0.7 L (0.8-4.8) 10^3/u L Smyth # (Auto) 0.7 (0.2-0.9) 10^3/u L Eos # (Auto) 0.2 (0.0-0.8) 10^3/u L Baso # (Auto) 0.0 (0.0-0.1) 10^3/u L Nucleated RBC % (a uto) 0 % Nucleated RBCs # 0.0 /100WBC Sodium 137 (136-145) mmol/L Potassium 4.4 (3.5-5.1) mmol/L Chloride 99 (98-107) mmol/L Carbon Dioxide 28 (22-29) mmol/L Anion Gap 14.4 (5-19) BUN 21 (8-23) mg/dL Creatinine 0.6 L (0.7-1.2) mg/dL GFR Calculation 134.4 H (90-130) mL/min Glucose 107 (65-115) mg/dL Calculated Osmolal ity 281 L (285-295) mOsm/k g Calcium 9.5 (8.5-10.5) mg/dL Iron (59-158) ug/dL TIBC mcg/dl % Saturation (20-50) % Unsat Iron Binding (112-347) ug/dL Total Bilirubin 0.4 (0.15-1.2) mg/dL AST 14 (0-40) U/L ALT 9 (0-41) U/L Alkaline Phosphata se 77 (40-130) IU/L Total Protein 7.0 (6.6-8.7) g/dL Albumin 3.3 L (3.5-5.2) g/dL Globulin 3.7 (1.3-4.6) g/dL Lipase 18 (13-60) U/L TSH (0.27-4.20) uIU/ mL Urine Color Straw (Yellow) Urine Appearance Clear (CLEAR) Urine pH 7.0 (5-7) Ur Specific Gravit y 1.005 (1.005-1.030) Urine Protein Neg (Negative) Urine Glucose (UA) Norm (Normal) Urine Ketones Negative (Negative) Urine Blood Neg (Negative) Urine Nitrate Negative (Negative) Urine Bilirubin Neg (NEGATIVE) Urine Urobilinogen Norm (Negative) mg/dL Ur Leukocyte Nanci ase Negative (Negative) Serum Ketones (Negative) 05/24/20 05/24/20 05/24/20 Range/Units 09:27 09:27 09:27 WBC (4.0-10.0) 10^3/ uL RBC (4.1-5.3) 10^6/u L Hgb (11.7-16.6) g/dL Hct (42.0-52.0) % MCV (80-94) fL MCH (28.0-34.0) pg MCHC (30.0-36.0) g/dL RDW (12.1-15.1) % Plt Count (130-400) 10^3/c mm MPV (7.4-10.4) fL Neut % (Auto) % Lymph % (Auto) % Smyth % (Auto) % Eos % (Auto) % Baso % (Auto) % Neut # (Auto) (1.8-7.7) 10^3/u L Lymph # (Auto) (0.8-4.8) 10^3/u L Smyth # (Auto) (0.2-0.9) 10^3/u L Eos # (Auto) (0.0-0.8) 10^3/u L Baso # (Auto) (0.0-0.1) 10^3/u L Nucleated RBC % (a uto) % Nucleated RBCs # /100WBC Sodium (136-145) mmol/L Potassium (3.5-5.1) mmol/L Chloride (98-107) mmol/L Carbon Dioxide (22-29) mmol/L Anion Gap (5-19) BUN (8-23) mg/dL Creatinine (0.7-1.2) mg/dL GFR Calculation (90-130) mL/min Glucose (65-115) mg/dL Calculated Osmolal ity (285-295) mOsm/k g Calcium (8.5-10.5) mg/dL Iron 16 L (59-158) ug/dL TIBC 177 mcg/dl % Saturation 9.0 L (20-50) % Unsat Iron Binding 161 (112-347) ug/dL Total Bilirubin (0.15-1.2) mg/dL AST (0-40) U/L ALT (0-41) U/L Alkaline Phosphata se (40-130) IU/L Total Protein (6.6-8.7) g/dL Albumin (3.5-5.2) g/dL Globulin (1.3-4.6) g/dL Lipase (13-60) U/L TSH 1.57 (0.27-4.20) uIU/ mL Urine Color (Yellow) Urine Appearance (CLEAR) Urine pH (5-7) Ur Specific Gravit y (1.005-1.030) Urine Protein (Negative) Urine Glucose (UA) (Normal) Urine Ketones (Negative) Urine Blood (Negative) Urine Nitrate (Negative) Urine Bilirubin (NEGATIVE) Urine Urobilinogen (Negative) mg/dL Ur Leukocyte Nanci ase (Negative) Serum Ketones Negative (Negative) Discharge Plan Discharge Patient Disposition: Admitted As Inpatient Admit Provider: Christian Boswell Clinical Impression: Primary squamous cell carcinoma of right lung, Urinary retention, Frequent falls, Palliative care status, Former smoker Condition: Stable Discharge Orders: Discharge Order (Routine); Ordered 05/26/20 Ordered By: Christian Boswell Referrals: [facility] – [place], [place] Hospice ([facility]) [Outside] ([facility] was called about your discharge.) Fernando Guerrero MD [Primary Care Provider] - 06/28/20 9:30 am (You have a follow up appointment with Dr. Cabello on June 28 at 9:30am) Carmen Weiss MD [Staff Physician] - 2 weeks (You have a hospital follow up appointment June 09 starting at 2:00PM for labs and the appointment at 3:30pm.) Discharge Diet: Cardiac and Diabetic Discharge Activity: Resume usual activity and Increase activity as tolerated Interventions: ED Discharge Assessment Last Done: 05/24/20 17:13 ED Charges Last Done: 05/24/20 17:13 Discharge Date/Time: 05/24/20 17:14 Coding Level of Care Code ED Otr Van Cdl Truck Driver for Chg Fwd Exam Comprehensive
--- NOTE | 2020-05-24 09:43 | PC.NURSE ---
Lower ABD pain resolved following cath placement. Chronic back pain remains.
[2020-05-24 09:46] LABS: Add Urine Microscopic? NO
[2020-05-24 09:46] LABS: Basophils % 0.5 %; Eosinophils # 0.2 10^3/uL (0.0-0.8); Eosinophils % 2.4 %; Hematocrit 27.9 % (42.0-52.0); Hemoglobin 8.6 g/dL (11.7-16.6); Lymphocytes # 0.7 10^3/uL (0.8-4.8); Lymphocytes % 8.2 %; Mean Corpuscular HGB Conc 30.8 g/dL (30.0-36.0); Mean Corpuscular Volume 90.9 fL (80-94); Monocytes # 0.7 10^3/uL (0.2-0.9); Monocytes % 7.8 %; Neutrophils % 80.8 %; Nucleated Red Blood Cells % 0 %; Platelet Count 317 10^3/cmm (130-400); Red Blood Count 3.07 10^6/uL (4.1-5.3); White Blood Count 8.7 10^3/uL (4.0-10.0)
[2020-05-24 09:47] LABS: Bilirubin Urine Neg (NEGATIVE); Blood Urine Neg (Negative); Glucose Urine UA Norm (Normal); Ketones Urine Negative (Negative); Nitrate Urine Negative (Negative); Protein Urine Neg (Negative); Specific Gravity, Urine 1.005 (1.005-1.030); Urine Appearance Clear (CLEAR); Urine Color Straw (Yellow)
[2020-05-24 09:48] LABS: Leukocyte Esterase Urine Negative (Negative); Urobilinogen Urine Norm (Negative)
[2020-05-24 10:04] LABS: Alanine Aminotransferase 9 U/L (0-41); Albumin Level 3.3 g/dL (3.5-5.2); Alkaline Phosphatase 77 IU/L (40-130); Anion Gap 14.4 (5-19); Aspartate Amino Transferase 14 U/L (0-40); Blood Urea Nitrogen 21 mg/dL (8-23); Calcium 9.5 mg/dL (8.5-10.5); Carbon Dioxide 28 mmol/L (22-29); Chloride 99 mmol/L (98-107); Globulin 3.7 g/dL (1.3-4.6); Glomerular Filtration Rate 134.4 mL/min (90-130); Glucose 107 mg/dL (65-115); Lipase 18 U/L (13-60); Osmolality Calculated 281 mOsm/kg (285-295); Potassium 4.4 mmol/L (3.5-5.1); Sodium 137 mmol/L (136-145); Total Bilirubin 0.4 mg/dL (0.15-1.2)
[2020-05-24 10:05] LABS: Ketone (Acetest) Serum Negative (Negative)
[2020-05-24] MEDS: morphine 4 mg/mL SDV 1 mL 6 MG IVP (11:05)
--- NOTE | 2020-05-24 11:17 | CTR_ITS ---
PROCEDURE INFORMATION: Exam: CT Lumbar Spine Without Contrast Exam date and time: 05/24/2020 11:22 AM Age: 69 years old Clinical indication: Injury or trauma; Fall; Initial encounter; Blunt trauma (contusions or hematomas); Prior surgery; Surgery date: 6+ months; Surgery type: L spine; Additional info: Lung CA w mets to spine TECHNIQUE: Imaging protocol: Computed tomography images of the lumbar spine without contrast. Radiation optimization: All CT scans at this facility use at least one of these dose optimization techniques: automated exposure control; mA and/or kV adjustment per patient size (includes targeted exams where dose is matched to clinical indication); or iterative reconstruction. COMPARISON: [facility] Lumbar Spine 2-3 views 11/03/2018 4:04 PM RADIATION DOSE METRICS: Total DLP (mGy-cm): 1688.74 FINDINGS: Vertebrae: The lumbar vertebral bodies maintain overall height and alignment. The facets align normally. There is multilevel facet arthropathy. No acute fracture. Discs/Spinal canal/Neural foramina: Multilevel disc degeneration and disc bulges. Soft tissues: No acute soft tissue abnormality. CT/CT lumbar spine wo con* [id number] IMPRESSION: No acute fracture. Radiation Dose CTDIVOL = (mGy): DLP = 1688.74 (mGy-cm)
--- NOTE | 2020-05-24 11:17 | CTR_ITS ---
PROCEDURE INFORMATION: Exam: CT Thoracic Spine Without Contrast Exam date and time: 05/24/2020 11:22 AM Age: 69 years old Clinical indication: Injury or trauma; Fall; Initial encounter; Blunt trauma (contusions or hematomas); Injury date: Today; Prior surgery; Surgery date: 6+ months; Surgery type: Lumbar spine; Additional info: Lung CA w mets to spine TECHNIQUE: Imaging protocol: Computed tomography images of the thoracic spine without contrast. Radiation optimization: All CT scans at this facility use at least one of these dose optimization techniques: automated exposure control; mA and/or kV adjustment per patient size (includes targeted exams where dose is matched to clinical indication); or iterative reconstruction. COMPARISON: MR thoracic spine wo/w [id number] 12/17/2019 8:23:29 AM RADIATION DOSE METRICS: Total DLP (mGy-cm): 979.9 FINDINGS: Vertebrae: No acute fracture. Lytic process in the T5, to a lesser extent the T4, vertebral bodies and right-sided posterior elements is redemonstrated. Involvement of the right 4th and 5th ribs posteromedially also noted. Discs/Spinal canal/Neural foramina: No significant disc space narrowing. No osseous spinal stenosis. Soft tissues: Right-sided paraspinal soft tissue compatible with neoplasm in the upper thoracic spine. CT/CT thoracic spin wo con* [id number] IMPRESSION: 1. Known neoplastic destructive process at T4 and T5. 2. No superimposed fracture identified. Radiation Dose CTDIVOL = (mGy): DLP = 979.9 (mGy-cm)
[2020-05-24] MEDS: fentaNYL 50 mcg/mL INJ 2mL IVP (13:59)
[2020-05-24] MEDS: fentaNYL 50 mcg Patch 1 PATCH TRANSDERMA (16:19)
[2020-05-24] MEDS: dexamethasone 10 mg/mL INJ IVP (16:20)
[2020-05-24 18:13] LABS: Glucose Point of Care 115 mg/dL (70-110)
--- NOTE | 2020-05-24 19:25 | P.HP_ITS ---
Providers/Chief Complaint Admitting Physician: Christian Boswell MD Primary Care Provider: Fernando Guerrero MD Chief Complaint: WEAKNESS, FALL, URINARY RETENTION History of Present Illness Chaitanya Underwood is a 69 year old male with past medical history of primary squamous cell carcinoma of the lung with mets to right T4-T5 at the epidural space on palliative therapy, atrial flutter, anticoagulation with Eliquis, former smoker, left-sided leg post polio syndrome, on therapeutic opiates, therapeutic opiate-induced constipation who presented to the ER today after developing weakness, numbness, decreased sensation in his bilateral legs getting worse over a period of 1 week, decreased urination for last 2 days along with chronic constipation. He denies of having any nausea, vomiting, headache, dizziness, flulike symptoms, cough, fevers. Found to have a hemoglobin of 8.6, white count of 8.7, creatinine of 0.6, sodium of 137, albumin of 3.3, UA negative for any UTI, thoracic CT consistent with lytic process in the T5 to a lesser extent the T4, vertebral bodies and the right-sided posterior elements, lumbar spine CT scan negative for any acute processes. In the ER patient was complaining of urinary retention for which Jeong was placed and he drained more than thousand cc of urine. On evaluation patient is lying comfortably in bed denying of any nausea, vomiting, headache. On further discussion with the patient regarding goals of care he states he would want to go hospice now and would want me to arrange that so that he can go back home. At baseline patient is mobile through walker and unfortunately is not able to do that these days because of progressive weakness for last 7 days. Today morning while he was trying to get up out of his bed while going to the chair his right leg gave away and he fell without hitting his head or needs to the ground. Review of Systems Const: Denies: fever(s), chills, body aches, change in appetite, malaise, night sweats, diaphoresis, change in sleep pattern, daytime sleepiness or snoring Eyes: Denies: change in vision, blurry vision, photophobia, eye discomfort or eye discharge ENMT: Denies: throat pain, enlarged tonsils, hoarseness, mouth pain, oral sores, dry mouth, tinnitus, nasal congestion or post nasal drip Card: Denies: chest pain, palpitations, irregular heart rhythm, edema, swelling of feet/ankles, lightheadedness, syncope, pre-syncope, dyspnea on exertion, orthopnea, leg pain with exertion or acrocyanosis Resp: Denies: dyspnea, productive cough, non-productive cough, wheezing, stri marlena, pain on inspiration, change in phlegm color, hemoptysis or chest congestion GI: Denies: abdominal pain, nausea, vomiting, hematemesis, coffee ground emesis, dysphagia, heartburn, diarrhea, constipation, bloating, GI cramping, change in bowel habits, pain on defecation, hematochezia or melena : Denies: flank pain, difficulty urinating, dysuria, urinary frequency, urinary urgency, urinary hesitancy, urinary dribbling, difficulty starting urination, change in urine stream, nocturia or hematuria Musc: Denies: neck pain, back pain, extremity pain, joint pain, joint swelling, joint redness, joint stiffness or limited range of motion Neuro: Reports: numbness in extremities, weakness in extremities, sensory changes, lack of coordination and frequent falls; Denies: headache(s), difficulty walking, dizziness, vertigo, confusion, Slurred speech present, difficulty communicating thoughts or seizure-like activity Psych: Denies: anxiety, depression, mood swings, panic attacks, hopelessness or irritability Endo: Denies: polyuria, polydipsia, tired all the time, cold intolerance, excessive sweating, flushing or heat intolerance Jasmeet/Lymph: Denies: easy bruising or easy bleeding All/Imm: Denies: tongue swelling, facial swelling or acute wheezing Medications/Allergies Home Medications Medication Instructions Recorded Confirmed Last Taken Type apixaban 2.5 mg tablet 2.5 mg PO BID 12/29/19 05/24/20 05/24/20 History aspirin 81 mg tablet,delayed 81 mg PO DAILY 12/29/19 05/24/20 05/23/20 History release irbesartan 75 mg tablet 75 mg PO DAILY 12/29/19 05/24/20 05/24/20 History metoprolol tartrate 50 mg tablet 50 mg PO BID 12/29/19 05/24/20 05/24/20 History digoxin 125 mcg (0.125 mg) tablet 125 mcg PO DAILY #90 tab 02/17/20 05/24/20 05/24/20 Rx furosemide 20 mg tablet 20 mg PO .every other day #30 tab 02/22/20 05/24/20 Unknown Rx potassium chloride 10 mEq 10 meq PO DAILY 90 Days #90 tab 03/17/20 05/24/20 05/24/20 Rx tablet,extended release gabapentin 300 mg capsule 300 mg PO TID #90 cap MDD 3 05/10/20 05/24/20 05/24/20 Rx naloxone 2 mg/0.4 mL 2 mg IM Q2M #0.8 ml 05/12/20 05/24/20 Unknown Rx injection,auto-injector celecoxib 200 mg capsule 200 mg PO DAILY #30 cap 05/18/20 05/24/20 Unknown Rx fentanyl 50 mcg/hr transdermal 1 patch TRANSDERMA Q72H 30 Days 05/18/20 05/24/20 05/21/20 Rx patch #10 each naloxegol 25 mg tablet 25 mg PO QAM #30 tab 05/18/20 05/24/20 05/24/20 Rx morphine 30 mg immediate release 30 mg PO Q4H PRN 30 Days #180 tab 05/19/20 05/24/20 05/24/20 Rx tablet folic acid 1,000 mcg PO BID 05/24/20 05/24/20 05/24/20 History prednisone 5 - 10 mg PO PRN 05/24/20 05/24/20 Unknown History Allergies Allergy/AdvReac Type Severity Reaction Status Date / Time sulfasalazine Allergy NAUSEA/LACK Verified 05/24/20 11:01 OF APETITE donepezil [From Aricept] AdvReac Intermediate DIARRHEA Verified 05/24/20 11:01 PFSH Acute PFSH: Medical History Atrial flutter Rate uncontrolled. With addition of digoxin rate is now controlled. 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 Has completed chemotherapy. Immunotherapy has been stopped. Has received palliative radiation to the spine. Seropositive rheumatoid arthritis of multiple joints Surgical History History of discectomy L5 History of left knee surgery History of partial colectomy History of repair of right rotator cuff Status post left foot surgery [place] Family History Other Cancer Lung disease Denies family history of Rheumatoid arthritis Lupus Social History Smoking and tobacco status: former smoker Quit status (tobacco): has quit using tobacco Year quit tobacco: 2108 Alcohol intake: never Lives independently: Yes Household members: spouse Marital status: History of recent travel: No Vitals/I&O/Wt Last Vital Signs Temp 97.9 F 05/24/20 19:22 Pulse 70 05/24/20 19:22 Resp 18 05/24/20 19:22 BP 166/69 05/24/20 19:22 Pulse Ox 95 05/24/20 19:22 Weight last 48 hrs Weight 62.596 kg Physical Exam Narrative: EXAM NARRATIVE: General: No acute distress, AO x3 HEENT: PERRLA, pupils bilaterally equal and reactive Chest: Normal vesicular breath sounds, no added sounds, equal good air entry bilaterally CVS: S1-S2 regular, no murmurs, no tachycardia, no gallops, no rubs Abdomen: Soft, nontender, no organomegaly, bowel sounds present Neuro: No focal deficits, no facial deformity, AO x3, power bilateral lower limbs 3/5, decreased sensation bilaterally in lower limbs, plantars bilaterally going down, pupils bilaterally equal and reactive, upper limbs power bilaterally 4 x 5 Urinary Catheter Management^: Jeong: Cath Placed During This Visit: no Data : 05/24/20 09:27 05/24/20 09:27 A&P Assessment and plan (1) Therapeutic opioid induced constipation: Status: Acute (2) Therapeutic opioid induced constipation: Status: Acute (3) Chronic anticoagulation: Status: Chronic (4) Atrial flutter: Status: Chronic Qualifiers: Atrial flutter type: typical Qualified Code(s): I48.3 - Typical atrial flutter (5) Primary squamous cell carcinoma of right lung: Status: Chronic (6) Palliative care status: Status: Acute (7) Frequent falls: Status: Acute (8) Weakness of both legs: Status: Acute (9) Malignant neoplasm metastatic to thoracic vertebral column with unknown primary site: Status: Acute (10) Urinary retention: Status: Acute Additional A&P Information 69-year-old gentleman past medical history of 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 Case discussed with Dr. Weiss discussed with outpatient oncologist. Solu-Cortef 100 mg stat followed by Decadron 4 mg oral 4 times daily. Continue home dose of pain medication with morphine 30 mg immediate release every 4 hours as needed. Aggressive bowel regimen because of opiate-induced constipation. As starting patient on Decadron will do AC at bedtime blood sugar checks along with insulin sliding scale at mild dose. Nystatin oral swish and swallow. Urinary retention: Continue with Jeong catheterization. Atrial flutter: Continue home dose of digoxin, metoprolol, Eliquis. Hypertension: Continue with home dose of ibesartan. Patient states he is aware of advanced disease and he has had discussion with his oncologist in the past and he does not want any invasive procedure and he has been on palliative therapy for some time and with worsening disease he would want to go for hospice now. He wants to arrange for home hospice so that he can go home. Given the goals of care will not go for any further evaluation and concentrate more on his comfort. DNR/DNI Regular diet. Lovenox. Consult care coordination for hospice referral tomorrow. Attestations Medical Necessity Statement*: Most likely more than 2 midnights for acute urinary retention, acute weakness in his lower limbs because of metastasis T4 and T5 Time Spent in Patient Care: Greater than 35 minutes (>than 50% of time spent in counselling and/or direct pt care on unit) . Coding Level of Care Code Acute Parking Enforcement Specialist for Chg Fwd Diagnoses Therapeutic opioid induced constipation K59.03; T40.2X5A Therapeutic opioid induced constipation K59.03; T40.2X5A Chronic anticoagulation Z79.01 Atrial flutter I48.3 Atrial flutter type: typical Primary squamous cell carcinoma of right lung C34.91 Palliative care status Z51.5 Frequent falls R29.6 Weakness of both legs R29.898 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
[2020-05-24 20:08] LABS: Iron 16 ug/dL (59-158); Total Iron Binding Capacity 177 mcg/dl; Unsaturated Iron Binding 161 ug/dL (112-347)
[2020-05-24 20:18] LABS: Thyroid Stimulating Hormone 1.57 uIU/mL (0.27-4.20)
[2020-05-24 20:28] LABS: Glucose Point of Care 179 mg/dL (70-110)
[2020-05-24] MEDS: enoxaparin 40 mg/0.4 mL Syringe SUBCUT (20:54)
[2020-05-24] MEDS: nystatin 100,000 unit/mL UDC 5 mL 100000 UNIT PO (20:54)
[2020-05-24] MEDS: sennosides 8.6 mg Tablet 17.2 MG PO (20:55)
[2020-05-24] MEDS: dexamethasone 4 mg Tablet PO (20:55)
[2020-05-24] MEDS: morphine IR 15 mg Tablet 30 MG PO (20:55)
[2020-05-24] MEDS: gabapentin 300 mg Capsule PO (20:55)
[2020-05-24] MEDS: hydrocortisone 100 mg/2 mL SDV IVP (21:08)
[2020-05-25] VITALS (10 sets, daily range): BP systolic 118–145; BP diastolic 51–69; PULSE 56–104; RESP 16–18; TEMP 36.4–36.8; O2SAT 96–100
[2020-05-25 05:14] LABS: Basophils % 0.2 %; Hematocrit 32.1 % (42.0-52.0); Hemoglobin 9.9 g/dL (11.7-16.6); Lymphocytes # 0.6 10^3/uL (0.8-4.8); Lymphocytes % 8.8 %; Mean Corpuscular HGB Conc 30.8 g/dL (30.0-36.0); Mean Corpuscular Hemoglobin 27.8 pg (28.0-34.0); Mean Corpuscular Volume 90.2 fL (80-94); Mean Platelet Volume 10.7 fL (7.4-10.4); Monocytes # 0.1 10^3/uL (0.2-0.9); Monocytes % 1.3 %; Neutrophils # 5.7 10^3/uL (1.8-7.7); Neutrophils % 89.5 %; Nucleated Red Blood Cells % 0 %; Platelet Count 344 10^3/cmm (130-400); Red Blood Count 3.56 10^6/uL (4.1-5.3); Red Cell Distribution Width 16.6 % (12.1-15.1); White Blood Count 6.4 10^3/uL (4.0-10.0)
[2020-05-25 05:29] LABS: Alanine Aminotransferase 8 U/L (0-41); Albumin Level 3.1 g/dL (3.5-5.2); Alkaline Phosphatase 73 IU/L (40-130); Anion Gap 16.5 (5-19); Aspartate Amino Transferase 13 U/L (0-40); Blood Urea Nitrogen 22 mg/dL (8-23); Calcium 9.2 mg/dL (8.5-10.5); Carbon Dioxide 26 mmol/L (22-29); Chloride 100 mmol/L (98-107); Globulin 3.4 g/dL (1.3-4.6); Glomerular Filtration Rate 134.4 mL/min (90-130); Glucose 130 mg/dL (65-115); Osmolality Calculated 284 mOsm/kg (285-295); Potassium 4.5 mmol/L (3.5-5.1); Sodium 138 mmol/L (136-145); Total Bilirubin 0.3 mg/dL (0.15-1.2); Total Protein 6.5 g/dL (6.6-8.7)
[2020-05-25 06:29] LABS: Glucose Point of Care 134 mg/dL (70-110)
[2020-05-25] MEDS: morphine IR 15 mg Tablet 30 MG PO (07:17)
[2020-05-25] MEDS: apixaban 5 mg Tablet 2.5 MG PO ×2 (08:24→17:12)
[2020-05-25] MEDS: metoprolol tartrate 50 mg Tablet PO ×2 (08:24→17:11)
[2020-05-25] MEDS: losartan 50 mg Tablet 25 MG PO (08:25)
[2020-05-25] MEDS: potassium chloride ER 10 mEq Tablet PO (08:25)
[2020-05-25] MEDS: docusate sodium 100 mg Capsule PO ×2 (08:25→17:10)
[2020-05-25] MEDS: folic acid 1 mg Tablet PO ×2 (08:25→17:10)
[2020-05-25] MEDS: digoxin 125 mcg Tablet PO (08:26)
[2020-05-25] MEDS: aspirin 81 mg EC Tablet PO (08:26)
[2020-05-25] MEDS: FUROsemide 20 mg Tablet PO (08:26)
[2020-05-25] MEDS: CELEcoxib 200 mg Capsule PO (08:27)
[2020-05-25] MEDS: gabapentin 300 mg Capsule PO ×3 (08:27→20:43)
[2020-05-25] MEDS: nystatin 100,000 unit/mL UDC 5 mL 100000 UNIT PO ×4 (08:27→20:43)
[2020-05-25] MEDS: dexamethasone 4 mg Tablet PO ×4 (08:27→20:43)
--- NOTE | 2020-05-25 09:52 | PC.CHAP ---
Pastoral Care Encounter/Spiritual Assessment Type of Contact [] Declined console manager visit [] Patient/Family/Request visit [] Outpatient visit [] Follow-up visit [] Physician referral [] Code/Alert [x] Routine visit [] Staff referral [] Actively dying [] Patient sleeping [] Family support [] [] Out of room [] Palliative care [] [] Receiving care in room [] Pre-surgical visit [] Trauma [] Long length of stay [] ICU visit [] Other: Relational/Emotional Strength [] Patient feels connected with others/family/visitors/staff [] Distress [] Loneliness/isolation [] Abandonment Spirituality of Patient [] Person of Soo [] Attends Sabianist of their Soo [] Believes in Prayer [] Reads Bible or Hindu materials [] There are Spiritual issues to be addressed Mental Health Practitioner Interventions [x] Prayer [x] Active listening [x] Non-anxious presence [x] Spiritual/emotional support [] Crisis/trauma care [] Spiritual counseling [] Bereavement support [] Provided bereavement packet [] Provided Bible/devotional materials [] Provided toy/stuffed animal, coloring book to patient or family member [] Provided Communion [] Anointing/[place] [] Salvation [x] Completed spiritual assessment [] Other: Impact on Illness or Injury [] Angry [] Fearful [] Anxious [] Often cries [] Exhaustion [] Unable to work [] Unable to attend buddhist [] Unable to walk/stand [] Unable to read [] Unable to drive [] Unable to eat/drink [] Unable to sleep [] Unable to be with family [] Patient intubated [] Other: Summary Patient a ray of sunshine in a somewhat cloudy day. Working on pain management. Discussed hospice, and life in general. Time spent with patient 25 min
[2020-05-25 10:59] LABS: Glucose Point of Care 158 mg/dL (70-110)
--- NOTE | 2020-05-25 16:01 | PC.NURSE ---
Per Armin in [facility], patient's is requesting that patient be discharged tomorrow because she is getting house ready for Hospice equipment. Armin said he let Dr Boswell know patient's request.
[2020-05-25 17:05] LABS: Glucose Point of Care 154 mg/dL (70-110)
--- NOTE | 2020-05-25 18:11 | P.PN_ITS ---
Subjective Subjective: Interval history: No acute events overnight. Patient examination today comfortable lying in bed. He states his symptoms are little better than before. He is able to move his left leg a little bit more than before. Right leg has less numbness. Vitals/I&O/Wt Last Vital Signs Temp 98.2 F 05/25/20 16:00 Pulse 56 L 05/25/20 16:00 Resp 17 05/25/20 16:00 BP 118/51 05/25/20 16:00 Pulse Ox 97 05/25/20 16:00 05/25/20 05/25/20 05/25/20 06:59 14:59 22:59 Intake Total 360 / 360 Output Total 700 / 700 350 / 350 Balance -700 / -700 360 / 360 -350 / 10 Weight last 48 hrs Weight 63.758 kg Weight 62.596 kg Physical Exam Narrative: EXAM NARRATIVE: General: No acute distress, AO x3 HEENT: PERRLA, pupils bilaterally equal and reactive Chest: Normal vesicular breath sounds, no added sounds, equal good air entry bilaterally CVS: S1-S2 regular, no murmurs, no tachycardia, no gallops, no rubs Abdomen: Soft, nontender, no organomegaly, bowel sounds present Neuro: No focal deficits, no facial deformity, AO x3, power bilateral lower limbs 3/5, decreased sensation bilaterally in lower limbs, plantars bilaterally going down, pupils bilaterally equal and reactive, upper limbs power bilaterally 4 x 5 Urinary Catheter Management^: Jeong: Cath Placed During This Visit: no Data : 05/25/20 04:37 05/25/20 04:37 A&P Assessment and plan (1) Therapeutic opioid induced constipation: Status: Acute (2) Chronic anticoagulation: Status: Chronic (3) Atrial flutter: Status: Chronic Qualifiers: Atrial flutter type: typical Qualified Code(s): I48.3 - Typical atrial flutter (4) 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 Case discussed with Dr. Abhishek grant who is patient's outpatient oncologist. Continue with Decadron 4 mg oral 4 times daily. Continue home dose of pain medication with morphine 30 mg immediate release every 4 hours as needed. Aggressive bowel regimen because of opiate-induced constipation. As starting patient on Decadron will do AC at bedtime blood sugar checks along with insulin sliding scale at mild dose. Nystatin oral swish and swallow. Urinary retention: Continue with Jeong catheterization. Patient will most likely go home with Jeong catheterization. Jeong will most likely need to be changed until patient has urinary retention. Atrial flutter: Patient's heart rate has been on the lower side in between. Going as on his 50s. Decrease metoprolol to 37.5 mg twice daily. Check digoxin levels. For now continue home dose of digoxin. Continue home dose of Eliquis. Hypertension: Continue with home dose of ibesartan. Given multiple comorbidities and terminal carcinoma for which patient has been on palliative chemotherapy patient has opted for home hospice. Patient has chosen [facility] [place] hospice. Hospice has visited with both patient and his . They need further adjustments to be made at home for safe and comfortable discharge for patient should be ready by tomorrow. We will hold off on discharge today and will discharge most likely tomorrow once all the arrangements are made. DNR/DNI Regular diet. Lovenox. Consult care coordination for hospice referral tomorrow. Attestations Medical Necessity Statement*: Advanced carcinoma, hospice, awaiting safe/comfortable discharge Time Spent in Patient Care: Greater than 35 minutes (>than 50% of time spent in counselling and/or direct pt care on unit) . 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
[2020-05-25] MEDS: enoxaparin 40 mg/0.4 mL Syringe SUBCUT (20:43)
[2020-05-25] MEDS: sennosides 8.6 mg Tablet 17.2 MG PO (20:44)
[2020-05-25 20:52] LABS: Glucose Point of Care 128 mg/dL (70-110)
[2020-05-26] VITALS (11 sets, daily range): BP systolic 121–151; BP diastolic 59–72; PULSE 53–95; RESP 16–18; TEMP 36.4–36.7; O2SAT 94–98
[2020-05-26] MEDS: morphine IR 15 mg Tablet 30 MG PO ×3 (00:08→13:48)
[2020-05-26 03:16] LABS: Digoxin 0.8 ng/mL (0.6-1.2)
[2020-05-26 06:38] LABS: Glucose Point of Care 141 mg/dL (70-110)
[2020-05-26] MEDS: aspirin 81 mg EC Tablet PO (08:54)
[2020-05-26] MEDS: digoxin 125 mcg Tablet PO (08:54)
[2020-05-26] MEDS: apixaban 5 mg Tablet 2.5 MG PO (08:54)
[2020-05-26] MEDS: gabapentin 300 mg Capsule PO ×2 (08:54→14:51)
[2020-05-26] MEDS: potassium chloride ER 10 mEq Tablet PO (08:55)
[2020-05-26] MEDS: dexamethasone 4 mg Tablet PO ×2 (08:55→13:47)
[2020-05-26] MEDS: docusate sodium 100 mg Capsule PO (08:55)
[2020-05-26] MEDS: CELEcoxib 200 mg Capsule PO (08:55)
[2020-05-26] MEDS: metoprolol tartrate 25 mg Tablet 37.5 MG PO (08:55)
[2020-05-26] MEDS: losartan 50 mg Tablet 25 MG PO (08:56)
[2020-05-26] MEDS: nystatin 100,000 unit/mL UDC 5 mL 100000 UNIT PO ×2 (08:57→13:47)
[2020-05-26] MEDS: folic acid 1 mg Tablet PO (08:59)
--- NOTE | 2020-05-26 11:12 | PM.DCS ---
Discharge Providers Date of Admission: 05/24/20 15:53 Date of Discharge: May 26, 2020 Attending Provider at Admission: Christian Boswell MD Attending Provider at Discharge: Christian Boswell MD Primary Care Provider: Fernando Geurrero MD Diagnoses at Discharge Discharge Diagnosis (1) Therapeutic opioid induced constipation: Status: Acute (2) Chronic anticoagulation: Status: Chronic Problem details: Eliquis (3) Atrial flutter: Status: Chronic Problem details: Rate uncontrolled. With addition of digoxin rate is now controlled. 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 Has completed chemotherapy. Immunotherapy has been stopped. Has received palliative radiation to the spine. 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: Status: Acute (9) Urinary retention: Status: Acute Reason for Visit Reason for Visit: WEAKNESS, FALL, URINARY RETENTION Hospital Course Discharge Summary: Chaitanya Underwood is a 69 year old male with past medical history of primary squamous cell carcinoma of the lung with mets to right T4-T5 at the epidural space on palliative therapy, atrial flutter, anticoagulation with Eliquis, former smoker, left-sided leg post polio syndrome, on therapeutic opiates, therapeutic opiate-induced constipation who presented to the ER today after developing weakness, numbness, decreased sensation in his bilateral legs getting worse over a period of 1 week, decreased urination for last 2 days along with chronic constipation. He denies of having any nausea, vomiting, headache, dizziness, flulike symptoms, cough, fevers. Found to have a hemoglobin of 8.6, white count of 8.7, creatinine of 0.6, sodium of 137, albumin of 3.3, UA negative for any UTI, thoracic CT consistent with lytic process in the T5 to a lesser extent the T4, vertebral bodies and the right-sided posterior elements, lumbar spine CT scan negative for any acute processes. In the ER patient was complaining of urinary retention for which Jeong was placed and he drained more than thousand cc of urine. On evaluation patient is lying comfortably in bed denying of any nausea, vomiting, headache. On further discussion with the patient regarding goals of care he states he would want to go hospice now and would want me to arrange that so that he can go back home. At baseline patient is mobile through walker and unfortunately is not able to do that these days because of progressive weakness for last 7 days. Today morning while he was trying to get up out of his bed while going to the chair his right leg gave away and he fell without hitting his head or needs to the ground. His care was discussed with his outpatient oncologist. Patient was started on Decadron. He responded fairly well to the treatment. Patient had some sensation and power returning to his legs. As per patient's wishes and goals of care discussion hospice was arranged. Once all the adjustments and arrangements were made patient was discharged in hemodynamic stable condition with home hospice. Patient is advised to follow-up with Dr. Weiss who is his outpatient oncologist in next 2 weeks. Patient has a indwelling Jeong catheter for acute urinary retention. Jeong catheter should be changed at least once every month. Patient was also informed regarding possible Jeong removal trial next week. Patient verbalized understanding. Physical Exam Narrative: EXAM NARRATIVE: General: No acute distress, AO x3 HEENT: PERRLA, pupils bilaterally equal and reactive Chest: Normal vesicular breath sounds, no added sounds, equal good air entry bilaterally CVS: S1-S2 regular, no murmurs, no tachycardia, no gallops, no rubs Abdomen: Soft, nontender, no organomegaly, bowel sounds present Neuro: No focal deficits, no facial deformity, AO x3, power bilateral lower limbs 3/5, decreased sensation bilaterally in lower limbs, plantars bilaterally going down, pupils bilaterally equal and reactive, upper limbs power bilaterally 4 x 5 Urinary Catheter Management^: Jeong: Cath Placed During This Visit: no Discharge Data Data Completed and Pending: Completed Studies During Hospitalization Category Date Time Status CT lumbar spine w o con* [id number] Urgen t Cat Scan 05/24/20 11:[address] thoracic spin wo con* [id number] Urge nt Cat Scan 05/24/20 11:17 Completed Labs from last 24 hours 05/26/20 05/25/20 05/25/20 06:29 20:45 18:38 POC Glucose 141 128 Digoxin 0.8 05/25/20 17:01 POC Glucose 154 Digoxin Vitals: Last Vital Signs Temp 97.9 F 05/26/20 08:00 Pulse 75 05/26/20 08:54 Resp 16 05/26/20 08:52 BP 121/59 05/26/20 08:56 Pulse Ox 95 05/26/20 08:52 Discharge Plan Discharge Patient Disposition: Hospice - Home Condition: Stable Prescriptions: New nystatin 100,000 unit/mL Suspension 100,000 unit PO QID Qty: 30 RF: 0 Novolog U-100 Insulin aspart 100 unit/mL Solution See Rx Instructions .ROUTE .COMPLEX Qty: 10 RF: 0 dexamethasone 4 mg Tablet 4 mg PO QID Qty: 30 RF: 0 Continued gabapentin 300 mg capsule 300 mg PO TID MDD 3 Qty: 90 RF: 0 fentanyl 50 mcg/hr patch 72 hour 1 patch TRANSDERMA Q72H 30 Days Qty: 10 RF: 0 celecoxib [Celebrex] 200 mg capsule 200 mg PO DAILY Qty: 30 RF: 0 naloxegol 25 mg tablet 25 mg PO QAM Qty: 30 RF: 0 morphine 30 mg tablet 30 mg PO Q4H PRN (Reason: cancer pain) 30 Days Qty: 180 RF: 0 irbesartan 75 mg tablet 75 mg PO DAILY RF: 0 metoprolol tartrate 50 mg tablet 50 mg PO BID RF: 0 Eliquis 2.5 mg tablet 2.5 mg PO BID RF: 0 aspirin [Adult Aspirin Regimen] 81 mg tablet,delayed release (DR/EC) 81 mg PO DAILY RF: 0 Lasix 20 mg tablet 20 mg PO .every other day Qty: 30 RF: 2 digoxin 125 mcg (0.125 mg) tablet 125 mcg PO DAILY Qty: 90 RF: 3 potassium chloride 10 mEq tablet extended release 10 meq PO DAILY 90 Days Qty: 90 RF: 3 naloxone 2 mg/0.4 mL auto-injector 2 mg IM Q2M Qty: 0.8 RF: 0 folic acid 1,000 mcg PO BID RF: 0 Discontinued prednisone 5 mg tablet 5 - 10 mg PO PRN RF: 0 Discharge Orders: Discharge Order (Routine); Ordered 05/26/20 Ordered By: Christian Boswell [place] [facility] ([facility]) [Outside] ([facility] was called about your discharge.) Fernando Guerrero MD [Primary Care Provider] - 06/28/20 9:30 am (You have a follow up appointment with Dr. Cabello on June 28 at 9:30am) Carmen Weiss MD [Staff Physician] - 2 weeks (You have a hospital follow up appointment June 09 starting at 2:00PM for labs and the appointment at 3:30pm.) Discharge Diet: Cardiac and Diabetic Discharge Activity: Resume usual activity and Increase activity as tolerated Patient Instructions: Dexamethasone (By mouth), Insulin Aspart, Recombinant (Injection), Urinary Retention in Men (GEN), Fall Prevention (DC) Discharge Date/Time: 05/26/20 15:59 Discharge Attestations Time Spent in Discharge Care*: greater than 30 min Quality Metrics Clinical Quality Measures During this hospital stay, did patient experience: None Coding Level of Care Code Acute Fence Installer for Chg Fwd Diagnoses Therapeutic opioid induced constipation K59.03; T40.2X5A Chronic anticoagulation Z79.01 Atrial flutter I48.3 Atrial flutter type: typical Primary squamous cell carcinoma of right lung C34.91 Palliative care status Z51.5 Frequent falls R29.6 Weakness of both legs R29.898 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
[2020-05-26 12:51] LABS: Glucose Point of Care 248 mg/dL (70-110)
[2020-05-26 12:51] LABS: Glucose Point of Care 295 mg/dL (70-110)
== END 2020-05-26 15:59 | disposition hospice, home (50) | DRG 696 ==
LOC: ER 09:37 → MEDSURG 16:53
PROVIDERS: Family Medicine; Admitting Provider Student in an Organized Health Care Education/Training Program; PCP Family Medicine; Visit Provider Student in an Organized Health Care Education/Training Program
DX: R33.9 Retention of urine, unspecified (principal); I48.3 Typical atrial flutter; C34.91 Malignant neoplasm of unspecified part of right bronchus or lung; C79.51 Secondary malignant neoplasm of bone; K59.03 Drug induced constipation; Z79.01 Long term (current) use of anticoagulants; T40.2X5A Adverse effect of other opioids, initial encounter; Z51.5 Encounter for palliative care; Z66 Do not resuscitate; Y92.009 Unspecified place in unspecified non-institutional (private) residence as the place of occurrence of the external cause; Z91.81 History of falling; Z87.891 Personal history of nicotine dependence; Z79.82 Long term (current) use of aspirin; M05.89 Other rheumatoid arthritis with rheumatoid factor of multiple sites; I10 Essential (primary) hypertension
CPT/HCPCS: 12345; 36415; 36416; 51702; 72128; 72131; 80053; 80162; 81003; 82009; 82962; 83540; 83550; 83690; 84443; 85025; 96372; 96375; 97161; 99283; J1100; J1650; J1720; J1815; J2270; J3010; J8540